=== PATIENT | female | born 1935 | race Caucasian/White ===

== ENCOUNTER 2017-12-08 14:31 | Inpatient (IN) | payer OTHER ==
--- NOTE | 2017-12-08 15:17 | PDOC ---
History of Present Illness - General Chief Complaint: Respiratory Stated Complaint: WEAKNESS Time Seen by Provider: 12/08/17 15:07 - History of Present Illness Initial Comments: 12/08/17 15:20 The patient is an 82 year old female with a history of HTN, COPD, RA, Anemia, Hypothyroid, UTI, Dementia, GERD, Breast CA who presents for evaluation of generalized weakness. The patient is accompanied by family who assist in providing the history. They report that the patient has been experiencing more generalized weakness and fatigue with reduced appetite prompting her presentation to the ED for evaluation. The daughter notes that the patient has had similar presentations due to UTI in the past. The [facility] as well. History is limited from the patient due to her dementia. The patient otherwise denies chest pain, SOB, nausea, vomiting , abdominal pain or changes with bowel movements. Past History - Past Medical History Allergies/Adverse Reactions: Allergies Allergy/AdvReac Type Severity Reaction Status Date / Time Penicillins Allergy Verified 12/08/17 14:59 Sulfa (Sulfonamide Allergy Verified 12/08/17 14:59 Antibiotics) Home Medications: Ambulatory Orders Acetaminophen 650 mg PO PRN 12/08/17 Acidoph/L.bulg/Bif.b/S.thermop [Leonela-Bid Caplet] 1 each PO BID 12/08/17 Atenolol [Tenormin -] 50 mg PO DAILY 12/08/17 Docusate Sodium 200 mg PO HS 12/08/17 Duloxetine HCl [Cymbalta] 60 mg PO DAILY 12/08/17 Ferrous Sulfate 325 mg PO BID 12/08/17 Fluconazole 200 mg PO DAILY 12/08/17 Gabapentin [Neurontin] 100 mg PO TID 12/08/17 Lansoprazole [Prevacid] 30 mg PO DAILY 12/08/17 Leflunomide [Arava -] 10 mg PO DAILY 12/08/17 Levothyroxine [Synthroid -] 112 mcg PO DAILY 12/08/17 Lisinopril [Prinivil] 10 mg PO DAILY 12/08/17 Loratadine [Claritin] 10 mg PO DAILY 12/08/17 Mag Hydrox/Aluminum Hyd/Simeth [Maalox Advanced Suspension] 30 ml PO TID PRN 05/19 Magnesium Hydroxide [Milk of Magnesia] 30 ml PO DAILY PRN 12/08/17 Melatonin 3 mg PO HS 12/08/17 Mirtazapine 22.5 mg PO DAILY 12/08/17 Olopatadine HCl [Patanol] 1 drop OU DAILY 12/08/17 Oxybutynin Chloride [Oxybutynin Chloride ER] 5 mg PO DAILY 12/08/17 Rivaroxaban [Xarelto -] 15 mg PO DAILY 12/08/17 Sennosides [Senna] 1 tab PO HS 12/08/17 Anemia: Yes Cancer: Yes (Breast CA) COPD: No GI Disorders: Yes (GERD) HTN: Yes Thyroid Disease: Yes (Hypothyroid) Other medical history: cellulitis - Surgical History Orthopedic Surgery: (LUMBAR SURGERY WITH SUKHJINDER PLACEMENT) - Suicide/Smoking/Psychosocial Hx Smoking History: Unknown if ever smoked Have you smoked in the past 12 months: No Information on smoking cessation initiated: No Hx Alcohol Use: No Drug/Substance Use Hx: No Review of Systems - Review of Systems Comments:: 12/08/17 15:42 Constitutional: Fevers, Fatigue, Anorexia. No chills, malaise HEENT: No Rhinorrhea, nasal congestion, visual changes Cardiovascular: No chest pain, syncope, palpitations, lightheadedness Respiratory: No Cough, SOB, Hemoptysis, Gastrointestinal: No Abdominal pain, Nausea, Vomiting, Constipation, Diarrhea, Melena Genitourinary: No Dysuria, Frequency, Urgency, Hesitancy, Hematuria, Flank pain Musculoskeletal: No Myalgia, arthralgia Skin: No rashes, itching, bruising, pallor Neurologic: No Headache, Dizziness, Numbness, Weakness, or Tingling Psychiatric: No Hallucinations. No SI or HI *Physical Exam - Vital Signs Last Vital Signs Temp Pulse Resp BP Pulse Ox 62 16 125/60 94 L 12/08/17 14:59 12/08/17 14:59 12/08/17 14:59 12/08/17 14:59 - Physical Exam Comments: 12/08/17 15:43 General Appearance: Nourished. No Apparent Distress HEENT: EOMI, TONI. No Pharyngeal Erythema, Tonsillar Exudate, Tonsillar Erythema Neck: No Cervical Lymphadenopathy Respiratory/Chest: Lungs Clear, Normal Breath Sounds. Bibasilar rales noted on exam. NoRhonchi, Wheezing Cardiovascular: Regular Rhythm, Regular Rate. No Murmur, Gallops, Rubs Gastrointestinal/Abdominal: Normal Bowel Sounds, Soft. No Guarding, Rebound, Tenderness Musculoskeletal: No CVA Tenderness Extremity: Normal Capillary Refill Integumentary: Normal Color, Dry, Warm Neurologic: Oriented x2 , Alert, Normal Mood/Affect, Normal Response, Heart Score/ECG Review #1 ECG reviewed & interpreted by me at: 15:45 (Prolonged QT. Inverted T waves in leads v3-v6) General ECG Interpretation: Sinus Rhythm, Normal Rate, No acute ischemic changes ED Treatment Course - LABORATORY CBC & Chemistry Diagram: 12/08/17 16:00 12/08/17 16:00 Medical Decision Making - Medical Decision Making 12/08/17 16:01 The patient is an 82 year old female with a history of HTN, COPD, RA, Anemia, Hypothyroid, UTI, Dementia, GERD, Breast CA who presents for evaluation of generalized weakness. Differential includes but is not limited to: UTI, Sepsis , Pneumonia, infectious, metabolic derangement. Given the patient history, we will obtain a sepsis work up including a cbc, cmp, lactate, troponin, vbg, ua, urine culture, chest plain film, ekg to evaluate further for possible etiologies. We will continue to monitor and reassess in the meantime. 12/08/17 17:36 CBC demonstrates an elevated wbc to 10.2. CMP demonstrates an elevated creatinine to 2.4. UA is positive for leuk esterase with elevated wbc. Given the the patient's lab results, it is likely her symptoms are due to a UTI and YAIR. The patient has a history of ESBL E.Coli. We discussed the case with Dr. Perdomo who recommended ertapenem for antibiotic coverage. The patient will require admission for iv hydration for YAIR and antibiotics. We discussed the case with the hospitalist team who accepted the patient for admission. *DC/Admit/Observation/Transfer Diagnosis at time of Disposition: YAIR (acute kidney injury) UTI (urinary tract infection) Qualifiers: Urinary tract infection type: site unspecified Hematuria presence: without hematuria Qualified Code(s): N39.0 - Urinary tract infection, site not specified - Discharge Dispostion Condition at time of disposition: Guarded Admit: Yes - Referrals - Patient Instructions - Post Discharge Activity
[2017-12-08 16:17] LABS: BASO % 0.7 % (0-2.0); EOS % 0.1 % (0-4.5); HEMATOCRIT 31.5 % (32.4-45.2); HEMOGLOBIN 10.6 GM/dL (10.7-15.3); LYMPH % 7.6 % (8-40); MCH 30.3 pg (25.7-33.7); MCHC 33.6 g/dl (32.0-36.0); MEAN CELL VOLUME 90.2 fl (80-96); MEAN PLT VOLUME 9.8 fl (7.5-11.1); NEUT % 84.6 % (42.8-82.8); PLATELET COUNT 184 K/MM3 (134-434); RBC 3.49 M/mm3 (3.60-5.2); RDW 14.3 % (11.6-15.6); WHITE BLOOD COUNT 10.9 K/mm3 (4.0-10.0)
[2017-12-08 16:22] LABS: VENOUS PC02 33.6 mmHg (38-52); VENOUS PH 7.38 (7.32-7.42); VENOUS PO2 40.8 mmHg (28-48)
[2017-12-08 16:33] LABS: INR 1.12 (0.82-1.09); PROTHROMBIN TIME (PATIENT) 12.6 SEC (9.98-11.88)
[2017-12-08 16:36] LABS: ACTIVATED PTT 27.4 SECONDS (26.9-34.4)
[2017-12-08 16:48] LABS: ALBUMIN 3.3 g/dl (3.4-5.0); ALK PHOS 131 U/L (45-117); ANION GAP 9 (8-16); BILIRUBIN,TOTAL 0.4 mg/dL (0.2-1.0); BLOOD UREA NITROGEN 48 mg/dL (7-18); CALCIUM 7.8 mg/dL (8.5-10.1); CHLORIDE 102 mmol/L (98-107); CO2 21 mmol/L (21-32); CREATININE 2.4 mg/dL (0.55-1.02); GLUCOSE,RANDOM 118 mg/dL (74-106); SGOT/AST 52 U/L (15-37); SGPT/ALT 39 U/L (12-78); SODIUM 132 mmol/L (136-145); TOT PROT 7.2 g/dl (6.4-8.2)
[2017-12-08 17:01] LABS: URINE APPEARANCE CLOUDY; URINE BILIRUBIN NEGATIVE (<2.0 mg/dL); URINE BLOOD 1+ (NEGATIVE); URINE COLOR DKYELLOW; URINE GLUCOSE (UA) NEGATIVE (NEGATIVE); URINE KETONE NEGATIVE (NEGATIVE); URINE NITRITE NEGATIVE (NEGATIVE); URINE UROBILINOGEN NEGATIVE mg/dL (0.2-1.0)
[2017-12-08 17:03] LABS: URINE LEUK ESTERASE 2+ (NEGATIVE); URINE PROTEIN 2+ (NEGATIVE)
[2017-12-08 17:04] LABS: URINE BACTERIA RARE /hpf (NONE SEEN); URINE HYALINE CAST 6 /lpf; URINE MUCUS FEW
--- NOTE | 2017-12-08 17:35 | PDOC ---
Attending Attestation - HPI HPI: 12/08/17 17:35 Pt is a 82 yo F resident from nursing facility with a PMHx of HTN, COPD, RA, Anemia, Hypothyroid, UTI, Dementia, GERD, Breast CA who presents to the ED with generalized weakness and AMS today. As per daughter, patient appears increasingly fatigued and weak which is unusual for her. Family at bedside report presentation today is similar to her UTIs in the past. As per family, patient had 101 fever at [place] and presents to the ED for further evaluation. - Physicial Exam PE: 12/08/17 17:35 GENERAL: Awake, alert, and fully oriented, in no acute distress. Sleeping comfortably. HEAD: No signs of trauma EYES: PERRLA, EOMI, sclera anicteric, conjunctiva clear ENT: Auricles normal inspection, nares patent, Moist mucosa NECK: Normal ROM, supple, no lymphadenopathy, JVD, or masses LUNGS: Breath sounds equal, clear to auscultation bilaterally. No wheezes, and no crackles HEART: Regular rate and rhythm, normal S1 and S2, no murmurs, rubs or gallops ABDOMEN: Soft, nontender, normoactive bowel sounds. No guarding, no rebound. No masses EXTREMITIES: Normal range of motion, no edema. No clubbing or cyanosis. No cords, erythema, or tenderness. Warm and well perfused. NEUROLOGICAL: Normal speech. Drowsy but arousable. Follows commands. SKIN: Warm, Dry, normal turgor, no rashes or lesions noted. - Medical Decision Making 12/08/17 17:35 Documentation prepared by Rica Hendrickson, acting as medical transcriber for Yuliana Morejon MD <Rica Hendrickson - Last Filed: 12/08/17 17:35> - Resident Resident Name: Emeka Frias - ED Attending Attestation I have performed the following: I have examined & evaluated the patient, The case was reviewed & discussed with the resident, I agree w/resident's findings & plan, Exceptions are as noted - Medical Decision Making 12/08/17 17:33 82 yo F here from nursing facility long ter resident there for AMS concerns by her daughter.who noticed pt altered recently., more drowsy, has had frequent uti. decreased po intake. differential sepsis, electrolyte abnml, uti, dehydration . plan labs ua cultures , iv hydration . yessyley admit. <Yuliana Morejon - Last Filed: 12/08/17 19:13> Heart Score/ECG Review #1 General ECG Interpretation: Sinus Rhythm, Normal Rate, Normal Intervals, No acute ischemic changes Compared to previous ECG there are: No significant change (comparison 01/04/16 . TWI V4 - V6) <Yuliana Morejon - Last Filed: 12/08/17 19:13>
[2017-12-08] MEDS ORDERED: ERTAPENEM SODIUM 1 GM/50 ML PRE-DOCKED IVPB ONE (17:42)
[2017-12-08] MEDS ORDERED: ACETAMINOPHEN 1000 MG/100 ML VIAL (NON FORMULARY) IVPB ONE (17:43)
[2017-12-08] MEDS ORDERED: SODIUM CHLORIDE 1,000 ML IV STA (17:43)
[2017-12-08] MEDS ORDERED: ACETAMINOPHEN INJECTION 100 ML IVPB ONE (17:55)
[2017-12-08] MEDS ORDERED: ERTAPENEM SODIUM 1 GM VIAL ONE (17:55)
--- NOTE | 2017-12-08 19:10 | PN ---
Teaching Attending Note Name of Resident: Donn Morales ATTENDING PHYSICIAN STATEMENT I saw and evaluated the patient. I reviewed the resident's note and discussed the case with the resident. I agree with the resident's findings and plan as documented. SUBJECTIVE: 82 F [place] with pmhx. of HTN, COPD, RA, Anemia, hypothyriod, UTI, dementia, GERD, Breast CA, who presents with weakness and AMS. At [facility] pt. has fever of 101. Upon my arrival no one at bedside, pt. did not speak to me. OBJECTIVE: Physical: VS: Vital Signs Period Temp Pulse Resp BP Sys/Banuelos Pulse Ox Last 24 Hr 98.2 F 62-67 16-18 125-164/60-74 90-95 GEN: NAD, Resting in bed, AA0X0 HEENT: NCAT, PERRL, Throat without erythema or exudates CARD: RRR S1, S2 RESP: Bilateral coarse expiratory wheezing ABD: BSx4, NTD to palpation EXT: +1 Pitting edema, bilateral and equal CBCD WBC 10.9 K/mm3 (4.0-10.0) H D 12/08/17 16:00 RBC 3.49 M/mm3 (3.60-5.2) L 12/08/17 16:00 Hgb 10.6 GM/dL (10.7-15.3) L D 12/08/17 16:00 Hct 31.5 % (32.4-45.2) L D 12/08/17 16:00 MCV 90.2 fl (80-96) 12/08/17 16:00 MCHC 33.6 g/dl (32.0-36.0) 12/08/17 16:00 RDW 14.3 % (11.6-15.6) 12/08/17 16:00 Plt Count 184 K/MM3 (134-434) 12/08/17 16:00 MPV 9.8 fl (7.5-11.1) 12/08/17 16:00 CMP Sodium 132 mmol/L (136-145) L 12/08/17 16:00 Potassium 4.0 mmol/L (3.5-5.1) 12/08/17 16:00 Chloride 102 mmol/L (98-107) 12/08/17 16:00 Carbon Dioxide 21 mmol/L (21-32) 12/08/17 16:00 Anion Gap 9 (8-16) 12/08/17 16:00 BUN 48 mg/dL (7-18) H 12/08/17 16:00 Creatinine 2.4 mg/dL (0.55-1.02) H 12/08/17 16:00 Creat Clearance w eGFR 19.33 (>60) 12/08/17 16:00 Random Glucose 118 mg/dL (74-106) H 12/08/17 16:00 Calcium 7.8 mg/dL (8.5-10.1) L 12/08/17 16:00 Total Bilirubin 0.4 mg/dL (0.2-1.0) D 12/08/17 16:00 AST 52 U/L (15-37) H 12/08/17 16:00 ALT 39 U/L (12-78) 12/08/17 16:00 Alkaline Phosphatase 131 U/L (45-117) H 12/08/17 16:00 Total Protein 7.2 g/dl (6.4-8.2) 12/08/17 16:00 Albumin 3.3 g/dl (3.4-5.0) L 12/08/17 16:00 Urine Test Results Urine Color Dkyellow 12/08/17 16:37 Urine Appearance Cloudy 12/08/17 16:37 Urine pH 6.0 (5.0-8.0) 12/08/17 16:37 Ur Specific [place] 1.013 (1.001-1.035) 12/08/17 16:37 Urine Protein 2+ (NEGATIVE) H 12/08/17 16:37 Urine Glucose (UA) Negative (NEGATIVE) 12/08/17 16:37 Urine Ketones Negative (NEGATIVE) 12/08/17 16:37 Urine Blood 1+ (NEGATIVE) H 12/08/17 16:37 Urine Nitrite Negative (NEGATIVE) 12/08/17 16:37 Urine Bilirubin Negative (<2.0 mg/dL) 12/08/17 16:37 Ur Leukocyte Esterase 2+ (NEGATIVE) H 12/08/17 16:37 Urine Bacteria Rare /hpf (NONE SEEN) 12/08/17 16:37 Urine Mucus Few 12/08/17 16:37 Home Medications Medication Instructions Recorded Acetaminophen 650 mg PO PRN 12/08/17 Acidoph/L.bulg/Bif.b/S.thermop 1 each PO BID 12/08/17 [Leonela-Bid Caplet] Atenolol [Tenormin -] 50 mg PO DAILY 12/08/17 Docusate Sodium 200 mg PO HS 12/08/17 Duloxetine HCl [Cymbalta] 60 mg PO DAILY 12/08/17 Ferrous Sulfate 325 mg PO BID 12/08/17 Fluconazole 200 mg PO DAILY 12/08/17 Gabapentin [Neurontin] 100 mg PO TID 12/08/17 Lansoprazole [Prevacid] 30 mg PO DAILY 12/08/17 Leflunomide [Arava -] 10 mg PO DAILY 12/08/17 Levothyroxine [Synthroid -] 112 mcg PO DAILY 12/08/17 Lisinopril [Prinivil] 10 mg PO DAILY 12/08/17 Loratadine [Claritin] 10 mg PO DAILY 12/08/17 Mag Hydrox/Aluminum Hyd/Simeth 30 ml PO TID PRN 12/08/17 [Maalox Advanced Suspension] Magnesium Hydroxide [Milk of 30 ml PO DAILY PRN 12/08/17 Magnesia] Melatonin 3 mg PO HS 12/08/17 Mirtazapine 22.5 mg PO DAILY 12/08/17 Olopatadine HCl [Patanol] 1 drop OU DAILY 12/08/17 Oxybutynin Chloride [Oxybutynin 5 mg PO DAILY 12/08/17 Chloride ER] Rivaroxaban [Xarelto -] 15 mg PO DAILY 12/08/17 Sennosides [Senna] 1 tab PO HS 12/08/17 ASSESSMENT AND PLAN: 82 F [place] with pmhx. of HTN, COPD, RA, Anemia, hypothyriod, UTI, dementia, GERD, Breast CA, being admitted for UTI 1.) AMS- Most likley from UTI - FU Ucx - ESBL E-Coli prior - C/W Ertapenum 2.) Hypothyriodism - C/W Synthroid - Chk TSH 3.) HTN - C/W Atenolol 4.) YAIR - Hold Kenneth - Gentle IVF - Renal Us - U lytes 5.) DVT Bilateral - Xarelto 6.) RA - Leflunamide 7.) GERD - C/W PPI 8.) Hx. OF Breast CA - Fu w/ PCP/Onc 9.) Asthma/COPD Exacerbation - Duonebs/Solumedrol - Pulm 10.) Hyponatremia - Mild - U osm/Sosm - Gentle IVF Place in Med-Sx
[2017-12-08] MEDS ORDERED: MAGNESIUM HYDROX 2400MG/30ML ORAL SUSPENSION 30 ML CUP PO PRN (19:12)
[2017-12-08] MEDS ORDERED: MAG HYDROX/AL HYDROX/SIMETH 30 ML UNIT-DOSE CUP PO PRN (19:12)
[2017-12-08] MEDS ORDERED: ACETAMINOPHEN 325 MG TABLET (FP) PO SCH (19:15)
[2017-12-08] MEDS ORDERED: LACTATED RINGERS SOLUTION 1,000 ML/1,000 ML INFUS.BAG IV SCH (19:30)
--- NOTE | 2017-12-08 19:58 | HP ---
CHIEF COMPLAINT: AMS, weakness PCP: Dr. Pritchard HISTORY OF PRESENT ILLNESS: Patient is a 82 yo F from [facility], with a PMHx of HTN, severe RA, hypothyroidism, B/L DVT's, recurrent UTI's, dementia, L breast cancer s/p lumpectomy, presented with weakness and AMS since . History was taking from daughter at bedside. Daughter says [facility] and [facility]. She also has had poor oral intake over the last week. Patient also complained of worsening dry cough this past week. Daughter states U/A at DC revealed UTI. Patient was also admitted for UTI with ESBL 2 years ago. Patient denies chest pain, SOB, dizziness, headache, abdominal pain, dysuria, hematuria, diarrhea. ER course was notable for: (1) Ertapenem (2) 1 L Bolus NS (3) IV tylenol Recent Travel: none PAST MEDICAL HISTORY: per HPI PAST SURGICAL HISTORY: back surgery for RA. 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 Social History: Smoking: n/a Alcohol: n/a Drugs: n/a Family History: Allergies Penicillins Allergy (Verified 12/08/17 14:59) Sulfa (Sulfonamide Antibiotics) Allergy (Verified 12/08/17 14:59) HOME MEDICATIONS: Home Medications Medication Instructions Recorded Acetaminophen 650 mg PO PRN 12/08/17 Acidoph/L.bulg/Bif.b/S.thermop 1 each PO BID 12/08/17 [Leonela-Bid Caplet] Atenolol [Tenormin -] 50 mg PO DAILY 12/08/17 Docusate Sodium 200 mg PO HS 12/08/17 Duloxetine HCl [Cymbalta] 60 mg PO DAILY 12/08/17 Ferrous Sulfate 325 mg PO BID 12/08/17 Fluconazole 200 mg PO DAILY 12/08/17 Gabapentin [Neurontin] 100 mg PO TID 12/08/17 Lansoprazole [Prevacid] 30 mg PO DAILY 12/08/17 Leflunomide [Arava -] 10 mg PO DAILY 12/08/17 Levothyroxine [Synthroid -] 112 mcg PO DAILY 12/08/17 Lisinopril [Prinivil] 10 mg PO DAILY 12/08/17 Loratadine [Claritin] 10 mg PO DAILY 12/08/17 Mag Hydrox/Aluminum Hyd/Simeth 30 ml PO TID PRN 12/08/17 [Maalox Advanced Suspension] Magnesium Hydroxide [Milk of 30 ml PO DAILY PRN 12/08/17 Magnesia] Melatonin 3 mg PO HS 12/08/17 Mirtazapine 22.5 mg PO DAILY 12/08/17 Olopatadine HCl [Patanol] 1 drop OU DAILY 12/08/17 Oxybutynin Chloride [Oxybutynin 5 mg PO DAILY 12/08/17 Chloride ER] Rivaroxaban [Xarelto -] 15 mg PO DAILY 12/08/17 Sennosides [Senna] 1 tab PO HS 12/08/17 REVIEW OF SYSTEMS CONSTITUTIONAL: fever, loss of appetite Absent: chills, diaphoresis, generalized weakness, malaise, weight change HEENT: Absent: rhinorrhea, nasal congestion, throat pain, throat swelling, difficulty swallowing, mouth swelling, ear pain, eye pain, visual changes CARDIOVASCULAR: Absent: chest pain, syncope, palpitations, irregular heart rate, lightheadedness , peripheral edema RESPIRATORY: cough Absent: shortness of breath, dyspnea with exertion, orthopnea, wheezing, stridor , hemoptysis GASTROINTESTINAL: nausea, vomiting Absent: abdominal pain, abdominal distension, diarrhea, constipation, melena, hematochezia GENITOURINARY: Absent: dysuria, frequency, urgency, hesitancy, hematuria, flank pain, genital pain MUSCULOSKELETAL: Absent: myalgia, arthralgia, joint swelling, back pain, neck pain SKIN: Absent: rash, itching, pallor HEMATOLOGIC/IMMUNOLOGIC: Absent: easy bleeding, easy bruising, lymphadenopathy, frequent infections ENDOCRINE: Absent: unexplained weight gain, unexplained weight loss, heat intolerance, cold intolerance NEUROLOGIC: Absent: headache, focal weakness or paresthesias, dizziness, unsteady gait, seizure, mental status changes, bladder or bowel incontinence PSYCHIATRIC: Absent: anxiety, depression, suicidal or homicidal ideation, hallucinations. PHYSICAL EXAMINATION Vital Signs - 24 hr 12/08/17 12/08/17 12/08/17 14:59 15:25 18:30 Temperature 98.2 F Pulse Rate 62 Pulse Rate [ 67 Right] Respiratory 16 18 Rate Blood Pressure 125/60 Blood Pressure 164/74 [Right Arm] O2 Sat by Pulse 94 L 90 L Oximetry (%) 12/08/17 18:41 Temperature Pulse Rate Pulse Rate [ Right] Respiratory Rate Blood Pressure Blood Pressure [Right Arm] O2 Sat by Pulse 95 Oximetry (%) GENERAL: laying in bed comfortably, A/o x 1 to name, NAD HEAD: Normal with no signs of trauma. EYES: Pupils equal, round and reactive to light, conjunctiva clear. EARS, NOSE, THROAT: oropharynx clear without exudates. dry mucous membranes LUNGS: scattered wheezing bilaterally HEART: Regular rate and rhythm, normal S1 and S2 without murmur, rub or gallop. ABDOMEN: Soft, nontender, not distended, normoactive bowel sounds, no guarding, no rebound, no masses. UPPER EXTREMITIES: 2+ pulses, No peripheral edema. LOWER EXTREMITIES: 2+ pulses, warm, 1+ LE edema B/L PSYCHIATRIC: Cooperative. Good eye contact. Appropriate mood and affect. Laboratory Results - last 24 hr 12/08/17 12/08/17 12/08/17 16:00 16:00 16:00 WBC 10.9 H D RBC 3.49 L Hgb 10.6 L D Hct 31.5 L D MCV 90.2 MCH 30.3 D MCHC 33.6 RDW 14.3 Plt Count 184 MPV 9.8 Neutrophils % 84.6 H Lymphocytes % 7.6 L D Monocytes % 7.0 Eosinophils % 0.1 Basophils % 0.7 PT with INR 12.60 H INR 1.12 PTT (Actin FS) 27.4 VBG pH 7.38 POC VBG pCO2 33.6 L D POC VBG pO2 40.8 D Mixed VBG HCO3 19.4 Sodium Potassium Chloride Carbon Dioxide Anion Gap BUN Creatinine Creat Clearance w eGFR Random Glucose Lactic Acid Calcium Total Bilirubin AST ALT Alkaline Phosphatase Total Protein Albumin Urine Color Urine Appearance Urine pH Ur Specific [place] Urine Protein Urine Glucose (UA) Urine Ketones Urine Blood Urine Nitrite Urine Bilirubin Urine Urobilinogen Ur Leukocyte Esterase Urine WBC (Auto) Urine RBC (Auto) Urine Bacteria Hyaline Casts Urine Mucus 12/08/17 12/08/17 12/08/17 16:00 16:00 16:37 WBC RBC Hgb Hct MCV MCH MCHC RDW Plt Count MPV Neutrophils % Lymphocytes % Monocytes % Eosinophils % Basophils % PT with INR INR PTT (Actin FS) VBG pH POC VBG pCO2 POC VBG pO2 Mixed VBG HCO3 Sodium 132 L Potassium 4.0 Chloride 102 Carbon Dioxide 21 Anion Gap 9 BUN 48 H Creatinine 2.4 H Creat Clearance w eGFR 19.33 Random Glucose 118 H Lactic Acid 0.8 Calcium 7.8 L Total Bilirubin 0.4 D AST 52 H ALT 39 Alkaline Phosphatase 131 H Total Protein 7.2 Albumin 3.3 L Urine Color Dkyellow Urine Appearance Cloudy Urine pH 6.0 Ur Specific [place] 1.013 Urine Protein 2+ H Urine Glucose (UA) Negative Urine Ketones Negative Urine Blood 1+ H Urine Nitrite Negative Urine Bilirubin Negative Urine Urobilinogen Negative Ur Leukocyte Esterase 2+ H Urine WBC (Auto) 32 Urine RBC (Auto) 1 Urine Bacteria Rare Hyaline Casts 6 Urine Mucus Few ASSESSMENT/PLAN: Patient is a 82 yo F from [facility], with a PMHx of HTN, severe RA, hypothyroidism, recurrent UTI's, dementia, L breast cancer s/p lumpectomy, presented with weakness and AMS and was found to have UTI. #AMS likely secondary to UTI -Cont. Ertapenem -history of ESBL -IV fluids NS -ID consulted -Tylenol PRN for fever -positive U/A -Ucx, bcx pending #YAIR -likely prerenal azotemia -decreased oral intake -cont. IV fluids NS 72ml/hour -urine lytes -avoid nephro toxins -Renal U/S -Hold home Kenneth #Acute Asthma/COPD exacerbation -Scattered expiratory wheezing on PE -Duonebs PRN, standing -1 x Solu-medrol 125mg -If wheezing continues consider po steroids -O2 therapy -Pulm consulted: Dr. Garcia #Hyponatremia -poor oral inake -Na 132 -IV fluids NS @ 72 -FU AM labs -Urine/Serum osm #HTN -Cont. Atenolol 50mg -Held Lisinopril due to YAIR #Anemia -Cont. Iron #RA -Lefunomide #Hx of DVT -Cont. Xarelto 15mg #Hypothyroidism -Levothyroxine 112mcg #Hx of Fungal infections -Fluconazole 200mg Daily #FEN -IV fluids NS -replete as needed #PPX -Xarelto Med-surge Visit type - Emergency Visit Emergency Visit: Yes ED Registration Date: 12/08/17 Care time: The patient presented to the Emergency Department on the above date and was hospitalized for further evaluation of their emergent condition. - New Patient This patient is new to me today: Yes Date on this admission: 12/09/17 - Critical Care Critical Care patient: No Hospitalist Screening - Colonoscopy Questionnaire Colonoscopy Questionnaire: Colonoscopy Questionnaire - Patient: 50 - 75 years old and never had a screening colonoscopy: Unknown History of colon or rectal polyps, or CA: Unknown History of IBD, Crohn's disease or UC: Unknown History of abdominal radiation therapy as a child: Unknown - Relative: 1 with colon or rectal CA, or polyps at age 60 or younger: Unknown Colon or rectal CA diagnosed at age 45 or younger: Unknown Multiple relatives with colon or rectal CA: Unknown - Outcome: Screening Result: Negative Screen
[2017-12-08] MEDS ORDERED: methylPREDNISolone NA SUCC 125 MG/2 ML VIAL IVPUSH ONE (19:59)
[2017-12-08] MEDS ORDERED: ALBUTEROL SO4 2.5/IPRATROPIUM 0.5 INH SOL 3 ML VIAL.NEB. NEB PRN (20:20)
[2017-12-08] MEDS ORDERED: HEPARIN NA (PORCINE) 5,000 UNITS/ML 1ML VIAL SQ SCH (22:00)
[2017-12-08] MEDS ORDERED: DOCUSATE SODIUM 100 MG CAPSULE (FP) PO ONE (22:24)
[2017-12-08] MEDS ORDERED: FERROUS SO4 325 MG TABLET (FP) ONE (22:25)
[2017-12-08] MEDS ORDERED: GABAPENTIN 100 MG CAPSULE (FP) ONE ×2 (22:25→22:26)
[2017-12-08] MEDS ORDERED: methylPREDNISolone NA SUCC 125 MG/2 ML VIAL ONE (22:25)
[2017-12-08] MEDS: SODIUM CHLORIDE 1,000 ML IV SCH (22:40)
[2017-12-08] MEDS: FERROUS SO4 325 MG TABLET (FP) PO SCH (22:41)
[2017-12-08] MEDS: DOCUSATE SODIUM 100 MG CAPSULE (FP) PO SCH (22:41)
[2017-12-08] MEDS: GABAPENTIN 100 MG CAPSULE (FP) PO SCH (22:41)
[2017-12-08] MEDS: SENNOSIDES 8.6MG TABLET (FP) PO SCH (22:44)
[2017-12-08] MEDS: LACTOBACILLUS ACIDOPHILUS 1 TABLET PO SCH (22:44)
--- NOTE | 2017-12-08 23:41 | EKG ---
Test Reason : Blood Pressure : / mmHG Vent. Rate : 064 BPM Atrial Rate : 064 BPM P-R Int : 158 ms QRS Dur : 092 ms QT Int : 466 ms P-R-T Axes : 067 -10 -14 degrees QTc Int : 480 ms NORMAL SINUS RHYTHM PROLONGED QT ABNORMAL ECG WHEN COMPARED WITH ECG OF 04-JAN-2016 09:55, T WAVE VARIATION Confirmed by TERRY CALDERON MD ([id number]) on 12/08/2017 11:41:27 PM Referred By: Confirmed By:TERRY CALDERON MD
[2017-12-09 03:34] LABS: URINE CREATININE 69.7 mg/dL (20-320)
[2017-12-09 04:02] LABS: RATIO URIN PROTEIN/URIN CREAT 1.49 MG/DL
[2017-12-09] MEDS ORDERED: GABAPENTIN 100 MG CAPSULE (FP) ONE (05:59)
[2017-12-09] MEDS ORDERED: ATENOLOL 25 MG TABLET (FP) ONE (06:16)
[2017-12-09] MEDS: GABAPENTIN 100 MG CAPSULE (FP) PO SCH ×3 (06:22→22:10)
[2017-12-09] MEDS: LEVOTHYROXINE NA 112 MCG TABLET (FP) PO SCH (06:22)
[2017-12-09 08:22] LABS: HEMATOCRIT 30.8 % (32.4-45.2); HEMOGLOBIN 10.2 GM/dL (10.7-15.3); LYMPH % 4.2 % (8-40); MCH 30.2 pg (25.7-33.7); MCHC 33.2 g/dl (32.0-36.0); MEAN CELL VOLUME 90.7 fl (80-96); MONO % 2.1 % (3.8-10.2); NEUT % 93.7 % (42.8-82.8); PLATELET COUNT 164 K/MM3 (134-434); RBC 3.39 M/mm3 (3.60-5.2); RDW 14.3 % (11.6-15.6); WHITE BLOOD COUNT 9.4 K/mm3 (4.0-10.0)
[2017-12-09 08:40] LABS: ANION GAP 15 (8-16); BLOOD UREA NITROGEN 37 mg/dL (7-18); CALCIUM 7.8 mg/dL (8.5-10.1); CHLORIDE 107 mmol/L (98-107); CO2 18 mmol/L (21-32); GLUCOSE,RANDOM 132 mg/dL (74-106); MAGNESIUM 2.1 mg/dL (1.8-2.4); POTASSIUM 3.9 mmol/L (3.5-5.1); SODIUM 140 mmol/L (136-145)
[2017-12-09 08:44] LABS: ALK PHOS 126 U/L (45-117); BILIRUBIN,TOTAL 0.3 mg/dL (0.2-1.0); CREATININE 1.5 mg/dL (0.55-1.02); PHOSPHOROUS 3.4 mg/dL (2.5-4.9); SGOT/AST 52 U/L (15-37); SGPT/ALT 37 U/L (12-78); TOT PROT 6.9 g/dl (6.4-8.2)
--- NOTE | 2017-12-09 08:55 | CON.ID ---
Consult Referred by:: hospitalist Reason for Consultation:: UTI - History of Present Illness Chief Complaint: lethargy and fever History of Present Illness: 82 year old NHR at [facility] with 5 day history of worsening weakness, lethargy, poor po intake - developed fever yesterday am and sent to ED found to be dehydrated with elevated WBC and pyuria history of uti two years ago for ecoli esbl- last hospitalized here has had recurrent utis at the [facility] more alert this am after hydration nonambulatory since back surgery about two years ago- has been in the NH since - History Source History Provided By: Family Member Limitations to Obtaining History: Dementia - Past Medical History 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 No: Renal Failure, Renal Inusuff, BPH, Cancer, Hematuria, Hemodialysis, Neurogenic Bladder, Renal Calculi, Other Heme/Onc: Yes: Cancer (breast cancer) Rheumatology: Yes: Rheumatoid Arthritis. No: Fibromyalgia, Gout, Lupus, Sarcoidosis, Vasculitis, Other - Past Surgical History Additional Surgical History: lumpectomy with left lymph node resection. 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 Place of : [facility] History of Recent Travel: No Home Medications - Allergies Allergies/Adverse Reactions: Allergies Allergy/AdvReac Type Severity Reaction Status Date / Time Penicillins Allergy Verified 12/08/17 14:59 Sulfa (Sulfonamide Allergy Verified 12/08/17 14:59 Antibiotics) - Home Medications Home Medications: Ambulatory Orders Acetaminophen 650 mg PO PRN 12/08/17 Acidoph/L.bulg/Bif.b/S.thermop [Leonela-Bid Caplet] 1 each PO BID 12/08/17 Atenolol [Tenormin -] 50 mg PO DAILY 12/08/17 Docusate Sodium 200 mg PO HS 12/08/17 Duloxetine HCl [Cymbalta] 60 mg PO DAILY 12/08/17 Ferrous Sulfate 325 mg PO BID 12/08/17 Fluconazole 200 mg PO DAILY 12/08/17 Gabapentin [Neurontin] 100 mg PO TID 12/08/17 Lansoprazole [Prevacid] 30 mg PO DAILY 12/08/17 Leflunomide [Arava -] 10 mg PO DAILY 12/08/17 Levothyroxine [Synthroid -] 112 mcg PO DAILY 12/08/17 Lisinopril [Prinivil] 10 mg PO DAILY 12/08/17 Loratadine [Claritin] 10 mg PO DAILY 12/08/17 Mag Hydrox/Aluminum Hyd/Simeth [Maalox Advanced Suspension] 30 ml PO TID PRN 05/19 Magnesium Hydroxide [Milk of Magnesia] 30 ml PO DAILY PRN 12/08/17 Melatonin 3 mg PO HS 12/08/17 Mirtazapine 22.5 mg PO DAILY 12/08/17 Olopatadine HCl [Patanol] 1 drop OU DAILY 12/08/17 Oxybutynin Chloride [Oxybutynin Chloride ER] 5 mg PO DAILY 12/08/17 Rivaroxaban [Xarelto -] 15 mg PO DAILY 12/08/17 Sennosides [Senna] 1 tab PO HS 12/08/17 Family Disease History - Family Disease History Family Disease History: Heart Disease: Mother, CA: Sister (breast), Respiratory : Father Review of Systems - Review of Systems Constitutional: reports: Fever, Lethargy, Loss of Appetite Eyes: reports: No Symptoms HENT: reports: No Symptoms Neck: reports: No Symptoms Respiratory: reports: Cough Gastrointestinal: reports: No Symptoms Genitourinary: reports: No Symptoms. denies: Burning, Frequency Breasts: reports: No Symptoms Reported Musculoskeletal: reports: No Symptoms Integumentary: reports: No Symptoms Physical Exam Vital Signs: Vital Signs Temperature 97.4 F L 12/09/17 06:00 Pulse Rate 62 12/09/17 06:00 Respiratory Rate 18 12/09/17 06:00 Blood Pressure 174/84 12/09/17 06:00 O2 Sat by Pulse Oximetry (%) 96 12/09/17 03:00 Constitutional: Yes: No Distress, Calm Eyes: Yes: Conjunctiva Clear HENT: Yes: Atraumatic, Normocephalic Neck: Yes: Supple, Trachea Midline Cardiovascular: Yes: Regular Rate and Rhythm Respiratory: Yes: Regular, CTA Bilaterally Gastrointestinal: Yes: Normal Bowel Sounds, Soft. No: Tenderness ...Rectal Exam: Yes: Deferred Renal/: No: CVA Tenderness - Left, CVA Tenderness - Right Breast(s): Yes: WNL Musculoskeletal: Yes: WNL Extremities: Yes: WNL Edema: No Integumentary: Yes: WNL Psychiatric: Yes: Alert Labs: CBC, BMP 12/09/17 07:00 12/09/17 07:00 Imaging - Results Chest X-ray: Report Reviewed Ultrasound: Report Reviewed Problem List - Problems (1) Fever Code(s): R50.9 - FEVER, UNSPECIFIED (2) UTI (urinary tract infection) Code(s): N39.0 - URINARY TRACT INFECTION, SITE NOT SPECIFIED Qualifiers: Urinary tract infection type: site unspecified Hematuria presence: without hematuria Qualified Code(s): N39.0 - Urinary tract infection, site not specified (3) YAIR (acute kidney injury) Code(s): N17.9 - ACUTE KIDNEY FAILURE, UNSPECIFIED (4) ESBL E. coli carrier Code(s): Z22.39 - CARRIER OF OTHER SPECIFIED BACTERIAL DISEASES Assessment/Plan fever/uti continue ertapenem given history of prior ecoli ESBl contact isolation hydration continue fungal prophylaxis influenza screen multiple antibiotic allergies just had a black stool- will send stool guaic
[2017-12-09] MEDS: PANTOPRAZOLE 40 MG TABLET (FP) PO SCH (09:45)
[2017-12-09] MEDS: LACTOBACILLUS ACIDOPHILUS 1 TABLET PO SCH ×2 (09:45→22:10)
[2017-12-09] MEDS: FERROUS SO4 325 MG TABLET (FP) PO SCH ×2 (09:46→22:10)
[2017-12-09] MEDS: FLUCONAZOLE 100 MG TABLET (UD) PO SCH (09:46)
[2017-12-09] MEDS: ERTAPENEM SODIUM 1 GM in SODIUM CHLORIDE 100 ML IVPB SCH (09:47)
[2017-12-09] MEDS: SOLIFENACIN SUCCINATE 5 MG TAB (FP) PO SCH (09:47)
[2017-12-09] MEDS: RIVAROXABAN 15 MG TABLET PO SCH (09:48)
[2017-12-09] MEDS ORDERED: DULoxetine HCL 60 MG CAPSULE.DR PO SCH (10:00)
[2017-12-09] MEDS ORDERED: LISINOPRIL 10 MG TABLET (FP) PO SCH (10:00)
[2017-12-09] MEDS ORDERED: ERTAPENEM SODIUM 1 GM/50 ML PRE-DOCKED IVPB SCH (10:00)
[2017-12-09] MEDS: ATENOLOL 50 MG TABLET (FP) PO SCH (10:01)
[2017-12-09] MEDS: LEFLUNOMIDE 10 MG TABLET PO SCH (10:33)
--- NOTE | 2017-12-09 11:33 | PN ---
Progress Note (short form) - Note Progress Note: PULMONARY CONSULTATION DICTATED 12/09/17 IMP ALTERED MENTAL STATUS UTI COUGH YAIR ANEMIA CALCIFIED GRANULOMA LLL DEMENTIA H/O BREAST CA S/P LUMPECTOMY H/O BILATERAL DVTS RA PLAN IVF ABX CULTURES O2 INHALED BRONCHODILATORS PRN MONITOR LYTES,RENAL FUNCTION AC DR FITZPATRICK Problem List - Problems (1) ESBL E. coli carrier Code(s): Z22.39 - CARRIER OF OTHER SPECIFIED BACTERIAL DISEASES (2) SIRS (systemic inflammatory response syndrome) Code(s): R65.10 - SIRS OF NON-INFECTIOUS ORIGIN W/O ACUTE ORGAN DYSFUNCTION (3) Altered mental status Code(s): R41.82 - ALTERED MENTAL STATUS, UNSPECIFIED (4) UTI (urinary tract infection) Code(s): N39.0 - URINARY TRACT INFECTION, SITE NOT SPECIFIED Qualifiers: Urinary tract infection type: site unspecified Hematuria presence: without hematuria Qualified Code(s): N39.0 - Urinary tract infection, site not specified (5) YAIR (acute kidney injury) Code(s): N17.9 - ACUTE KIDNEY FAILURE, UNSPECIFIED (6) H/O malignant neoplasm of breast Code(s): Z85.3 - PERSONAL HISTORY OF MALIGNANT NEOPLASM OF BREAST
--- NOTE | 2017-12-09 11:41 | PN ---
Physical Exam: SUBJECTIVE: Patient seen and examined No acute events overnight. Mentating better today per daughter. OBJECTIVE: Vital Signs Period Temp Pulse Resp BP Sys/Banuelos Pulse Ox Last 24 Hr 97.4 F-98.2 F 62-67 16-22 125-174/60-84 90-96 GENERAL: laying in bed comfortably, A/o x 3 NAD HEAD: Normal with no signs of trauma. EYES: Pupils equal, round and reactive to light, conjunctiva clear. EARS, NOSE, THROAT: oropharynx clear without exudates. dry mucous membranes LUNGS: scattered wheezing bilaterally HEART: Regular rate and rhythm, normal S1 and S2 without murmur, rub or gallop. ABDOMEN: Soft, nontender, not distended, normoactive bowel sounds, no guarding, no rebound, no masses. UPPER EXTREMITIES: 2+ pulses, No peripheral edema. LOWER EXTREMITIES: 2+ pulses, warm, 1+ LE edema B/L PSYCHIATRIC: Cooperative. Good eye contact. Appropriate mood and affect. Laboratory Results - last 24 hr 12/08/17 12/08/17 12/08/17 16:00 16:00 16:00 WBC 10.9 H D RBC 3.49 L Hgb 10.6 L D Hct 31.5 L D MCV 90.2 MCH 30.3 D MCHC 33.6 RDW 14.3 Plt Count 184 MPV 9.8 Neutrophils % 84.6 H Lymphocytes % 7.6 L D Monocytes % 7.0 Eosinophils % 0.1 Basophils % 0.7 PT with INR 12.60 H INR 1.12 PTT (Actin FS) 27.4 VBG pH 7.38 POC VBG pCO2 33.6 L D POC VBG pO2 40.8 D Mixed VBG HCO3 19.4 Sodium Potassium Chloride Carbon Dioxide Anion Gap BUN Creatinine Creat Clearance w eGFR Random Glucose Serum Osmolality Lactic Acid Calcium Phosphorus Magnesium Total Bilirubin AST ALT Alkaline Phosphatase Troponin I Total Protein Albumin TSH Urine Color Urine Appearance Urine pH Ur Specific Harvey Urine Protein Urine Glucose (UA) Urine Ketones Urine Blood Urine Nitrite Urine Bilirubin Urine Urobilinogen Ur Leukocyte Esterase Urine WBC (Auto) Urine RBC (Auto) Urine Bacteria Hyaline Casts Urine Mucus Urine Osmolality U Random Total Protein Ur Random Sodium Ur Random Potassium Ur Random Chloride Urine Creatinine Protein/Creatinin Ratio Stool Occult Blood 12/08/17 12/08/17 12/08/17 16:00 16:00 16:37 WBC RBC Hgb Hct MCV MCH MCHC RDW Plt Count MPV Neutrophils % Lymphocytes % Monocytes % Eosinophils % Basophils % PT with INR INR PTT (Actin FS) VBG pH POC VBG pCO2 POC VBG pO2 Mixed VBG HCO3 Sodium 132 L Potassium 4.0 Chloride 102 Carbon Dioxide 21 Anion Gap 9 BUN 48 H Creatinine 2.4 H Creat Clearance w eGFR 19.33 Random Glucose 118 H Serum Osmolality Lactic Acid 0.8 Calcium 7.8 L Phosphorus Magnesium Total Bilirubin 0.4 D AST 52 H ALT 39 Alkaline Phosphatase 131 H Troponin I < 0.02 Total Protein 7.2 Albumin 3.3 L TSH Urine Color Dkyellow Urine Appearance Cloudy Urine pH 6.0 Ur Specific Harvey 1.013 Urine Protein 2+ H Urine Glucose (UA) Negative Urine Ketones Negative Urine Blood 1+ H Urine Nitrite Negative Urine Bilirubin Negative Urine Urobilinogen Negative Ur Leukocyte Esterase 2+ H Urine WBC (Auto) 32 Urine RBC (Auto) 1 Urine Bacteria Rare Hyaline Casts 6 Urine Mucus Few Urine Osmolality U Random Total Protein Ur Random Sodium Ur Random Potassium Ur Random Chloride Urine Creatinine Protein/Creatinin Ratio Stool Occult Blood 12/08/17 12/08/17 12/09/17 23:06 Unknown 00:00 WBC RBC Hgb Hct MCV MCH MCHC RDW Plt Count MPV Neutrophils % Lymphocytes % Monocytes % Eosinophils % Basophils % PT with INR INR PTT (Actin FS) VBG pH POC VBG pCO2 POC VBG pO2 Mixed VBG HCO3 Sodium Potassium Chloride Carbon Dioxide Anion Gap BUN Creatinine Creat Clearance w eGFR Random Glucose Serum Osmolality 288 Lactic Acid Calcium Phosphorus Magnesium Total Bilirubin AST ALT Alkaline Phosphatase Troponin I Total Protein Albumin TSH Urine Color Urine Appearance Urine pH Ur Specific Harvey Urine Protein Urine Glucose (UA) Urine Ketones Urine Blood Urine Nitrite Urine Bilirubin Urine Urobilinogen Ur Leukocyte Esterase Urine WBC (Auto) Urine RBC (Auto) Urine Bacteria Hyaline Casts Urine Mucus Urine Osmolality 407 U Random Total Protein 104 H Ur Random Sodium 39 Ur Random Potassium 39.6 Ur Random Chloride 31 Urine Creatinine 69.7 Protein/Creatinin Ratio 1.49 Stool Occult Blood 12/09/17 12/09/17 12/09/17 07:00 07:00 07:00 WBC 9.4 RBC 3.39 L Hgb 10.2 L Hct 30.8 L MCV 90.7 MCH 30.2 MCHC 33.2 RDW 14.3 Plt Count 164 MPV 10.0 Neutrophils % 93.7 H Lymphocytes % 4.2 L D Monocytes % 2.1 L Eosinophils % 0.0 D Basophils % 0.0 PT with INR INR PTT (Actin FS) VBG pH POC VBG pCO2 POC VBG pO2 Mixed VBG HCO3 Sodium 140 Potassium 3.9 Chloride 107 Carbon Dioxide 18 L Anion Gap 15 BUN 37 H Creatinine 1.5 H Creat Clearance w eGFR 33.25 Random Glucose 132 H Serum Osmolality Lactic Acid Calcium 7.8 L Phosphorus 3.4 Magnesium 2.1 Total Bilirubin 0.3 D AST 52 H ALT 37 Alkaline Phosphatase 126 H Troponin I Total Protein 6.9 Albumin 3.0 L TSH 0.90 Cancelled Urine Color Urine Appearance Urine pH Ur Specific Harvey Urine Protein Urine Glucose (UA) Urine Ketones Urine Blood Urine Nitrite Urine Bilirubin Urine Urobilinogen Ur Leukocyte Esterase Urine WBC (Auto) Urine RBC (Auto) Urine Bacteria Hyaline Casts Urine Mucus Urine Osmolality U Random Total Protein Ur Random Sodium Ur Random Potassium Ur Random Chloride Urine Creatinine Protein/Creatinin Ratio Stool Occult Blood 12/09/17 09:25 WBC RBC Hgb Hct MCV MCH MCHC RDW Plt Count MPV Neutrophils % Lymphocytes % Monocytes % Eosinophils % Basophils % PT with INR INR PTT (Actin FS) VBG pH POC VBG pCO2 POC VBG pO2 Mixed VBG HCO3 Sodium Potassium Chloride Carbon Dioxide Anion Gap BUN Creatinine Creat Clearance w eGFR Random Glucose Serum Osmolality Lactic Acid Calcium Phosphorus Magnesium Total Bilirubin AST ALT Alkaline Phosphatase Troponin I Total Protein Albumin TSH Urine Color Urine Appearance Urine pH Ur Specific Harvey Urine Protein Urine Glucose (UA) Urine Ketones Urine Blood Urine Nitrite Urine Bilirubin Urine Urobilinogen Ur Leukocyte Esterase Urine WBC (Auto) Urine RBC (Auto) Urine Bacteria Hyaline Casts Urine Mucus Urine Osmolality U Random Total Protein Ur Random Sodium Ur Random Potassium Ur Random Chloride Urine Creatinine Protein/Creatinin Ratio Stool Occult Blood Negative Active Medications Generic Name Dose Route Start Last Admin Trade Name Freq PRN Reason Stop Dose Admin Acetaminophen 650 mg 12/08/17 20:00 Tylenol - PO Q6H PRN FEVER Al Hydroxide/Mg Hydroxide 30 ml 12/08/17 19:12 Mylanta Oral Suspension - PO TID PRN PAIN Albuterol/Ipratropium 1 amp 12/08/17 20:00 Duoneb - NEB RQID HALIE Albuterol/Ipratropium 1 amp 12/08/17 20:20 Duoneb - NEB Q6H PRN ASTHMA Atenolol 50 mg 12/09/17 10:00 12/09/17 10:01 Tenormin - PO Not Given DAILY HALIE Docusate Sodium 200 mg 12/08/17 22:00 12/08/17 22:41 Colace - PO 200 mg HS HALIE Administration Ferrous Sulfate 325 mg 12/08/17 22:00 12/09/17 09:46 Feosol - PO 325 mg BID HALIE Administration Fluconazole 200 mg 12/09/17 10:00 12/09/17 09:46 Diflucan - PO 200 mg DAILY HALIE Administration Gabapentin 100 mg 12/08/17 22:00 12/09/17 06:22 Neurontin - PO 100 mg TID HALIE Administration Sodium Chloride 1,000 mls @ 42 mls/hr 12/08/17 19:45 12/08/17 22:40 Normal Saline - IV 42 mls/hr ASDIR HALIE Administration Ertapenem 1 gm/ Sodium 100 mls @ 200 mls/hr 12/09/17 10:00 12/09/17 09:47 Chloride IVPB 200 mls/hr DAILY HALIE Administration Lactobacillus Acidophilus 1 cap 12/08/17 22:00 12/09/17 09:45 Bacid - PO 1 cap BID HALIE Administration Leflunomide 10 mg 12/09/17 10:00 12/09/17 10:33 Arava - PO 10 mg DAILY HALIE Administration Levothyroxine Sodium 112 mcg 12/09/17 07:00 12/09/17 06:22 Synthroid - PO 112 mcg DAILY@0700 HALIE Administration Magnesium Hydroxide 30 ml 12/08/17 19:12 Milk Of Magnesia - PO DAILY PRN PAIN Non-Formulary Medication 1 drop 12/09/17 10:00 Olopatadine Hcl [Patanol] OU DAILY HALIE Pantoprazole Sodium 40 mg 12/09/17 10:00 12/09/17 09:45 Protonix - PO 40 mg DAILY HALIE Administration Rivaroxaban 15 mg 12/09/17 10:00 12/09/17 09:48 Xarelto - PO 15 mg DAILY HALIE Administration Senna 1 tab 12/08/17 22:00 12/08/17 22:44 Senna - PO 1 tab HS HALIE Administration Solifenacin 5 mg 12/09/17 10:00 12/09/17 09:47 Vesicare - PO 5 mg DAILY HALIE Administration ASSESSMENT/PLAN: Patient is a 82 yo F from [facility], with a PMHx of HTN, severe RA, hypothyroidism, recurrent UTI's, dementia, L breast cancer s/p lumpectomy, presented with weakness and AMS and was found to have UTI. #Acute metabolic encephalopathy 2/2 to UTI, ESBL in the past -Urine culture pending -Continue Ertapenem -ID consult -Tylenol PRN for fever -positive U/A #YAIR, likely prerenal 2/2 to decreased oral intake -cont. IV fluids NS 42ml/hour -urine lytes -avoid nephrotoxins -Renal U/S-- no hydronephrosis -Hold home Kenneth-I #Acute Asthma/COPD exacerbation -Duonebs PRN, standing -O2 therapy -Pulm consulted: Dr. Garcia #Hyponatremia -IV fluids NS @ 42 cc/hr -Continue to monitor #HTN -Cont. Atenolol 50mg -Held Lisinopril due to YAIR #Anemia -Cont. Iron #RA -Lefunomide #Hx of DVT -Cont. Xarelto #Hypothyroidism -Continue Synthroid #Hx of Fungal infections -continue Fluconazole #FEN -IV fluids NS @ 42 cc/hr -replete as needed -NPO #PPX -Xarelto Med-surg Visit type - Emergency Visit Emergency Visit: Yes ED Registration Date: 12/08/17 Care time: The patient presented to the Emergency Department on the above date and was hospitalized for further evaluation of their emergent condition. - New Patient This patient is new to me today: Yes Date on this admission: 12/09/17 - Critical Care Critical Care patient: No
--- NOTE | 2017-12-09 12:31 | CONS ---
PULMONARY CONSULTATION DATE OF CONSULTATION: 12/09/2017 REFERRING PHYSICIAN: Landon Monae MD The patient is an 82-year-old white female with past medical history of dementia, UTIs, history of breast CA, history of rheumatoid arthritis, history of lumpectomy secondary to breast CA, history of back surgery complicated by a fungal infection, has been nonambulatory since that time 2 years ago, who is a detention resident, who was transferred to [facility] with complaint of 5-day history of generalized weakness, lethargy, and poor p.o. intake. Apparently, according to the patient's daughters, for the past week or so, the patient has been having progressive weakness and lethargy. She has been having decreased p.o. intake. Yesterday, she started developing fever as well as nausea and vomiting. She presented to the emergency room with the above. In the ER, she was noted to be dehydrated with elevated white count and having pyuria. She was started on IV fluids with improved mental status after hydration. Of note, she has had recurrent UTIs in the detention. Patient was started on broad-spectrum antibiotics and IV fluids. The patient has history of smoking many years ago. There is no history of occupational exposure to chemicals or fumes. Of note is according to the patient's daughter, she had had a nodule on the chest, which the family has decided not to pursue secondary to overall poor mental as well as health status. PAST MEDICAL HISTORY: Again includes breast CA status post lumpectomy, lymph node dissection, back surgery complicated by a fungal infection, history of rheumatoid arthritis, dementia, recurrent UTIs. REVIEW OF SYSTEMS: Positive orthopnea, positive occasional cough, nonproductive; positive weakness; positive decreased p.o. intake; positive lethargy; positive fever. No chest pain. No palpitations. No abdominal pain. CURRENT MEDICATIONS: Include Patanol, Tylenol, Mylanta, , Diflucan, Xarelto, Neurontin, Bacid, DuoNeb, Tenormin, Colace, milk of magnesia, senna, Arava, VESIcare, Feosol, Protonix, and Synthroid. PHYSICAL EXAMINATION: General: The patient is an elderly white female, well developed, well nourished, awake, alert, appears comfortable in no acute distress. Vital Signs: She is currently afebrile. Blood pressure is 174/84. Respiratory rate is 18. Saturation is 96% on 2 L. HEENT: Normocephalic, atraumatic. Neck: Supple. Heart: Regular. S1, S2. Chest: A few bibasilar crackles. Abdomen: Soft. Bowel sounds are positive. Extremities: No cyanosis or edema. DIAGNOSTIC DATA: WBC is 9.4, hemoglobin 10.2, hematocrit 30.8, with a platelet count of 164,000 and polys 94, lymphs 4, and monocytes 2. INR is 1.12. Venous blood gas 7.38, pCO2 of 33, a pO2 of 40, bicarbonate of 19. BUN 37, creatinine 1.5; on admission, was 48 and 2.4. Chest x-ray: No infiltrates and no effusions. Calcified granuloma in the left lower lobe. IMPRESSION: 1. Altered mental status, fever, felt secondary to urinary tract infection, possible urosepsis. 2. Acute renal failure secondary to dehydration. 3. Calcified granuloma, left lower lobe. 4. History of breast cancer. 5. Anemia. PLAN: IV fluids, monitor electrolytes to ensure renal function, obtain cultures, broad-spectrum antibiotics as per Infectious Disease. Will not pursue further diagnostic workup of calcified granuloma as this is consistent with benign etiology. SHWETA FITZPATRICK M.D. [id number]
[2017-12-09 13:56] VITALS: BMI 27.8
--- NOTE | 2017-12-09 17:15 | PN ---
Teaching Attending Note Name of Resident: Nolberto Kebede ATTENDING PHYSICIAN STATEMENT I saw and evaluated the patient. I reviewed the resident's note and discussed the case with the resident. I agree with the resident's findings and plan as documented. SUBJECTIVE: OBJECTIVE: Vital Signs Period Temp Pulse Resp BP Sys/Banuelos Pulse Ox Last 24 Hr 97.4 F-98.2 F 60-67 18-22 130-174/68-84 90-96 Laboratory Results - last 24 hr 12/08/17 12/08/17 12/08/17 16:00 23:06 Unknown WBC RBC Hgb Hct MCV MCH MCHC RDW Plt Count MPV Neutrophils % Lymphocytes % Monocytes % Eosinophils % Basophils % Sodium 132 L Potassium 4.0 Chloride 102 Carbon Dioxide 21 Anion Gap 9 BUN 48 H Creatinine 2.4 H Creat Clearance w eGFR 19.33 Random Glucose 118 H Serum Osmolality 288 Calcium 7.8 L Phosphorus Magnesium Total Bilirubin 0.4 D AST 52 H ALT 39 Alkaline Phosphatase 131 H Troponin I < 0.02 Total Protein 7.2 Albumin 3.3 L TSH Urine Osmolality U Random Total Protein 104 H Ur Random Sodium 39 Ur Random Potassium 39.6 Ur Random Chloride 31 Urine Creatinine 69.7 Protein/Creatinin Ratio 1.49 Stool Occult Blood 12/09/17 12/09/17 12/09/17 00:00 07:00 07:00 WBC 9.4 RBC 3.39 L Hgb 10.2 L Hct 30.8 L MCV 90.7 MCH 30.2 MCHC 33.2 RDW 14.3 Plt Count 164 MPV 10.0 Neutrophils % 93.7 H Lymphocytes % 4.2 L D Monocytes % 2.1 L Eosinophils % 0.0 D Basophils % 0.0 Sodium 140 Potassium 3.9 Chloride 107 Carbon Dioxide 18 L Anion Gap 15 BUN 37 H Creatinine 1.5 H Creat Clearance w eGFR 33.25 Random Glucose 132 H Serum Osmolality Calcium 7.8 L Phosphorus 3.4 Magnesium 2.1 Total Bilirubin 0.3 D AST 52 H ALT 37 Alkaline Phosphatase 126 H Troponin I Total Protein 6.9 Albumin 3.0 L TSH 0.90 Urine Osmolality 407 U Random Total Protein Ur Random Sodium Ur Random Potassium Ur Random Chloride Urine Creatinine Protein/Creatinin Ratio Stool Occult Blood 12/09/17 12/09/17 07:00 09:25 WBC RBC Hgb Hct MCV MCH MCHC RDW Plt Count MPV Neutrophils % Lymphocytes % Monocytes % Eosinophils % Basophils % Sodium Potassium Chloride Carbon Dioxide Anion Gap BUN Creatinine Creat Clearance w eGFR Random Glucose Serum Osmolality Calcium Phosphorus Magnesium Total Bilirubin AST ALT Alkaline Phosphatase Troponin I Total Protein Albumin TSH Cancelled Urine Osmolality U Random Total Protein Ur Random Sodium Ur Random Potassium Ur Random Chloride Urine Creatinine Protein/Creatinin Ratio Stool Occult Blood Negative Current Medications Generic Name Dose Route Start Last Admin Trade Name Freq PRN Reason Stop Dose Admin Acetaminophen 650 mg 12/08/17 20:00 Tylenol - PO Q6H PRN FEVER Al Hydroxide/Mg Hydroxide 30 ml 12/08/17 19:12 Mylanta Oral Suspension - PO TID PRN PAIN Albuterol/Ipratropium 1 amp 12/08/17 20:00 Duoneb - NEB RQID HALIE Albuterol/Ipratropium 1 amp 12/08/17 20:20 Duoneb - NEB Q6H PRN ASTHMA Atenolol 50 mg 12/09/17 10:00 12/09/17 10:01 Tenormin - PO Not Given DAILY HALIE Docusate Sodium 200 mg 12/08/17 22:00 12/08/17 22:41 Colace - PO 200 mg HS HALIE Administration Ferrous Sulfate 325 mg 12/08/17 22:00 12/09/17 09:46 Feosol - PO 325 mg BID HALIE Administration Fluconazole 200 mg 12/09/17 10:00 12/09/17 09:46 Diflucan - PO 200 mg DAILY HALIE Administration Gabapentin 100 mg 12/08/17 22:00 12/09/17 15:13 Neurontin - PO 100 mg TID HALIE Administration Sodium Chloride 1,000 mls @ 42 mls/hr 12/08/17 19:45 12/08/17 22:40 Normal Saline - IV 42 mls/hr ASDIR HALIE Administration Ertapenem 1 gm/ Sodium 100 mls @ 200 mls/hr 12/09/17 10:00 12/09/17 09:47 Chloride IVPB 200 mls/hr DAILY HALIE Administration Lactobacillus Acidophilus 1 cap 12/08/17 22:00 12/09/17 09:45 Bacid - PO 1 cap BID HALIE Administration Leflunomide 10 mg 12/09/17 10:00 12/09/17 10:33 Arava - PO 10 mg DAILY HALIE Administration Levothyroxine Sodium 112 mcg 12/09/17 07:00 04/10/18 06:22 Synthroid - PO 112 mcg DAILY@0700 HALIE Administration Magnesium Hydroxide 30 ml 12/08/17 19:12 Milk Of Magnesia - PO DAILY PRN PAIN Non-Formulary Medication 1 drop 12/09/17 10:00 Olopatadine Hcl [Patanol] OU DAILY HALIE Pantoprazole Sodium 40 mg 12/09/17 10:00 12/09/17 09:45 Protonix - PO 40 mg DAILY HALIE Administration Rivaroxaban 15 mg 12/09/17 10:00 12/09/17 09:48 Xarelto - PO 15 mg DAILY HALIE Administration Senna 1 tab 12/08/17 22:00 12/08/17 22:44 Senna - PO 1 tab HS HALIE Administration Solifenacin 5 mg 12/09/17 10:00 12/09/17 09:47 Vesicare - PO 5 mg DAILY HALIE Administration ASSESSMENT AND PLAN: This is an 82 year old woman from [facility] who has a history of HTN, RA , hypothyroidism, recurrent UTIs, dementia, breast cancer, left lumpectomy, DVT who presented to the ED with weakness and confusion. 1. Acute metabolic encephalopathy secondary to UTI - Continue Invanz - has history of ESBL E. coli UTI - Urine culture pending 2. Acute kidney injury - Improving - Continue IV fluid - Lisinopril held 3. Hyponatremia - Improved witg IV fluid 4. HTN - Continue Atenolol - Lisinopril held secondary to YAIR 5. Anemia - Continue ferrous sulfate 6. Rheumatoid arthritis - Continue Arava 7. History of DVT - Continue Xarelto 8. Hypothyroidism - Continue Synthroid 9. Dementia 10. History of breast cancer, left lumpectomy
[2017-12-09] MEDS: ACETAMINOPHEN 325 MG TABLET (FP) PO PRN (18:24)
[2017-12-09] MEDS: ALBUTEROL SO4 2.5/IPRATROPIUM 0.5 INH SOL 3 ML VIAL.NEB. NEB SCH (21:13)
[2017-12-09] MEDS: SENNOSIDES 8.6MG TABLET (FP) PO SCH (22:10)
[2017-12-09] MEDS: DOCUSATE SODIUM 100 MG CAPSULE (FP) PO SCH (22:10)
[2017-12-09] MEDS: SODIUM CHLORIDE 1,000 ML IV SCH (22:11)
[2017-12-10] MEDS: LEVOTHYROXINE NA 112 MCG TABLET (FP) PO SCH (06:27)
[2017-12-10] MEDS: GABAPENTIN 100 MG CAPSULE (FP) PO SCH ×3 (06:27→22:50)
[2017-12-10 08:06] LABS: BASO % 0.3 % (0-2.0); EOS % 0.1 % (0-4.5); HEMOGLOBIN 9.4 GM/dL (10.7-15.3); LYMPH % 15.1 % (8-40); MCH 29.4 pg (25.7-33.7); MCHC 32.4 g/dl (32.0-36.0); MEAN CELL VOLUME 90.8 fl (80-96); MEAN PLT VOLUME 9.8 fl (7.5-11.1); MONO % 10.7 % (3.8-10.2); NEUT % 73.8 % (42.8-82.8); PLATELET COUNT 162 K/MM3 (134-434); RBC 3.19 M/mm3 (3.60-5.2); RDW 14.5 % (11.6-15.6); WHITE BLOOD COUNT 8.4 K/mm3 (4.0-10.0)
[2017-12-10 08:39] LABS: ANION GAP 15 (8-16); BLOOD UREA NITROGEN 28 mg/dL (7-18); CALCIUM 8.1 mg/dL (8.5-10.1); CHLORIDE 111 mmol/L (98-107); CO2 19 mmol/L (21-32); CREATININE 1.1 mg/dL (0.55-1.02); GLUCOSE,RANDOM 81 mg/dL (74-106); POTASSIUM 3.4 mmol/L (3.5-5.1); SODIUM 145 mmol/L (136-145)
[2017-12-10] MEDS ORDERED: PT OWN MED DRAWER 7, Y5N ONE (09:47)
[2017-12-10] MEDS: FERROUS SO4 325 MG TABLET (FP) PO SCH ×2 (09:52→22:50)
[2017-12-10] MEDS: LACTOBACILLUS ACIDOPHILUS 1 TABLET PO SCH ×2 (09:52→22:50)
[2017-12-10] MEDS: SOLIFENACIN SUCCINATE 5 MG TAB (FP) PO SCH (09:53)
[2017-12-10] MEDS: PANTOPRAZOLE 40 MG TABLET (FP) PO SCH (09:53)
[2017-12-10] MEDS: FLUCONAZOLE 100 MG TABLET (UD) PO SCH (09:53)
[2017-12-10] MEDS: ERTAPENEM SODIUM 1 GM in SODIUM CHLORIDE 100 ML IVPB SCH (09:53)
[2017-12-10] MEDS: ATENOLOL 50 MG TABLET (FP) PO SCH (09:54)
[2017-12-10] MEDS: LEFLUNOMIDE 10 MG TABLET PO SCH (09:54)
[2017-12-10] MEDS: RIVAROXABAN 15 MG TABLET PO SCH (09:55)
[2017-12-10] MEDS: ALBUTEROL SO4 2.5/IPRATROPIUM 0.5 INH SOL 3 ML VIAL.NEB. NEB SCH ×4 (12:00→21:36)
--- NOTE | 2017-12-10 12:11 | PN ---
<Nolberto Kebede - Last Filed: 12/10/17 16:40> Physical Exam: SUBJECTIVE: Patient seen and examined No acute events overnight. This morning, patient feeling well without complaints. Denies fever, chills, dysuria. OBJECTIVE: Vital Signs Period Temp Pulse Resp BP Sys/Banuelos Pulse Ox Last 24 Hr 97.4 F-98.0 F 60-69 18-20 148-164/74-83 95-96 GENERAL: Laying in bed comfortably, A/o x 3 NAD HEAD: Normal with no signs of trauma. EYES: Pupils equal, round and reactive to light, conjunctiva clear. EARS, NOSE, THROAT: Oropharynx clear without exudates. Dry mucous membranes LUNGS: Scattered wheezing bilaterally HEART: Regular rate and rhythm, normal S1 and S2 without murmur, rub or gallop. ABDOMEN: Soft, nontender, not distended, normoactive bowel sounds, no guarding, no rebound, no masses. UPPER EXTREMITIES: 2+ pulses, No peripheral edema. LOWER EXTREMITIES: 2+ pulses, warm, 1+ LE edema B/L PSYCHIATRIC: Cooperative. Good eye contact. Appropriate mood and affect. Laboratory Results - last 24 hr 12/10/17 12/10/17 06:45 06:45 WBC 8.4 RBC 3.19 L Hgb 9.4 L Hct 29.0 L MCV 90.8 MCH 29.4 MCHC 32.4 RDW 14.5 Plt Count 162 MPV 9.8 Neutrophils % 73.8 D Lymphocytes % 15.1 D Monocytes % 10.7 H D Eosinophils % 0.1 D Basophils % 0.3 D Sodium 145 Potassium 3.4 L Chloride 111 H Carbon Dioxide 19 L Anion Gap 15 BUN 28 H Creatinine 1.1 H Random Glucose 81 Calcium 8.1 L Active Medications Generic Name Dose Route Start Last Admin Trade Name Freq PRN Reason Stop Dose Admin Acetaminophen 650 mg 12/08/17 20:00 12/09/17 18:24 Tylenol - PO 650 mg Q6H PRN Administration FEVER Al Hydroxide/Mg Hydroxide 30 ml 12/08/17 19:12 Mylanta Oral Suspension - PO TID PRN PAIN Albuterol/Ipratropium 1 amp 12/08/17 20:00 12/09/17 21:13 Duoneb - NEB 1 amp RQID HALIE Administration Albuterol/Ipratropium 1 amp 12/08/17 20:20 Duoneb - NEB Q6H PRN ASTHMA Atenolol 50 mg 12/09/17 10:00 12/10/17 09:54 Tenormin - PO 50 mg DAILY HALIE Administration Docusate Sodium 200 mg 12/08/17 22:00 12/09/17 22:10 Colace - PO 200 mg HS HALIE Administration Ferrous Sulfate 325 mg 12/08/17 22:00 12/10/17 09:52 Feosol - PO 325 mg BID HALIE Administration Fluconazole 200 mg 12/09/17 10:00 12/10/17 09:53 Diflucan - PO 200 mg DAILY HALIE Administration Gabapentin 100 mg 12/08/17 22:00 12/10/17 06:27 Neurontin - PO 100 mg TID HALIE Administration Sodium Chloride 1,000 mls @ 42 mls/hr 12/08/17 19:45 12/09/17 22:11 Normal Saline - IV 42 mls/hr ASDIR HALIE Administration Ertapenem 1 gm/ Sodium 100 mls @ 200 mls/hr 12/09/17 10:00 12/10/17 09:53 Chloride IVPB 200 mls/hr DAILY HALIE Administration Lactobacillus Acidophilus 1 cap 12/08/17 22:00 12/10/17 09:52 Bacid - PO 1 cap BID HALIE Administration Leflunomide 10 mg 12/09/17 10:00 12/10/17 09:54 Arava - PO 10 mg DAILY HALIE Administration Levothyroxine Sodium 112 mcg 12/09/17 07:00 12/10/17 06:27 Synthroid - PO 112 mcg DAILY@0700 HALIE Administration Magnesium Hydroxide 30 ml 12/08/17 19:12 Milk Of Magnesia - PO DAILY PRN PAIN Non-Formulary Medication 1 drop 12/09/17 10:00 Olopatadine Hcl [Patanol] OU DAILY HALIE Pantoprazole Sodium 40 mg 12/09/17 10:00 12/10/17 09:53 Protonix - PO 40 mg DAILY HALIE Administration Rivaroxaban 15 mg 12/09/17 10:00 12/10/17 09:55 Xarelto - PO 15 mg DAILY HALIE Administration Senna 1 tab 12/08/17 22:00 12/09/17 22:10 Senna - PO 1 tab HS HALIE Administration Solifenacin 5 mg 12/09/17 10:00 12/10/17 09:53 Vesicare - PO 5 mg DAILY HALIE Administration ASSESSMENT/PLAN: Patient is a 82 yo F from [facility], with a PMHx of HTN, severe RA, hypothyroidism, recurrent UTI's, dementia, L breast cancer s/p lumpectomy, presented with weakness and AMS and was found to have UTI. #Acute metabolic encephalopathy 2/2 to UTI, ESBL in the past -Urine culture pending--lactose fermenting gram - bacilli -Continue Ertapenem -ID consult -Tylenol PRN for fever -positive U/A #YAIR, likely prerenal 2/2 to decreased oral intake. Improving -cont. IV fluids NS 42ml/hour -urine lytes -avoid nephrotoxins -Renal U/S-- no hydronephrosis -Hold home Kenneth-I #Acute Asthma/COPD exacerbation -Duonebs PRN, standing -O2 therapy -Pulm consulted: Dr. Garcia #Hyponatremia -IV fluids NS @ 42 cc/hr -Continue to monitor #HTN -Cont. Atenolol 50mg -Held Lisinopril due to YAIR #Anemia -Cont. Iron #RA -Continue Lefunomide #Hx of DVT -Cont. Xarelto #Hypothyroidism -Continue Synthroid #Hx of Fungal infections -continue Fluconazole #FEN -IV fluids NS @ 42 cc/hr -replete as needed -Sodium controlled diet with ensure chocolate tid #PPX -Xarelto Med-surg Visit type - Emergency Visit Emergency Visit: Yes ED Registration Date: 12/08/17 Care time: The patient presented to the Emergency Department on the above date and was hospitalized for further evaluation of their emergent condition. - New Patient This patient is new to me today: No - Critical Care Critical Care patient: No <Grey August - Last Filed: 12/10/17 19:41> Physical Exam: Patient is feeling better, family at bedside.
[2017-12-10] MEDS: OLOPATADINE HCL OU SCH (14:23)
--- NOTE | 2017-12-10 15:26 | PN ---
Progress Note, Physician History of Present Illness: `PULMONARY ALERT,NAD,-SOB,COUGH - Current Medication List Current Medications: Active Medications Acetaminophen (Tylenol -) 650 mg PO Q6H PRN PRN Reason: FEVER Last Admin: 12/09/17 18:24 Dose: 650 mg Al Hydroxide/Mg Hydroxide (Mylanta Oral Suspension -) 30 ml PO TID PRN PRN Reason: PAIN Albuterol/Ipratropium (Duoneb -) 1 amp NEB RQID [facility] Last Admin: 12/09/17 21:13 Dose: 1 amp Albuterol/Ipratropium (Duoneb -) 1 amp NEB Q6H PRN PRN Reason: ASTHMA Atenolol (Tenormin -) 50 mg PO DAILY [facility] Last Admin: 12/10/17 09:54 Dose: 50 mg Docusate Sodium (Colace -) 200 mg PO HS [facility] Last Admin: 12/09/17 22:10 Dose: 200 mg Ferrous Sulfate (Feosol -) 325 mg PO BID [facility] Last Admin: 12/10/17 09:52 Dose: 325 mg Fluconazole (Diflucan -) 200 mg PO DAILY [facility] Last Admin: 12/10/17 09:53 Dose: 200 mg Gabapentin (Neurontin -) 100 mg PO TID [facility] Last Admin: 12/10/17 13:45 Dose: 100 mg Sodium Chloride (Normal Saline -) 1,000 mls @ 42 mls/hr IV ASDIR [facility] Last Admin: 12/09/17 22:11 Dose: 42 mls/hr Ertapenem 1 gm/ Sodium (Chloride) 100 mls @ 200 mls/hr IVPB DAILY [facility] Last Admin: 12/10/17 09:53 Dose: 200 mls/hr Lactobacillus Acidophilus (Bacid -) 1 cap PO BID [facility] Last Admin: 12/10/17 09:52 Dose: 1 cap Leflunomide (Arava -) 10 mg PO DAILY [facility] Last Admin: 12/10/17 09:54 Dose: 10 mg Levothyroxine Sodium (Synthroid -) 112 mcg PO DAILY@0700 [facility] Last Admin: 12/10/17 06:27 Dose: 112 mcg Magnesium Hydroxide (Milk Of Magnesia -) 30 ml PO DAILY PRN PRN Reason: PAIN Pantoprazole Sodium (Protonix -) 40 mg PO DAILY [facility] Last Admin: 12/10/17 09:53 Dose: 40 mg Rivaroxaban (Xarelto -) 15 mg PO DAILY [facility] Last Admin: 12/10/17 09:55 Dose: 15 mg Senna (Senna -) 1 tab PO HS [facility] Last Admin: 12/09/17 22:10 Dose: 1 tab Solifenacin (Vesicare -) 5 mg PO DAILY [facility] Last Admin: 12/10/17 09:53 Dose: 5 mg - Objective Vital Signs: Vital Signs Temperature 97.5 F L 12/10/17 14:00 Pulse Rate 66 12/10/17 14:00 Respiratory Rate 18 12/10/17 14:00 Blood Pressure 154/87 12/10/17 14:00 O2 Sat by Pulse Oximetry (%) 95 12/10/17 09:00 Constitutional: Yes: Well Nourished, Calm Eyes: Yes: WNL HENT: Yes: WNL Neck: Yes: WNL Cardiovascular: Yes: Regular Rate and Rhythm, S1, S2 Respiratory: Yes: Rales (BIBASILAR CRACKLES) Gastrointestinal: Yes: Normal Bowel Sounds, Soft Extremities: Yes: WNL Edema: No Labs: CBC, BMP 12/10/17 06:45 12/10/17 06:45 INR, PTT INR 1.12 (0.82-1.09) 12/08/17 16:00 Problem List - Problems (1) ESBL E. coli carrier Code(s): Z22.39 - CARRIER OF OTHER SPECIFIED BACTERIAL DISEASES (2) SIRS (systemic inflammatory response syndrome) Code(s): R65.10 - SIRS OF NON-INFECTIOUS ORIGIN W/O ACUTE ORGAN DYSFUNCTION (3) Altered mental status Code(s): R41.82 - ALTERED MENTAL STATUS, UNSPECIFIED (4) UTI (urinary tract infection) Code(s): N39.0 - URINARY TRACT INFECTION, SITE NOT SPECIFIED Qualifiers: Urinary tract infection type: site unspecified Hematuria presence: without hematuria Qualified Code(s): N39.0 - Urinary tract infection, site not specified (5) YAIR (acute kidney injury) Code(s): N17.9 - ACUTE KIDNEY FAILURE, UNSPECIFIED (6) H/O malignant neoplasm of breast Code(s): Z85.3 - PERSONAL HISTORY OF MALIGNANT NEOPLASM OF BREAST Assessment/Plan IMP ALTERED MENTAL STATUS IMPROVED UTI COUGH YAIR IMPROVING ANEMIA CALCIFIED GRANULOMA LLL DEMENTIA H/O BREAST CA S/P LUMPECTOMY H/O BILATERAL DVTS RA PLAN IVF CONTINUE ABX CULTURES O2 INHALED BRONCHODILATORS PRN MONITOR LYTES,RENAL FUNCTION DR FITZPATRICK Problem List - Problems (1) ESBL E. coli carrier Code(s): Z22.39 - CARRIER OF OTHER SPECIFIED BACTERIAL DISEASES (2) SIRS (systemic inflammatory response syndrome) Code(s): R65.10 - SIRS OF NON-INFECTIOUS ORIGIN W/O ACUTE ORGAN DYSFUNCTION (3) Altered mental status Code(s): R41.82 - ALTERED MENTAL STATUS, UNSPECIFIED (4) UTI (urinary tract infection) Code(s): N39.0 - URINARY TRACT INFECTION, SITE NOT SPECIFIED Qualifiers: Urinary tract infection type: site unspecified Hematuria presence: without hematuria Qualified Code(s): N39.0 - Urinary tract infection, site not specified (5) YAIR (acute kidney injury) Code(s): N17.9 - ACUTE KIDNEY FAILURE, UNSPECIFIED (6) H/O malignant neoplasm of breast Code(s): Z85.3 - PERSONAL HISTORY OF MALIGNANT NEOPLASM OF BREAST
--- NOTE | 2017-12-10 17:13 | PN ---
Progress Note (short form) - Note Progress Note: some cough very alert today Vital Signs Period Temp Pulse Resp BP Sys/Banuelos Pulse Ox Last 24 Hr 97.5 F-98.0 F 64-69 18-20 148-156/74-87 95-96 cor-rrr lungs clear abd soft,nt no suprapubic pain ext no edema CBC, BMP 12/10/17 06:45 12/10/17 06:45 Microbiology 12/08/17 16:00 Blood - Peripheral Venous Blood Culture - Preliminary NO GROWTH OBTAINED AFTER 48 HOURS, INCUBATION TO CONTINUE FOR 3 DAYS. 12/08/17 16:00 Blood - Peripheral Venous Blood Culture - Preliminary NO GROWTH OBTAINED AFTER 48 HOURS, INCUBATION TO CONTINUE FOR 3 DAYS. 12/08/17 16:37 Urine - Urine - Catheterized Urine Culture - Preliminary Lactose Fermenting Neg Bacilli 12/09/17 12:09 Nasopharyngeal Swab Influenza Types A,B Antigen (DANIEL) - Final 12/09/17 12:09 Nasopharyngeal Swab - Final a/p fever uti dehydration improving continue ertapenem day #3 contact isolation- history of ecoli esbl UTI Problem List - Problems (1) Fever Code(s): R50.9 - FEVER, UNSPECIFIED (2) UTI (urinary tract infection) Code(s): N39.0 - URINARY TRACT INFECTION, SITE NOT SPECIFIED Qualifiers: Urinary tract infection type: site unspecified Hematuria presence: without hematuria Qualified Code(s): N39.0 - Urinary tract infection, site not specified (3) YAIR (acute kidney injury) Code(s): N17.9 - ACUTE KIDNEY FAILURE, UNSPECIFIED (4) ESBL E. coli carrier Code(s): Z22.39 - CARRIER OF OTHER SPECIFIED BACTERIAL DISEASES
[2017-12-10] MEDS: DOCUSATE SODIUM 100 MG CAPSULE (FP) PO SCH (22:50)
[2017-12-10] MEDS: SENNOSIDES 8.6MG TABLET (FP) PO SCH (22:50)
[2017-12-10] MEDS: SODIUM CHLORIDE 1,000 ML IV SCH (22:51)
[2017-12-11] MEDS: LEVOTHYROXINE NA 112 MCG TABLET (FP) PO SCH (06:18)
[2017-12-11] MEDS: GABAPENTIN 100 MG CAPSULE (FP) PO SCH ×3 (06:19→21:29)
[2017-12-11] MEDS: ALBUTEROL SO4 2.5/IPRATROPIUM 0.5 INH SOL 3 ML VIAL.NEB. NEB SCH ×4 (07:20→20:00)
[2017-12-11 08:26] LABS: BASO % 0.5 % (0-2.0); EOS % 0.7 % (0-4.5); HEMATOCRIT 28.4 % (32.4-45.2); HEMOGLOBIN 9.3 GM/dL (10.7-15.3); LYMPH % 15.6 % (8-40); MCH 29.2 pg (25.7-33.7); MCHC 32.5 g/dl (32.0-36.0); MEAN CELL VOLUME 89.8 fl (80-96); MEAN PLT VOLUME 9.2 fl (7.5-11.1); NEUT % 72.2 % (42.8-82.8); PLATELET COUNT 182 K/MM3 (134-434); RBC 3.17 M/mm3 (3.60-5.2); RDW 14.3 % (11.6-15.6)
[2017-12-11 08:54] LABS: ANION GAP 8 (8-16); BLOOD UREA NITROGEN 20 mg/dL (7-18); CALCIUM 8.1 mg/dL (8.5-10.1); CHLORIDE 114 mmol/L (98-107); CO2 22 mmol/L (21-32); GLUCOSE,RANDOM 97 mg/dL (74-106); SODIUM 144 mmol/L (136-145)
[2017-12-11 09:00] LABS: POTASSIUM 2.9 mmol/L (3.5-5.1)
--- NOTE | 2017-12-11 09:09 | PN ---
<Bhavin Colorado - Last Filed: 12/11/17 18:24> Physical Exam: SUBJECTIVE: Patient seen and examined. mild dry cough this morning, says she is always wheezing. denies chest pain, shortness of breath, dysuria, abdominal pain. eating well. OBJECTIVE: Vital Signs Period Temp Pulse Resp BP Sys/Banuelos Pulse Ox Last 24 Hr 97.5 F-98.9 F 66-74 18-20 142-154/70-87 96 GENERAL: The patient is awake, alert, and oriented to person, in no acute distress. HEAD: Normal with no signs of trauma. EYES: PERRL, extraocular movements intact, sclera anicteric, conjunctiva clear. ENT: oropharynx clear without exudates, dry mucous membranes. no thrush LUNGS: Breath sounds equal, +mild wheezes, no crackles, no accessory muscle use. HEART: Regular rate and rhythm, S1, S2 without murmur, rub or gallop. ABDOMEN: Soft, nontender, nondistended, normoactive bowel sounds, no guarding, no rebound, no hepatosplenomegaly, no masses. EXTREMITIES: 2+ pulses, warm, well-perfused, NEUROLOGICAL: Normal speech, facial symmetry Laboratory Results - last 24 hr 12/11/17 12/11/17 07:20 07:20 WBC 8.0 RBC 3.17 L Hgb 9.3 L Hct 28.4 L MCV 89.8 MCH 29.2 MCHC 32.5 RDW 14.3 Plt Count 182 MPV 9.2 Neutrophils % 72.2 Lymphocytes % 15.6 Monocytes % 11.0 H Eosinophils % 0.7 D Basophils % 0.5 Sodium 144 Potassium 2.9 L* Chloride 114 H Carbon Dioxide 22 Anion Gap 8 BUN 20 H Creatinine 1.0 Random Glucose 97 Calcium 8.1 L Active Medications Acetaminophen (Tylenol -) 650 mg PO Q6H PRN PRN Reason: FEVER Last Admin: 12/09/17 18:24 Dose: 650 mg Al Hydroxide/Mg Hydroxide (Mylanta Oral Suspension -) 30 ml PO TID PRN PRN Reason: PAIN Albuterol/Ipratropium (Duoneb -) 1 amp NEB RQID HALIE Last Admin: 12/11/17 16:14 Dose: 1 amp Albuterol/Ipratropium (Duoneb -) 1 amp NEB Q6H PRN PRN Reason: ASTHMA Atenolol (Tenormin -) 50 mg PO DAILY [facility] Last Admin: 12/11/17 09:39 Dose: 50 mg Docusate Sodium (Colace -) 200 mg PO HS [facility] Last Admin: 12/10/17 22:50 Dose: 200 mg Ferrous Sulfate (Feosol -) 325 mg PO BID [facility] Last Admin: 12/11/17 09:38 Dose: 325 mg Fluconazole (Diflucan -) 200 mg PO DAILY [facility] Last Admin: 12/11/17 09:38 Dose: 200 mg Gabapentin (Neurontin -) 100 mg PO TID [facility] Last Admin: 12/11/17 14:37 Dose: 100 mg Sodium Chloride (Normal Saline -) 1,000 mls @ 42 mls/hr IV ASDIR [facility] Last Admin: 12/11/17 16:34 Dose: 42 mls/hr Ertapenem 1 gm/ Sodium (Chloride) 100 mls @ 200 mls/hr IVPB DAILY [facility] Last Admin: 12/11/17 09:36 Dose: 200 mls/hr Lactobacillus Acidophilus (Bacid -) 1 cap PO BID [facility] Last Admin: 12/11/17 09:38 Dose: 1 cap Leflunomide (Arava -) 10 mg PO DAILY [facility] Last Admin: 12/11/17 09:39 Dose: 10 mg Levothyroxine Sodium (Synthroid -) 112 mcg PO DAILY@0700 [facility] Last Admin: 12/11/17 06:18 Dose: 112 mcg Magnesium Hydroxide (Milk Of Magnesia -) 30 ml PO DAILY PRN PRN Reason: PAIN Pantoprazole Sodium (Protonix -) 40 mg PO DAILY [facility] Last Admin: 12/11/17 09:38 Dose: 40 mg Potassium Chloride (K-Dur -) 20 meq PO BID [facility] Last Admin: 12/11/17 11:24 Dose: 20 meq Rivaroxaban (Xarelto -) 15 mg PO DAILY [facility] Last Admin: 12/11/17 09:38 Dose: 15 mg Senna (Senna -) 1 tab PO HS [facility] Last Admin: 12/10/17 22:50 Dose: 1 tab Solifenacin (Vesicare -) 5 mg PO DAILY [facility] Last Admin: 12/11/17 09:38 Dose: 5 mg Microbiology 12/08/17 16:00 Blood - Peripheral Venous Blood Culture - Preliminary NO GROWTH OBTAINED AFTER 72 HOURS, INCUBATION TO CONTINUE FOR 2 DAYS. 12/08/17 16:00 Blood - Peripheral Venous Blood Culture - Preliminary NO GROWTH OBTAINED AFTER 72 HOURS, INCUBATION TO CONTINUE FOR 2 DAYS. 12/08/17 16:37 Urine - Urine - Catheterized Urine Culture - Final Escherichia Coli Esbl [employer] 12/09/17 12:09 Nasopharyngeal Swab Influenza Types A,B Antigen (DANIEL) - Final - NEGATIVE ASSESSMENT/PLAN: 82 yo woman from [facility], with HTN, severe RA, hypothyroidism, recurrent UTI's, dementia, L breast cancer s/p lumpectomy, admitted for UTI with resistent organism. #Acute metabolic encephalopathy 2/ to UTI, ESBL in urine culture, improved mentation -Continue Ertapenem 1gm daily -- started 12/09 -- Day 3 -ID consult: Dr. Hyman -Tylenol 650mg po PRN for fever #Hypokalemia - PO Kdur 20meQ BID #YAIR, it improved with IVF -cont. IV fluids NS 42ml/hour -avoid nephrotoxins -Hold home Kenneth-I #Acute Asthma/COPD exacerbation -Duonebs PRN, scheduled due to continued wheezing -O2 therapy prn -Pulm consulted: Dr. Garcia #HTN - Atenolol 50mg qd -Held Lisinopril due to YAIR #Anemia- chronic -Cont. Iron 325mg BID + colace + senna #RA -Lefunomide 10 mg PO DAILY #Hx of DVT -Xarelto 15mg po daily #Hypothyroidism -Continue Synthroid 112mcg qdaily #Hx of Fungal infections, prophylaxis with daily Fluconazole #FEN -IV fluids NS @ 42 cc/hr -replete as needed #dvt PPX -Xarelto Physical therapy for deconditioning continue home medications: protonix daily, milk of mg, vesicare, neurontin, bacid Dispo: d/c when course of abx confirmed Visit type - Emergency Visit Emergency Visit: No - New Patient This patient is new to me today: Yes Date on this admission: 12/11/17 - Critical Care Critical Care patient: No - Discharge Referral Referred to [facility] Med [facility] No <Grey August - Last Filed: 12/11/17 20:24> Physical Exam: Patient has no new complains. No fever or chills, no shortness of breath. Vital Signs Temperature 99.6 F 12/11/17 16:41 Pulse Rate 72 12/11/17 14:59 Respiratory Rate 20 12/11/17 14:59 Blood Pressure 140/76 12/11/17 14:59 O2 Sat by Pulse Oximetry (%) 96 12/11/17 09:00 CBCD WBC 8.0 K/mm3 (4.0-10.0) 12/11/17 07:20 RBC 3.17 M/mm3 (3.60-5.2) L 12/11/17 07:20 Hgb 9.3 GM/dL (10.7-15.3) L 12/11/17 07:20 Hct 28.4 % (32.4-45.2) L 12/11/17 07:20 MCV 89.8 fl (80-96) 12/11/17 07:20 MCHC 32.5 g/dl (32.0-36.0) 12/11/17 07:20 RDW 14.3 % (11.6-15.6) 12/11/17 07:20 Plt Count 182 K/MM3 (134-434) 12/11/17 07:20 MPV 9.2 fl (7.5-11.1) 12/11/17 07:20 CMP Sodium 144 mmol/L (136-145) 12/11/17 07:20 Potassium 2.9 mmol/L (3.5-5.1) L* 12/11/17 07:20 Chloride 114 mmol/L (98-107) H 12/11/17 07:20 Carbon Dioxide 22 mmol/L (21-32) 12/11/17 07:20 Anion Gap 8 (8-16) 12/11/17 07:20 BUN 20 mg/dL (7-18) H 12/11/17 07:20 Creatinine 1.0 mg/dL (0.55-1.02) 12/11/17 07:20 Creat Clearance w eGFR 33.25 (>60) 12/09/17 07:00 Random Glucose 97 mg/dL (74-106) 12/11/17 07:20 Calcium 8.1 mg/dL (8.5-10.1) L 12/11/17 07:20 Total Bilirubin 0.3 mg/dL (0.2-1.0) D 12/09/17 07:00 AST 52 U/L (15-37) H 12/09/17 07:00 ALT 37 U/L (12-78) 12/09/17 07:00 Alkaline Phosphatase 126 U/L (45-117) H 12/09/17 07:00 Total Protein 6.9 g/dl (6.4-8.2) 12/09/17 07:00 Albumin 3.0 g/dl (3.4-5.0) L 12/09/17 07:00 CARDIAC ENZYMES Troponin I < 0.02 ng/ml (0.00-0.05) 12/08/17 16:00 Current Medications Generic Name Dose Route Start Last Admin Trade Name Freq PRN Reason Stop Dose Admin Acetaminophen 650 mg 12/08/17 20:00 12/09/17 18:24 Tylenol - PO 650 mg Q6H PRN Administration FEVER Al Hydroxide/Mg Hydroxide 30 ml 12/08/17 19:12 Mylanta Oral Suspension - PO TID PRN PAIN Albuterol/Ipratropium 1 amp 12/08/17 20:00 12/11/17 16:14 Duoneb - NEB 1 amp RQID HALIE Administration Albuterol/Ipratropium 1 amp 12/08/17 20:20 Duoneb - NEB Q6H PRN ASTHMA Atenolol 50 mg 12/09/17 10:00 12/11/17 09:39 Tenormin - PO 50 mg DAILY [facility]IE Administration Docusate Sodium 200 mg 12/08/17 22:00 12/10/17 22:50 Colace - PO 200 mg HS [facility]IE Administration Ferrous Sulfate 325 mg 12/08/17 22:00 12/11/17 09:38 Feosol - PO 325 mg BID HALIE Administration Fluconazole 200 mg 12/09/17 10:00 12/11/17 09:38 Diflucan - PO 200 mg DAILY [facility] Administration Gabapentin 100 mg 12/08/17 22:00 12/11/17 14:37 Neurontin - PO 100 mg TID HALIE Administration Sodium Chloride 1,000 mls @ 42 mls/hr 12/08/17 19:45 12/11/17 16:34 Normal Saline - IV 42 mls/hr ASDIR HALIE Administration Ertapenem 1 gm/ Sodium 100 mls @ 200 mls/hr 12/09/17 10:00 12/11/17 09:36 Chloride IVPB 200 mls/hr DAILY [facility] Administration Lactobacillus Acidophilus 1 cap 12/08/17 22:00 12/11/17 09:38 Bacid - PO 1 cap BID [facility]IE Administration Leflunomide 10 mg 12/09/17 10:00 12/11/17 09:39 Arava - PO 10 mg DAILY [facility] Administration Levothyroxine Sodium 112 mcg 12/09/17 07:00 12/11/17 06:18 Synthroid - PO 112 mcg DAILY@0700 [facility] Administration Magnesium Hydroxide 30 ml 12/08/17 19:12 Milk Of Magnesia - PO DAILY PRN PAIN Pantoprazole Sodium 40 mg 12/09/17 10:00 12/11/17 09:38 Protonix - PO 40 mg DAILY [facility] Administration Potassium Chloride 20 meq 12/11/17 10:30 12/11/17 11:24 K-Dur - PO 20 meq BID [facility] Administration Rivaroxaban 15 mg 12/09/17 10:00 12/11/17 09:38 Xarelto - PO 15 mg DAILY [facility] Administration Senna 1 tab 12/08/17 22:00 12/10/17 22:50 Senna - PO 1 tab HS [facility] Administration Solifenacin 5 mg 12/09/17 10:00 12/11/17 09:38 Vesicare - PO 5 mg DAILY [facility] Administration Home Medications Medication Instructions Recorded Acetaminophen 650 mg PO PRN 12/08/17 Acidoph/L.bulg/Bif.b/S.thermop 1 each PO BID 12/08/17 [Leonela-Bid Caplet] Atenolol [Tenormin -] 50 mg PO DAILY 12/08/17 Docusate Sodium 200 mg PO HS 12/08/17 Duloxetine HCl [Cymbalta] 60 mg PO DAILY 12/08/17 Ferrous Sulfate 325 mg PO BID 12/08/17 Fluconazole 200 mg PO DAILY 12/08/17 Gabapentin [Neurontin] 100 mg PO TID 12/08/17 Lansoprazole [Prevacid] 30 mg PO DAILY 12/08/17 Leflunomide [Arava -] 10 mg PO DAILY 12/08/17 Levothyroxine [Synthroid -] 112 mcg PO DAILY 12/08/17 Lisinopril [Prinivil] 10 mg PO DAILY 12/08/17 Loratadine [Claritin] 10 mg PO DAILY 12/08/17 Mag Hydrox/Aluminum Hyd/Simeth 30 ml PO TID PRN 12/08/17 [Maalox Advanced Suspension] Magnesium Hydroxide [Milk of 30 ml PO DAILY PRN 12/08/17 Magnesia] Melatonin 3 mg PO HS 12/08/17 Mirtazapine 22.5 mg PO DAILY 12/08/17 Olopatadine HCl [Patanol] 1 drop OU DAILY 12/08/17 Oxybutynin Chloride [Oxybutynin 5 mg PO DAILY 12/08/17 Chloride ER] Rivaroxaban [Xarelto -] 15 mg PO DAILY 12/08/17 Sennosides [Senna] 1 tab PO HS 12/08/17 Will get Gardenia singh to evaluate her swallowing.
[2017-12-11] MEDS ORDERED: PT OWN MED DRAWER 7, Y5N ONE (09:32)
[2017-12-11] MEDS: ERTAPENEM SODIUM 1 GM in SODIUM CHLORIDE 100 ML IVPB SCH (09:36)
[2017-12-11] MEDS: FERROUS SO4 325 MG TABLET (FP) PO SCH ×2 (09:38→21:29)
[2017-12-11] MEDS: PANTOPRAZOLE 40 MG TABLET (FP) PO SCH (09:38)
[2017-12-11] MEDS: LACTOBACILLUS ACIDOPHILUS 1 TABLET PO SCH ×2 (09:38→21:28)
[2017-12-11] MEDS: SOLIFENACIN SUCCINATE 5 MG TAB (FP) PO SCH (09:38)
[2017-12-11] MEDS: FLUCONAZOLE 100 MG TABLET (UD) PO SCH (09:38)
[2017-12-11] MEDS: RIVAROXABAN 15 MG TABLET PO SCH (09:38)
[2017-12-11] MEDS: LEFLUNOMIDE 10 MG TABLET PO SCH (09:39)
[2017-12-11] MEDS: ATENOLOL 50 MG TABLET (FP) PO SCH (09:39)
[2017-12-11] MEDS: POTASSIUM CHLORIDE TABS 20 MEQ TABLET.ER (FP) PO SCH ×2 (11:24→21:29)
--- NOTE | 2017-12-11 12:53 | PN ---
Progress Note (short form) - Note Progress Note: Alert, in NAD on RA. No CP or SOB. No acute events overnight. Intake & Output 12/08/17 12/09/17 12/10/17 12/11/17 23:59 23:59 23:59 23:59 Intake Total 1266 468 294 Balance 1266 468 294 Weight 147 lb 142 lb 6.4 oz 142 lb 2 oz 139 lb 9 oz Last Vital Signs Temp Pulse Resp BP Pulse Ox 99.3 F 74 20 142/73 96 12/11/17 09:28 12/11/17 08:43 12/11/17 08:43 12/11/17 08:43 12/10/17 20:10 Active Medications Acetaminophen (Tylenol -) 650 mg PO Q6H PRN PRN Reason: FEVER Last Admin: 12/09/17 18:24 Dose: 650 mg Al Hydroxide/Mg Hydroxide (Mylanta Oral Suspension -) 30 ml PO TID PRN PRN Reason: PAIN Albuterol/Ipratropium (Duoneb -) 1 amp NEB RQID [facility] Last Admin: 12/11/17 11:25 Dose: 1 amp Albuterol/Ipratropium (Duoneb -) 1 amp NEB Q6H PRN PRN Reason: ASTHMA Atenolol (Tenormin -) 50 mg PO DAILY [facility] Last Admin: 12/11/17 09:39 Dose: 50 mg Docusate Sodium (Colace -) 200 mg PO HS [facility] Last Admin: 12/10/17 22:50 Dose: 200 mg Ferrous Sulfate (Feosol -) 325 mg PO BID [facility] Last Admin: 12/11/17 09:38 Dose: 325 mg Fluconazole (Diflucan -) 200 mg PO DAILY [facility] Last Admin: 12/11/17 09:38 Dose: 200 mg Gabapentin (Neurontin -) 100 mg PO TID [facility] Last Admin: 12/11/17 06:19 Dose: 100 mg Sodium Chloride (Normal Saline -) 1,000 mls @ 42 mls/hr IV ASDIR [facility] Last Admin: 12/10/17 22:51 Dose: Not Given Ertapenem 1 gm/ Sodium (Chloride) 100 mls @ 200 mls/hr IVPB DAILY [facility] Last Admin: 12/11/17 09:36 Dose: 200 mls/hr Lactobacillus Acidophilus (Bacid -) 1 cap PO BID [facility] Last Admin: 04/12/18 09:38 Dose: 1 cap Leflunomide (Arava -) 10 mg PO DAILY [facility] Last Admin: 12/11/17 09:39 Dose: 10 mg Levothyroxine Sodium (Synthroid -) 112 mcg PO DAILY@0700 [facility] Last Admin: 12/11/17 06:18 Dose: 112 mcg Magnesium Hydroxide (Milk Of Magnesia -) 30 ml PO DAILY PRN PRN Reason: PAIN Pantoprazole Sodium (Protonix -) 40 mg PO DAILY [facility] Last Admin: 12/11/17 09:38 Dose: 40 mg Potassium Chloride (K-Dur -) 20 meq PO BID [facility] Last Admin: 12/11/17 11:24 Dose: 20 meq Rivaroxaban (Xarelto -) 15 mg PO DAILY [facility] Last Admin: 12/11/17 09:38 Dose: 15 mg Senna (Senna -) 1 tab PO HS [facility] Last Admin: 12/10/17 22:50 Dose: 1 tab Solifenacin (Vesicare -) 5 mg PO DAILY [facility] Last Admin: 12/11/17 09:38 Dose: 5 mg Constitutional: Yes: NAD Eyes: Yes: WNL HENT: Yes: WNL Neck: Yes: WNL Cardiovascular: Yes: Regular Rate and Rhythm, S1, S2 Respiratory: Yes: Bibasilar rhonchi, no wheeze Gastrointestinal: Yes: Normal Bowel Sounds, Soft Extremities: Yes: WNL Edema: No Labs: Laboratory Results - last 24 hr 12/11/17 12/11/17 07:20 07:20 WBC 8.0 RBC 3.17 L Hgb 9.3 L Hct 28.4 L MCV 89.8 MCH 29.2 MCHC 32.5 RDW 14.3 Plt Count 182 MPV 9.2 Neutrophils % 72.2 Lymphocytes % 15.6 Monocytes % 11.0 H Eosinophils % 0.7 D Basophils % 0.5 Sodium 144 Potassium 2.9 L* Chloride 114 H Carbon Dioxide 22 Anion Gap 8 BUN 20 H Creatinine 1.0 Random Glucose 97 Calcium 8.1 L Problem List - Problems (1) ESBL E. coli carrier Code(s): Z22.39 - CARRIER OF OTHER SPECIFIED BACTERIAL DISEASES (2) SIRS (systemic inflammatory response syndrome) Code(s): R65.10 - SIRS OF NON-INFECTIOUS ORIGIN W/O ACUTE ORGAN DYSFUNCTION (3) Altered mental status Code(s): R41.82 - ALTERED MENTAL STATUS, UNSPECIFIED (4) UTI (urinary tract infection) Code(s): N39.0 - URINARY TRACT INFECTION, SITE NOT SPECIFIED Qualifiers: Urinary tract infection type: site unspecified Hematuria presence: without hematuria Qualified Code(s): N39.0 - Urinary tract infection, site not specified (5) YAIR (acute kidney injury) Code(s): N17.9 - ACUTE KIDNEY FAILURE, UNSPECIFIED (6) H/O malignant neoplasm of breast Code(s): Z85.3 - PERSONAL HISTORY OF MALIGNANT NEOPLASM OF BREAST Assessment/Plan IMP ALTERED MENTAL STATUS IMPROVED UTI COUGH YAIR IMPROVING ANEMIA CALCIFIED GRANULOMA LLL DEMENTIA H/O BREAST CA S/P LUMPECTOMY H/O BILATERAL DVTS RA PLAN ABX PER ID O2 ONLY IF NEEDED ASPIRATION PRECAUTIONS BD TX PRN DR CHURCH
--- NOTE | 2017-12-11 15:20 | PN ---
Progress Note, Physician History of Present Illness: Awake, alert Seated in bed No complaints Denies dysuria No suprapubic or flank pain - Current Medication List Current Medications: Active Medications Acetaminophen (Tylenol -) 650 mg PO Q6H PRN PRN Reason: FEVER Last Admin: 12/09/17 18:24 Dose: 650 mg Al Hydroxide/Mg Hydroxide (Mylanta Oral Suspension -) 30 ml PO TID PRN PRN Reason: PAIN Albuterol/Ipratropium (Duoneb -) 1 amp NEB RQID [facility] Last Admin: 12/11/17 11:25 Dose: 1 amp Albuterol/Ipratropium (Duoneb -) 1 amp NEB Q6H PRN PRN Reason: ASTHMA Atenolol (Tenormin -) 50 mg PO DAILY [facility] Last Admin: 12/11/17 09:39 Dose: 50 mg Docusate Sodium (Colace -) 200 mg PO HS [facility] Last Admin: 12/10/17 22:50 Dose: 200 mg Ferrous Sulfate (Feosol -) 325 mg PO BID [facility] Last Admin: 12/11/17 09:38 Dose: 325 mg Fluconazole (Diflucan -) 200 mg PO DAILY [facility] Last Admin: 12/11/17 09:38 Dose: 200 mg Gabapentin (Neurontin -) 100 mg PO TID [facility] Last Admin: 12/11/17 14:37 Dose: 100 mg Sodium Chloride (Normal Saline -) 1,000 mls @ 42 mls/hr IV ASDIR [facility] Last Admin: 12/10/17 22:51 Dose: Not Given Ertapenem 1 gm/ Sodium (Chloride) 100 mls @ 200 mls/hr IVPB DAILY [facility] Last Admin: 12/11/17 09:36 Dose: 200 mls/hr Lactobacillus Acidophilus (Bacid -) 1 cap PO BID [facility] Last Admin: 12/11/17 09:38 Dose: 1 cap Leflunomide (Arava -) 10 mg PO DAILY [facility] Last Admin: 12/11/17 09:39 Dose: 10 mg Levothyroxine Sodium (Synthroid -) 112 mcg PO DAILY@0700 [facility] Last Admin: 12/11/17 06:18 Dose: 112 mcg Magnesium Hydroxide (Milk Of Magnesia -) 30 ml PO DAILY PRN PRN Reason: PAIN Pantoprazole Sodium (Protonix -) 40 mg PO DAILY [facility] Last Admin: 12/11/17 09:38 Dose: 40 mg Potassium Chloride (K-Dur -) 20 meq PO BID [facility] Last Admin: 12/11/17 11:24 Dose: 20 meq Rivaroxaban (Xarelto -) 15 mg PO DAILY [facility] Last Admin: 12/11/17 09:38 Dose: 15 mg Senna (Senna -) 1 tab PO HS [facility] Last Admin: 12/10/17 22:50 Dose: 1 tab Solifenacin (Vesicare -) 5 mg PO DAILY [facility] Last Admin: 12/11/17 09:38 Dose: 5 mg - Objective Vital Signs: Vital Signs Temperature 97.4 F L 12/11/17 14:59 Pulse Rate 72 12/11/17 14:59 Respiratory Rate 20 12/11/17 14:59 Blood Pressure 140/76 12/11/17 14:59 O2 Sat by Pulse Oximetry (%) 96 12/10/17 20:10 Constitutional: Yes: No Distress Eyes: Yes: Conjunctiva Clear Cardiovascular: Yes: Regular Rate and Rhythm, S1, S2 Respiratory: Yes: CTA Bilaterally Gastrointestinal: Yes: Normal Bowel Sounds, Soft. No: Tenderness Labs: CBC, BMP 12/11/17 07:20 12/11/17 07:20 INR, PTT INR 1.12 (0.82-1.09) 12/08/17 16:00 Assessment/Plan ESBL UTI Leukocytosis- improved Azotemia-improved Continue ertapenem
[2017-12-11] MEDS: SODIUM CHLORIDE 1,000 ML IV SCH ×2 (16:34→21:29)
[2017-12-11] MEDS: SENNOSIDES 8.6MG TABLET (FP) PO SCH (21:29)
[2017-12-11] MEDS: DOCUSATE SODIUM 100 MG CAPSULE (FP) PO SCH (21:29)
[2017-12-12] MEDS: LEVOTHYROXINE NA 112 MCG TABLET (FP) PO SCH (06:18)
[2017-12-12] MEDS: GABAPENTIN 100 MG CAPSULE (FP) PO SCH ×3 (06:19→21:48)
[2017-12-12] MEDS: ALBUTEROL SO4 2.5/IPRATROPIUM 0.5 INH SOL 3 ML VIAL.NEB. NEB SCH ×4 (07:40→20:00)
[2017-12-12 08:54] LABS: ANION GAP 10 (8-16); BLOOD UREA NITROGEN 15 mg/dL (7-18); CALCIUM 8.1 mg/dL (8.5-10.1); CHLORIDE 114 mmol/L (98-107); CO2 22 mmol/L (21-32); GLUCOSE,RANDOM 107 mg/dL (74-106); POTASSIUM 3.4 mmol/L (3.5-5.1); SODIUM 146 mmol/L (136-145)
[2017-12-12] MEDS: SOLIFENACIN SUCCINATE 5 MG TAB (FP) PO SCH (10:00)
[2017-12-12] MEDS: LEFLUNOMIDE 10 MG TABLET PO SCH (10:00)
[2017-12-12] MEDS: FERROUS SO4 325 MG TABLET (FP) PO SCH ×2 (10:00→21:48)
[2017-12-12] MEDS: ATENOLOL 50 MG TABLET (FP) PO SCH (10:00)
[2017-12-12] MEDS: ERTAPENEM SODIUM 1 GM in SODIUM CHLORIDE 100 ML IVPB SCH (10:00)
[2017-12-12] MEDS: RIVAROXABAN 15 MG TABLET PO SCH (10:00)
[2017-12-12] MEDS: POTASSIUM CHLORIDE TABS 20 MEQ TABLET.ER (FP) PO SCH ×2 (10:00→21:48)
[2017-12-12] MEDS: LACTOBACILLUS ACIDOPHILUS 1 TABLET PO SCH ×2 (10:00→21:48)
[2017-12-12] MEDS: FLUCONAZOLE 100 MG TABLET (UD) PO SCH (10:00)
[2017-12-12] MEDS: PANTOPRAZOLE 40 MG TABLET (FP) PO SCH (10:00)
--- NOTE | 2017-12-12 11:21 | PN ---
<Nolberto Kebede - Last Filed: 12/12/17 13:39> Physical Exam: SUBJECTIVE: Patient seen and examined No acute events overnight. States she has chronic wheezing. Denies fever, chills , dysuria, urinary urgency, urinary frequency. OBJECTIVE: Vital Signs Period Temp Pulse Resp BP Sys/Banuelos Pulse Ox Last 24 Hr 97.4 F-99.6 F 72-78 18-20 140-157/63-78 96 GENERAL: The patient is awake, alert, and oriented, in no acute distress. HEAD: Normal with no signs of trauma. EYES: PERRL, extraocular movements intact, sclera anicteric, conjunctiva clear. ENT: oropharynx clear without exudates, dry mucous membranes. no thrush. LUNGS: Breath sounds equal, +scattered wheezing, no crackles, no accessory muscle use. HEART: Regular rate and rhythm, S1, S2 without murmur, rub or gallop. ABDOMEN: Soft, nontender, nondistended, normoactive bowel sounds, no guarding, no rebound, no hepatosplenomegaly, no masses. EXTREMITIES: 2+ pulses, warm, well-perfused, NEUROLOGICAL: Normal speech, facial symmetry Laboratory Results - last 24 hr 12/12/17 07:05 Sodium 146 H Potassium 3.4 L Chloride 114 H Carbon Dioxide 22 Anion Gap 10 BUN 15 Creatinine 1.0 Random Glucose 107 H Calcium 8.1 L Active Medications Generic Name Dose Route Start Last Admin Trade Name Freq PRN Reason Stop Dose Admin Acetaminophen 650 mg 12/08/17 20:00 12/09/17 18:24 Tylenol - PO 650 mg Q6H PRN Administration FEVER Al Hydroxide/Mg Hydroxide 30 ml 12/08/17 19:12 Mylanta Oral Suspension - PO TID PRN PAIN Albuterol/Ipratropium 1 amp 12/08/17 20:00 12/12/17 07:40 Duoneb - NEB 1 amp RQID [facility] Administration Albuterol/Ipratropium 1 amp 12/08/17 20:20 Duoneb - NEB Q6H PRN ASTHMA Atenolol 50 mg 12/09/17 10:00 12/11/17 09:39 Tenormin - PO 50 mg DAILY [facility] Administration Docusate Sodium 200 mg 12/08/17 22:00 12/11/17 21:29 Colace - PO 200 mg HS [facility] Administration Ferrous Sulfate 325 mg 12/08/17 22:00 12/11/17 21:29 Feosol - PO 325 mg BID [facility] Administration Fluconazole 200 mg 12/09/17 10:00 12/11/17 09:38 Diflucan - PO 200 mg DAILY [facility] Administration Gabapentin 100 mg 12/08/17 22:00 12/12/17 06:19 Neurontin - PO 100 mg TID [facility] Administration Sodium Chloride 1,000 mls @ 42 mls/hr 12/08/17 19:45 12/11/17 21:29 Normal Saline - IV Not Given ASDIR [facility] Ertapenem 1 gm/ Sodium 100 mls @ 200 mls/hr 12/09/17 10:00 12/11/17 09:36 Chloride IVPB 200 mls/hr DAILY [facility] Administration Lactobacillus Acidophilus 1 cap 12/08/17 22:00 12/11/17 21:28 Bacid - PO 1 cap BID [facility] Administration Leflunomide 10 mg 12/09/17 10:00 12/11/17 09:39 Arava - PO 10 mg DAILY [facility] Administration Levothyroxine Sodium 112 mcg 12/09/17 07:00 12/12/17 06:18 Synthroid - PO 112 mcg DAILY@0700 [facility] Administration Magnesium Hydroxide 30 ml 12/08/17 19:12 Milk Of Magnesia - PO DAILY PRN PAIN Pantoprazole Sodium 40 mg 12/09/17 10:00 12/11/17 09:38 Protonix - PO 40 mg DAILY [facility] Administration Potassium Chloride 20 meq 12/11/17 10:30 12/11/17 21:29 K-Dur - PO 20 meq BID [facility] Administration Rivaroxaban 15 mg 12/09/17 10:00 12/11/17 09:38 Xarelto - PO 15 mg DAILY [facility] Administration Senna 1 tab 12/08/17 22:00 12/11/17 21:29 Senna - PO 1 tab HS [facility] Administration Solifenacin 5 mg 12/09/17 10:00 12/11/17 09:38 Vesicare - PO 5 mg DAILY [facility] Administration ASSESSMENT/PLAN: 82 yo woman from [facility], with HTN, severe RA, hypothyroidism, recurrent UTI's, dementia, L breast cancer s/p lumpectomy, admitted for UTI with resistant organism. #Acute metabolic encephalopathy 2/2 to UTI, ESBL in urine culture, improved mentation -Continue Ertapenem 1gm daily -- started 12/09 -- Day 4, Will need 7 day course-- no PO alternate -ID consult: Dr. Hyman -Tylenol 650mg po PRN for fever #Hypokalemia - IV potassium phos given #YAIR, improved with IVF -cont. IV fluids NS 42ml/hour -avoid nephrotoxins -Hold home Kenneth-I -Monitor urine output, creatinine #Acute Asthma/COPD exacerbation -Duonebs PRN, scheduled due to continued wheezing -O2 therapy prn -Pulm consulted: Dr. Garcia #HTN - Atenolol 50mg qd - Held Lisinopril due to YAIR #Anemia- chronic -Cont. Iron 325mg BID + colace + senna #RA -Lefunomide 10 mg PO DAILY #Hx of DVT -Xarelto 15mg po daily #Hypothyroidism -Continue Synthroid 112mcg qdaily #Hx of Fungal infections, prophylaxis with daily Fluconazole #FEN -IV fluids NS @ 42 cc/hr -replete as needed -Sodium controlled diet, pending speech/swallow evaluation #dvt PPX -Xarelto Physical therapy for deconditioning Dispo: Complete IV abx Visit type - Emergency Visit Emergency Visit: Yes ED Registration Date: 12/08/17 Care time: The patient presented to the Emergency Department on the above date and was hospitalized for further evaluation of their emergent condition. - New Patient This patient is new to me today: No - Critical Care Critical Care patient: No <Grey August - Last Filed: 12/12/17 17:27> Physical Exam: Acute UTI continue Ertapenem as per ID, patient is evaluated by Gardenia Tovar. will follow her recommendations. 3 more days of IV antibiotic till Friday12/15/2017 and can be discharged afterward if stable.
--- NOTE | 2017-12-12 11:41 | CONSULT ---
Admitting History and Physical - Primary Care Physician PCP: Grey August - Admission History of Present Illness: Per EMR: HISTORY OF PRESENT ILLNESS: Patient is a 82 yo F from [facility], with a PMHx of HTN, severe RA, hypothyroidism, B/L DVT's, recurrent UTI's, dementia, L breast cancer s/p lumpectomy, presented with weakness and AMS since . History was taking from daughter at bedside. Daughter says patient also had 101 Temp at long-term with nausea and vomiting. She also has had poor oral intake over the last week. Patient also complained of worsening dry cough this past week. Daughter states U/A at DC revealed UTI. Patient was also admitted for UTI with ESBL 2 years ago. Patient denies chest pain, SOB, dizziness, headache, abdominal pain, dysuria, hematuria, diarrhea. DX:YAIR. UTI. AMS. Fever of 100.7 on admit. Generalized weakness, fatigue/ lethargy, and poor appetite x5 days. A/c metabolic encephalopathy. Hyponatremia. Exacerbated COPD. CXR>LLL nodule. PMHX:HTN, COPD, RA, anemia, hypothyroid, UTI, dementia, gerd, breast CA, back sx /bedbound, recurrent UTI's/E.Coli carrier, fungal infections, Palliative care in NH Pt was on a reg diet/thin liquids.Per family, pt did not eat well in DC. This is my first consult with this pt. 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 No: Renal Failure, Renal Inusuff, BPH, Cancer, Hematuria, Hemodialysis, Neurogenic Bladder, Renal Calculi, Other Heme/Onc: Yes: Cancer (breast cancer) Rheumatology: Yes: Rheumatoid Arthritis. 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 History of Recent Travel: No History - Admission Reason For Visit: ACUTE KIDNEY INJ/UTI - Diagnostics X-ray: Report Reviewed - General Mental Status: Awake and Alert, Able to Follow Commands, Forgetful, Vague, Flat Affect Attention: Intact Ability to Follow Directions: Fair Head/Neck Control: Fair - Hearing Hearing: Normal Speech Evaluation - Communication Primary Language: BULGARIAN Communication: Yes: Within Normal Limits, Simple Responses Oral Expression Ability: Yes: No Impairment - Speech Production Able to Make Needs Known: Yes: WNL Intelligibility: Yes: WNL - Speech Characteristics Voice Loudness: Mildly Soft/Quiet Voice Pitch: Yes: Normal Voice Phonatory-based Quality: Yes: Normal Speech Pattern: Normal Speech Clarity: < 100% Nasal Resonance: Normal Articulation: Yes: Precise - Language/Verbal Expression Able to Respond to Simple Queries: Yes: WNL Able to Communicate Wants and Needs: Yes: WNL Functional Communication Status: Yes: WNL - Swallow Evaluation/Bedside Assessment Current Nutritional Intake: Regular, Thin Liquids, Other (ensure) Oral Secretions: Yes: Dryness Dentition: Yes: Adequate Facial Symmetry at Rest: Symmetrical Facial Symmetry on Retraction: Symmetrical Facial Movement: Controlled Sensation: Normal Against Resistance Opening: Normal Against Resistance Closing: Normal Pucker Lips: Normal Smile: Normal Lingual Movement: Normal, Symmetric Lingual Speed of Movement: Normal Lingual Movement Strgth Against Opposition: Normal Lingual Movement Characteristics: Normal Velopharyngeal Movement: Normal Laryngeal Elevation: WFL Laryngeal Movement: Able to Palpate Bolus Size: WFL Labial Seal: WFL Chewing: WFL Oral Prep Time: WFL A-P Transit: WFL Pocketing: None Timing of Swallow: WFL Coughing/Throat Clear: No Change in Voice: No Recommendations - Speech Evaluation, Impression/Plan Impression: Oral dryness. Mainly drinking supplements over ice, without overt difficulty. Able to hold, chew and swallow cracker. Flat affect.r/o Depression? o x age, place, trump, not time. - Dysphagia Impressions/Plan Dysphagia Impressions: Mild Impairment *Silent aspiration: cannot be R/O at bedside Dysphagia Treatment Plan: Other (Consider biotene produced/artificial saliva spray before meals) - Recommendations Diet Consistency: Regular (Soft easy to chew foods with romero. Eg pasta, finger foods-crustless sandwiches (egg,tuna), muffins,chicken nuggets. Assist with meals.) Liquids: Thin Liquids Supplement: Ensure (b/n meals)
[2017-12-12] MEDS ORDERED: POTASSIUM CHLORIDE 20 MEQ in SODIUM CHLORIDE 250 ML IVPB ONE (12:00)
--- NOTE | 2017-12-12 12:56 | PN ---
Progress Note (short form) - Note Progress Note: doing well alert Vital Signs Period Temp Pulse Resp BP Sys/Banuelos Pulse Ox Last 24 Hr 97.4 F-99.6 F 72-78 18-20 140-157/63-78 96 cor-rrr llungs clear abd soft,nt ext no edema CBC, BMP 12/11/17 07:20 12/12/17 07:05 Microbiology 12/08/17 16:00 Blood - Peripheral Venous Blood Culture - Preliminary NO GROWTH OBTAINED AFTER 72 HOURS, INCUBATION TO CONTINUE FOR 2 DAYS. 12/08/17 16:00 Blood - Peripheral Venous Blood Culture - Preliminary NO GROWTH OBTAINED AFTER 72 HOURS, INCUBATION TO CONTINUE FOR 2 DAYS. 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 12/09/17 12:09 Nasopharyngeal Swab Influenza Types A,B Antigen (DANIEL) - Final 12/09/17 12:09 Nasopharyngeal Swab - Final a/p fever uti-ecoli esbl dehydration improving continue ertapenem day #4 would complete 7 days total-no po options please call back if needed contact isolation- history of ecoli esbl UTI Problem List - Problems (1) Fever Code(s): R50.9 - FEVER, UNSPECIFIED (2) UTI (urinary tract infection) Code(s): N39.0 - URINARY TRACT INFECTION, SITE NOT SPECIFIED Qualifiers: Urinary tract infection type: site unspecified Hematuria presence: without hematuria Qualified Code(s): N39.0 - Urinary tract infection, site not specified (3) YAIR (acute kidney injury) Code(s): N17.9 - ACUTE KIDNEY FAILURE, UNSPECIFIED (4) ESBL E. coli carrier Code(s): Z22.39 - CARRIER OF OTHER SPECIFIED BACTERIAL DISEASES
[2017-12-12] MEDS ORDERED: PT OWN MED DRAWER 7, Y5N ONE (17:16)
[2017-12-12] MEDS: ACETAMINOPHEN 325 MG TABLET (FP) PO PRN (18:40)
[2017-12-12] MEDS: DOCUSATE SODIUM 100 MG CAPSULE (FP) PO SCH (21:48)
[2017-12-12] MEDS: SENNOSIDES 8.6MG TABLET (FP) PO SCH (21:48)
[2017-12-12] MEDS: SODIUM CHLORIDE 1,000 ML IV SCH (21:49)
[2017-12-13] MEDS: GABAPENTIN 100 MG CAPSULE (FP) PO SCH ×3 (06:07→21:49)
[2017-12-13] MEDS: LEVOTHYROXINE NA 112 MCG TABLET (FP) PO SCH (06:07)
[2017-12-13] MEDS: ALBUTEROL SO4 2.5/IPRATROPIUM 0.5 INH SOL 3 ML VIAL.NEB. NEB SCH ×3 (07:40→16:35)
[2017-12-13 09:15] LABS: ANION GAP 8 (8-16); BLOOD UREA NITROGEN 15 mg/dL (7-18); CALCIUM 7.8 mg/dL (8.5-10.1); CHLORIDE 114 mmol/L (98-107); CO2 22 mmol/L (21-32); CREATININE 0.9 mg/dL (0.55-1.02); GLUCOSE,RANDOM 107 mg/dL (74-106); POTASSIUM 3.8 mmol/L (3.5-5.1); SODIUM 144 mmol/L (136-145)
[2017-12-13] MEDS: SOLIFENACIN SUCCINATE 5 MG TAB (FP) PO SCH (10:04)
[2017-12-13] MEDS: FLUCONAZOLE 100 MG TABLET (UD) PO SCH (10:04)
[2017-12-13] MEDS: ATENOLOL 50 MG TABLET (FP) PO SCH (10:05)
[2017-12-13] MEDS: LACTOBACILLUS ACIDOPHILUS 1 TABLET PO SCH ×2 (10:05→21:49)
[2017-12-13] MEDS: PANTOPRAZOLE 40 MG TABLET (FP) PO SCH (10:05)
[2017-12-13] MEDS: FERROUS SO4 325 MG TABLET (FP) PO SCH ×2 (10:05→21:49)
[2017-12-13] MEDS: POTASSIUM CHLORIDE TABS 20 MEQ TABLET.ER (FP) PO SCH ×2 (10:05→21:49)
[2017-12-13] MEDS: RIVAROXABAN 15 MG TABLET PO SCH (10:06)
[2017-12-13] MEDS: LEFLUNOMIDE 10 MG TABLET PO SCH (10:06)
[2017-12-13] MEDS: ERTAPENEM SODIUM 1 GM in SODIUM CHLORIDE 100 ML IVPB SCH (10:06)
--- NOTE | 2017-12-13 12:35 | PN ---
Progress Note (short form) - Note Progress Note: Alert, in NAD on RA. No acute events overnight. Intake & Output 12/10/17 12/11/17 12/12/17 12/13/17 23:59 23:59 23:59 23:59 Intake Total 468 1048 3630 200 Balance 468 1048 3630 200 Weight 142 lb 2 oz 139 lb 9 oz 137 lb 9.6 oz 141 lb Last Vital Signs Temp Pulse Resp BP Pulse Ox 98.4 F 78 18 143/73 96 12/13/17 08:43 12/13/17 08:43 12/13/17 08:43 12/13/17 08:43 12/13/17 09:00 Active Medications Acetaminophen (Tylenol -) 650 mg PO Q6H PRN PRN Reason: FEVER Last Admin: 12/12/17 18:40 Dose: 650 mg Al Hydroxide/Mg Hydroxide (Mylanta Oral Suspension -) 30 ml PO TID PRN PRN Reason: PAIN Albuterol/Ipratropium (Duoneb -) 1 amp NEB RQID [facility] Last Admin: 12/13/17 11:25 Dose: 1 amp Albuterol/Ipratropium (Duoneb -) 1 amp NEB Q6H PRN PRN Reason: ASTHMA Atenolol (Tenormin -) 50 mg PO DAILY [facility] Last Admin: 12/13/17 10:05 Dose: 50 mg Docusate Sodium (Colace -) 200 mg PO HS [facility] Last Admin: 12/12/17 21:48 Dose: 200 mg Ferrous Sulfate (Feosol -) 325 mg PO BID [facility] Last Admin: 12/13/17 10:05 Dose: 325 mg Fluconazole (Diflucan -) 200 mg PO DAILY [facility] Last Admin: 12/13/17 10:04 Dose: 200 mg Gabapentin (Neurontin -) 100 mg PO TID [facility] Last Admin: 12/13/17 06:07 Dose: 100 mg Sodium Chloride (Normal Saline -) 1,000 mls @ 42 mls/hr IV ASDIR [facility] Last Admin: 12/12/17 21:49 Dose: Not Given Ertapenem 1 gm/ Sodium (Chloride) 100 mls @ 200 mls/hr IVPB DAILY [facility] Last Admin: 12/13/17 10:06 Dose: 200 mls/hr Lactobacillus Acidophilus (Bacid -) 1 cap PO BID [facility] Last Admin: 12/13/17 10:05 Dose: 1 cap Leflunomide (Arava -) 10 mg PO DAILY [facility] Last Admin: 12/13/17 10:06 Dose: 10 mg Levothyroxine Sodium (Synthroid -) 112 mcg PO DAILY@0700 [facility] Last Admin: 12/13/17 06:07 Dose: 112 mcg Magnesium Hydroxide (Milk Of Magnesia -) 30 ml PO DAILY PRN PRN Reason: PAIN Pantoprazole Sodium (Protonix -) 40 mg PO DAILY [facility] Last Admin: 12/13/17 10:05 Dose: 40 mg Potassium Chloride (K-Dur -) 20 meq PO BID [facility] Last Admin: 12/13/17 10:05 Dose: 20 meq Rivaroxaban (Xarelto -) 15 mg PO DAILY [facility] Last Admin: 12/13/17 10:06 Dose: 15 mg Senna (Senna -) 1 tab PO HS [facility] Last Admin: 12/12/17 21:48 Dose: 1 tab Solifenacin (Vesicare -) 5 mg PO DAILY [facility] Last Admin: 12/13/17 10:04 Dose: 5 mg Constitutional: Yes: NAD Eyes: Yes: WNL HENT: Yes: WNL Neck: Yes: WNL Cardiovascular: Yes: Regular Rate and Rhythm, S1, S2 Respiratory: Yes: Bibasilar rhonchi, no wheeze Gastrointestinal: Yes: Normal Bowel Sounds, Soft Extremities: Yes: WNL Edema: No Labs: Laboratory Results - last 24 hr 12/13/17 07:30 Sodium 144 Potassium 3.8 Chloride 114 H Carbon Dioxide 22 Anion Gap 8 BUN 15 Creatinine 0.9 Random Glucose 107 H Calcium 7.8 L Problem List - Problems (1) ESBL E. coli carrier Code(s): Z22.39 - CARRIER OF OTHER SPECIFIED BACTERIAL DISEASES (2) SIRS (systemic inflammatory response syndrome) Code(s): R65.10 - SIRS OF NON-INFECTIOUS ORIGIN W/O ACUTE ORGAN DYSFUNCTION (3) Altered mental status Code(s): R41.82 - ALTERED MENTAL STATUS, UNSPECIFIED (4) UTI (urinary tract infection) Code(s): N39.0 - URINARY TRACT INFECTION, SITE NOT SPECIFIED Qualifiers: Urinary tract infection type: site unspecified Hematuria presence: without hematuria Qualified Code(s): N39.0 - Urinary tract infection, site not specified (5) YAIR (acute kidney injury) Code(s): N17.9 - ACUTE KIDNEY FAILURE, UNSPECIFIED (6) H/O malignant neoplasm of breast Code(s): Z85.3 - PERSONAL HISTORY OF MALIGNANT NEOPLASM OF BREAST Assessment/Plan IMP ALTERED MENTAL STATUS IMPROVED UTI COUGH YAIR IMPROVING ANEMIA CALCIFIED GRANULOMA LLL DEMENTIA H/O BREAST CA S/P LUMPECTOMY H/O BILATERAL DVTS RA PLAN ABX PER ID O2 ONLY IF NEEDED ASPIRATION PRECAUTIONS BD TX PRN DR CHURCH
--- NOTE | 2017-12-13 18:43 | PN ---
Physical Exam: SUBJECTIVE: Patient seen and examined Patient is feeling better, still coughing on and off. OBJECTIVE: Vital Signs Temperature 98.3 F 12/13/17 14:30 Pulse Rate 80 12/13/17 14:30 Respiratory Rate 18 12/13/17 14:30 Blood Pressure 148/75 12/13/17 14:30 O2 Sat by Pulse Oximetry (%) 96 12/13/17 09:00 GENERAL: The patient is awake, alert, and oriented, in no acute distress. HEAD: Normal with no signs of trauma. EYES: PERRL, extraocular movements intact, sclera anicteric, conjunctiva clear. ENT: oropharynx clear without exudates, dry mucous membranes. no thrush. LUNGS: Breath sounds equal, +scattered wheezing, no crackles, no accessory muscle use. HEART: Regular rate and rhythm, S1, S2 without murmur, rub or gallop. ABDOMEN: Soft, nontender, nondistended, normoactive bowel sounds, no guarding, no rebound, no hepatosplenomegaly, no masses. EXTREMITIES: 2+ pulses, warm, well-perfused, NEUROLOGICAL: Normal speech, facial symmetry CBCD WBC 8.0 K/mm3 (4.0-10.0) 12/11/17 07:20 RBC 3.17 M/mm3 (3.60-5.2) L 12/11/17 07:20 Hgb 9.3 GM/dL (10.7-15.3) L 12/11/17 07:20 Hct 28.4 % (32.4-45.2) L 12/11/17 07:20 MCV 89.8 fl (80-96) 12/11/17 07:20 MCHC 32.5 g/dl (32.0-36.0) 12/11/17 07:20 RDW 14.3 % (11.6-15.6) 12/11/17 07:20 Plt Count 182 K/MM3 (134-434) 12/11/17 07:20 MPV 9.2 fl (7.5-11.1) 12/11/17 07:20 CMP Sodium 144 mmol/L (136-145) 12/13/17 07:30 Potassium 3.8 mmol/L (3.5-5.1) 12/13/17 07:30 Chloride 114 mmol/L (98-107) H 12/13/17 07:30 Carbon Dioxide 22 mmol/L (21-32) 12/13/17 07:30 Anion Gap 8 (8-16) 12/13/17 07:30 BUN 15 mg/dL (7-18) 12/13/17 07:30 Creatinine 0.9 mg/dL (0.55-1.02) 12/13/17 07:30 Creat Clearance w eGFR 33.25 (>60) 12/09/17 07:00 Random Glucose 107 mg/dL (74-106) H 12/13/17 07:30 Calcium 7.8 mg/dL (8.5-10.1) L 12/13/17 07:30 Total Bilirubin 0.3 mg/dL (0.2-1.0) D 12/09/17 07:00 AST 52 U/L (15-37) H 12/09/17 07:00 ALT 37 U/L (12-78) 12/09/17 07:00 Alkaline Phosphatase 126 U/L (45-117) H 12/09/17 07:00 Total Protein 6.9 g/dl (6.4-8.2) 12/09/17 07:00 Albumin 3.0 g/dl (3.4-5.0) L 12/09/17 07:00 CARDIAC ENZYMES Troponin I < 0.02 ng/ml (0.00-0.05) 12/08/17 16:00 Active Medications Generic Name Dose Route Start Last Admin Trade Name Freq PRN Reason Stop Dose Admin Acetaminophen 650 mg 12/08/17 20:00 12/12/17 18:40 Tylenol - PO 650 mg Q6H PRN Administration FEVER Al Hydroxide/Mg Hydroxide 30 ml 12/08/17 19:12 Mylanta Oral Suspension - PO TID PRN PAIN Albuterol/Ipratropium 1 amp 12/08/17 20:00 12/13/17 16:35 Duoneb - NEB 1 amp RQID HALIE Administration Albuterol/Ipratropium 1 amp 12/08/17 20:20 Duoneb - NEB Q6H PRN ASTHMA Atenolol 50 mg 12/09/17 10:00 12/13/17 10:05 Tenormin - PO 50 mg DAILY HALIE Administration Docusate Sodium 200 mg 12/08/17 22:00 12/12/17 21:48 Colace - PO 200 mg HS HALIE Administration Ferrous Sulfate 325 mg 12/08/17 22:00 12/13/17 10:05 Feosol - PO 325 mg BID HALIE Administration Fluconazole 200 mg 12/09/17 10:00 12/13/17 10:04 Diflucan - PO 200 mg DAILY HALIE Administration Gabapentin 100 mg 12/08/17 22:00 12/13/17 13:22 Neurontin - PO 100 mg TID HALIE Administration Sodium Chloride 1,000 mls @ 42 mls/hr 12/08/17 19:45 12/12/17 21:49 Normal Saline - IV Not Given ASDIR HALIE Ertapenem 1 gm/ Sodium 100 mls @ 200 mls/hr 12/09/17 10:00 12/13/17 10:06 Chloride IVPB 200 mls/hr DAILY HALIE Administration Lactobacillus Acidophilus 1 cap 12/08/17 22:00 12/13/17 10:05 Bacid - PO 1 cap BID HALIE Administration Leflunomide 10 mg 12/09/17 10:00 12/13/17 10:06 Arava - PO 10 mg DAILY HALIE Administration Levothyroxine Sodium 112 mcg 12/09/17 07:00 12/13/17 06:07 Synthroid - PO 112 mcg DAILY@0700 HALIE Administration Magnesium Hydroxide 30 ml 12/08/17 19:12 Milk Of Magnesia - PO DAILY PRN PAIN Pantoprazole Sodium 40 mg 12/09/17 10:00 12/13/17 10:05 Protonix - PO 40 mg DAILY HALIE Administration Potassium Chloride 20 meq 12/11/17 10:30 12/13/17 10:05 K-Dur - PO 20 meq BID HALIE Administration Rivaroxaban 15 mg 12/09/17 10:00 12/13/17 10:06 Xarelto - PO 15 mg DAILY HALIE Administration Senna 1 tab 12/08/17 22:00 12/12/17 21:48 Senna - PO 1 tab HS HALIE Administration Solifenacin 5 mg 12/09/17 10:00 12/13/17 10:04 Vesicare - PO 5 mg DAILY HALIE Administration Home Medications Medication Instructions Recorded Acetaminophen 650 mg PO PRN 12/08/17 Acidoph/L.bulg/Bif.b/S.thermop 1 each PO BID 12/08/17 [Leonela-Bid Caplet] Atenolol [Tenormin -] 50 mg PO DAILY 12/08/17 Docusate Sodium 200 mg PO HS 12/08/17 Duloxetine HCl [Cymbalta] 60 mg PO DAILY 12/08/17 Ferrous Sulfate 325 mg PO BID 12/08/17 Fluconazole 200 mg PO DAILY 12/08/17 Gabapentin [Neurontin] 100 mg PO TID 12/08/17 Lansoprazole [Prevacid] 30 mg PO DAILY 12/08/17 Leflunomide [Arava -] 10 mg PO DAILY 12/08/17 Levothyroxine [Synthroid -] 112 mcg PO DAILY 12/08/17 Lisinopril [Prinivil] 10 mg PO DAILY 12/08/17 Loratadine [Claritin] 10 mg PO DAILY 12/08/17 Mag Hydrox/Aluminum Hyd/Simeth 30 ml PO TID PRN 12/08/17 [Maalox Advanced Suspension] Magnesium Hydroxide [Milk of 30 ml PO DAILY PRN 12/08/17 Magnesia] Melatonin 3 mg PO HS 12/08/17 Mirtazapine 22.5 mg PO DAILY 12/08/17 Olopatadine HCl [Patanol] 1 drop OU DAILY 12/08/17 Oxybutynin Chloride [Oxybutynin 5 mg PO DAILY 12/08/17 Chloride ER] Rivaroxaban [Xarelto -] 15 mg PO DAILY 12/08/17 Sennosides [Senna] 1 tab PO HS 12/08/17 Microbiology 12/08/17 16:00 Blood - Peripheral Venous Blood Culture - Final NO GROWTH AFTER 5 DAYS INCUBATION 12/08/17 16:00 Blood - Peripheral Venous Blood Culture - Final NO GROWTH AFTER 5 DAYS INCUBATION 12/08/17 16:37 Urine - Urine - Catheterized Urine Culture - Final Escherichia Coli Esbl Wood Piler 12/09/17 12:09 Nasopharyngeal Swab Influenza Types A,B Antigen (DANIEL) - Final 12/09/17 12:09 Nasopharyngeal Swab - Final ASSESSMENT/PLAN: Patient is a 82 yo woman from [facility], with HTN, severe RA, hypothyroidism, recurrent UTI's, dementia, L breast cancer s/p lumpectomy, admitted for UTI with resistant organism. #Acute metabolic encephalopathy improved due to UTI, ESBL in urine culture, continue Ertapenem 1gm daily started 12/09/2017 day 5/ will be completed on Friday12/15/2017 ID consult: Dr. Hyman, Tylenol 650mg po PRN for fever # s/p Hypokalemia improved on Kdur #YAIR, improved with IVF #Acute Asthma/COPD exacerbation Duonebs PRN, scheduled due to continued wheezing , O2 therapy prn. Pulm consulted: Dr. Garcia #HTN continue Atenolol 50mg qd, Lisinopril due to YAIR #Anemia- chronic cont. Iron 325mg BID + colace + senna #RA Lefunomide 10 mg PO DAILY #Hx of DVT: Xarelto 15mg po daily #Hypothyroidism continue Synthroid 112mcg qdaily #Hx of Fungal infections, prophylaxis with daily Fluconazole #dvt PPX: Xarelto Physical therapy for deconditioning can be discharged on Friday back to [facility] Visit type - Emergency Visit Emergency Visit: Yes ED Registration Date: 12/08/17 Care time: The patient presented to the Emergency Department on the above date and was hospitalized for further evaluation of their emergent condition. - New Patient This patient is new to me today: No - Critical Care Critical Care patient: No - Discharge Referral Referred to [facility] Med P.C.: No
[2017-12-13] MEDS: SODIUM CHLORIDE 1,000 ML IV SCH (18:45)
[2017-12-13] MEDS: DOCUSATE SODIUM 100 MG CAPSULE (FP) PO SCH (21:49)
[2017-12-13] MEDS: SENNOSIDES 8.6MG TABLET (FP) PO SCH (21:49)
[2017-12-14] MEDS: LEVOTHYROXINE NA 112 MCG TABLET (FP) PO SCH (06:05)
[2017-12-14] MEDS: GABAPENTIN 100 MG CAPSULE (FP) PO SCH ×3 (06:05→22:05)
[2017-12-14] MEDS ORDERED: PT OWN MED DRAWER 7, Y5N ONE ×2 (09:10→21:13)
[2017-12-14] MEDS: SOLIFENACIN SUCCINATE 5 MG TAB (FP) PO SCH (09:13)
[2017-12-14] MEDS: LEFLUNOMIDE 10 MG TABLET PO SCH (09:14)
[2017-12-14] MEDS: PANTOPRAZOLE 40 MG TABLET (FP) PO SCH (09:14)
[2017-12-14] MEDS: FLUCONAZOLE 100 MG TABLET (UD) PO SCH (09:14)
[2017-12-14] MEDS: ATENOLOL 50 MG TABLET (FP) PO SCH (09:14)
[2017-12-14] MEDS: POTASSIUM CHLORIDE TABS 20 MEQ TABLET.ER (FP) PO SCH (09:14)
[2017-12-14] MEDS: LACTOBACILLUS ACIDOPHILUS 1 TABLET PO SCH ×2 (09:15→22:05)
[2017-12-14] MEDS: FERROUS SO4 325 MG TABLET (FP) PO SCH ×2 (09:15→22:06)
[2017-12-14] MEDS: RIVAROXABAN 15 MG TABLET PO SCH (09:15)
[2017-12-14] MEDS ORDERED: PROMETHAZINE HCL 25 MG/1 ML VIAL IVPB PRN (09:53)
--- NOTE | 2017-12-14 09:55 | PN ---
Physical Exam: SUBJECTIVE: Patient seen and examined. She complains of nausea. OBJECTIVE: Vital Signs Period Temp Pulse Resp BP Sys/Banuelos Pulse Ox Last 24 Hr 98.0 F-99.1 F 68-85 18-20 118-150/65-81 96 GENERAL: The patient is awake, alert, and in no acute distress. LUNGS: Breath sounds equal, clear to auscultation bilaterally, no wheezes, no crackles, no accessory muscle use. HEART: Regular rate and rhythm, S1, S2 without murmur, rub or gallop. ABDOMEN: Soft, nontender, nondistended, normoactive bowel sounds, no guarding, no rebound, no hepatosplenomegaly, no masses. EXTREMITIES: 2+ pulses, warm, well-perfused, no edema. Active Medications Generic Name Dose Route Start Last Admin Trade Name Freq PRN Reason Stop Dose Admin Acetaminophen 650 mg 12/08/17 20:00 12/12/17 18:40 Tylenol - PO 650 mg Q6H PRN Administration FEVER Al Hydroxide/Mg Hydroxide 30 ml 12/08/17 19:12 Mylanta Oral Suspension - PO TID PRN PAIN Atenolol 50 mg 12/09/17 10:00 12/14/17 09:14 Tenormin - PO 50 mg DAILY HALIE Administration Docusate Sodium 200 mg 12/08/17 22:00 12/13/17 21:49 Colace - PO 200 mg HS HALIE Administration Ferrous Sulfate 325 mg 12/08/17 22:00 12/14/17 09:15 Feosol - PO 325 mg BID HALIE Administration Fluconazole 200 mg 12/09/17 10:00 12/14/17 09:14 Diflucan - PO 200 mg DAILY HALIE Administration Gabapentin 100 mg 12/08/17 22:00 12/14/17 06:05 Neurontin - PO 100 mg TID HALIE Administration Sodium Chloride 1,000 mls @ 42 mls/hr 12/08/17 19:45 12/13/17 18:45 Normal Saline - IV 42 mls/hr ASDIR HALIE Administration Ertapenem 1 gm/ Sodium 100 mls @ 200 mls/hr 12/09/17 10:00 12/13/17 10:06 Chloride IVPB 200 mls/hr DAILY HALIE Administration Lactobacillus Acidophilus 1 cap 12/08/17 22:00 04/15/18 09:15 Bacid - PO 1 cap BID HALIE Administration Leflunomide 10 mg 12/09/17 10:00 12/14/17 09:14 Arava - PO 10 mg DAILY HALIE Administration Levothyroxine Sodium 112 mcg 12/09/17 07:00 12/14/17 06:05 Synthroid - PO 112 mcg DAILY@0700 HALIE Administration Magnesium Hydroxide 30 ml 12/08/17 19:12 Milk Of Magnesia - PO DAILY PRN PAIN Pantoprazole Sodium 40 mg 12/09/17 10:00 12/14/17 09:14 Protonix - PO 40 mg DAILY HALIE Administration Potassium Chloride 20 meq 12/11/17 10:30 12/14/17 09:14 K-Dur - PO 20 meq BID HALIE Administration Rivaroxaban 15 mg 12/09/17 10:00 12/14/17 09:15 Xarelto - PO 15 mg DAILY HALIE Administration Senna 1 tab 12/08/17 22:00 12/13/17 21:49 Senna - PO 1 tab HS HALIE Administration Solifenacin 5 mg 12/09/17 10:00 12/14/17 09:13 Vesicare - PO 5 mg DAILY HALIE Administration ASSESSMENT/PLAN: This is an 82 year old woman from [facility] who has a history of HTN, RA , hypothyroidism, recurrent UTIs, dementia, breast cancer, left lumpectomy, DVT who presented to the ED with weakness and confusion. 1. Acute metabolic encephalopathy secondary to ESBL E. coli UTI - Continue Invanz (day 6/7) 2. Acute kidney injury - Resolved - Discontinue IV fluid - Restart Lisinopril 3. Hyponatremia/hypernatremia - Resolved 4. Hypokalemia - Improved 5. HTN - Continue Atenolol - Restart Lisinopril 6. Anemia - Continue ferrous sulfate 7. Rheumatoid arthritis - Continue Arava 8. History of DVT - Continue Xarelto 9. Hypothyroidism - Continue Synthroid 10. Dementia 11. History of breast cancer, left lumpectomy 12. Disposition - Expect discharge back to [facility] tomorrow after last dose of Invanz Visit type - Emergency Visit Emergency Visit: Yes ED Registration Date: 12/08/17 Care time: The patient presented to the Emergency Department on the above date and was hospitalized for further evaluation of their emergent condition. - New Patient This patient is new to me today: No - Critical Care Critical Care patient: No - Discharge Referral Referred to [facility] Med P.C.: No
[2017-12-14] MEDS: ERTAPENEM SODIUM 1 GM in SODIUM CHLORIDE 100 ML IVPB SCH (10:06)
--- NOTE | 2017-12-14 12:22 | PN ---
Progress Note (short form) - Note Progress Note: Alert, in NAD on 2 L NC. No acute events overnight. Intake & Output 12/11/17 12/12/17 12/13/17 12/14/17 23:59 23:59 23:59 23:59 Intake Total 1048 3630 1600 804 Balance 1048 3630 1600 804 Weight 139 lb 9 oz 137 lb 9.6 oz 141 lb 142 lb Last Vital Signs Temp Pulse Resp BP Pulse Ox 98.0 F 68 18 150/81 98 12/14/17 08:17 12/14/17 08:17 12/14/17 09:00 12/14/17 08:17 12/14/17 09:00 Active Medications Acetaminophen (Tylenol -) 650 mg PO Q6H PRN PRN Reason: FEVER Last Admin: 12/12/17 18:40 Dose: 650 mg Al Hydroxide/Mg Hydroxide (Mylanta Oral Suspension -) 30 ml PO TID PRN PRN Reason: PAIN Atenolol (Tenormin -) 50 mg PO DAILY [facility] Last Admin: 12/14/17 09:14 Dose: 50 mg Docusate Sodium (Colace -) 200 mg PO HS [facility] Last Admin: 12/13/17 21:49 Dose: 200 mg Ferrous Sulfate (Feosol -) 325 mg PO BID [facility] Last Admin: 12/14/17 09:15 Dose: 325 mg Fluconazole (Diflucan -) 200 mg PO DAILY [facility] Last Admin: 12/14/17 09:14 Dose: 200 mg Gabapentin (Neurontin -) 100 mg PO TID [facility] Last Admin: 12/14/17 06:05 Dose: 100 mg Sodium Chloride (Normal Saline -) 1,000 mls @ 42 mls/hr IV ASDIR [facility] Last Admin: 12/13/17 18:45 Dose: 42 mls/hr Ertapenem 1 gm/ Sodium (Chloride) 100 mls @ 200 mls/hr IVPB DAILY [facility] Last Admin: 12/14/17 10:06 Dose: 200 mls/hr Lactobacillus Acidophilus (Bacid -) 1 cap PO BID [facility] Last Admin: 12/14/17 09:15 Dose: 1 cap Leflunomide (Arava -) 10 mg PO DAILY [facility] Last Admin: 12/14/17 09:14 Dose: 10 mg Levothyroxine Sodium (Synthroid -) 112 mcg PO DAILY@0700 [facility] Last Admin: 12/14/17 06:05 Dose: 112 mcg Magnesium Hydroxide (Milk Of Magnesia -) 30 ml PO DAILY PRN PRN Reason: PAIN Pantoprazole Sodium (Protonix -) 40 mg PO DAILY [facility] Last Admin: 12/14/17 09:14 Dose: 40 mg Potassium Chloride (K-Dur -) 20 meq PO BID [facility] Last Admin: 12/14/17 09:14 Dose: 20 meq Promethazine HCl (Phenergan Injection -) 12.5 mg IVPB Q6H PRN PRN Reason: NAUSEA AND/OR VOMITING Rivaroxaban (Xarelto -) 15 mg PO DAILY [facility] Last Admin: 12/14/17 09:15 Dose: 15 mg Senna (Senna -) 1 tab PO HS [facility] Last Admin: 12/13/17 21:49 Dose: 1 tab Solifenacin (Vesicare -) 5 mg PO DAILY [facility] Last Admin: 12/14/17 09:13 Dose: 5 mg Constitutional: Yes: NAD Eyes: Yes: WNL HENT: Yes: WNL Neck: Yes: WNL Cardiovascular: Yes: Regular Rate and Rhythm, S1, S2 Respiratory: Yes: Bibasilar rhonchi, no wheeze Gastrointestinal: Yes: Normal Bowel Sounds, Soft Extremities: Yes: WNL Edema: No Labs: Problem List - Problems (1) ESBL E. coli carrier Code(s): Z22.39 - CARRIER OF OTHER SPECIFIED BACTERIAL DISEASES (2) SIRS (systemic inflammatory response syndrome) Code(s): R65.10 - SIRS OF NON-INFECTIOUS ORIGIN W/O ACUTE ORGAN DYSFUNCTION (3) Altered mental status Code(s): R41.82 - ALTERED MENTAL STATUS, UNSPECIFIED (4) UTI (urinary tract infection) Code(s): N39.0 - URINARY TRACT INFECTION, SITE NOT SPECIFIED Qualifiers: Urinary tract infection type: site unspecified Hematuria presence: without hematuria Qualified Code(s): N39.0 - Urinary tract infection, site not specified (5) YAIR (acute kidney injury) Code(s): N17.9 - ACUTE KIDNEY FAILURE, UNSPECIFIED (6) H/O malignant neoplasm of breast Code(s): Z85.3 - PERSONAL HISTORY OF MALIGNANT NEOPLASM OF BREAST Assessment/Plan IMP ALTERED MENTAL STATUS IMPROVED UTI COUGH YAIR IMPROVING ANEMIA CALCIFIED GRANULOMA LLL DEMENTIA H/O BREAST CA S/P LUMPECTOMY H/O BILATERAL DVTS RA PLAN ABX PER ID O2 PRN ASPIRATION PRECAUTIONS BD [place] PRN DR CHURCH
[2017-12-14] MEDS: LISINOPRIL 10 MG TABLET (FP) PO SCH (16:11)
[2017-12-14] MEDS: DOCUSATE SODIUM 100 MG CAPSULE (FP) PO SCH (22:05)
[2017-12-14] MEDS: SENNOSIDES 8.6MG TABLET (FP) PO SCH (22:05)
[2017-12-15] MEDS: GABAPENTIN 100 MG CAPSULE (FP) PO SCH ×2 (05:46→14:09)
[2017-12-15] MEDS: LEVOTHYROXINE NA 112 MCG TABLET (FP) PO SCH (06:25)
[2017-12-15] MEDS ORDERED: PT OWN MED DRAWER 7, Y5N ONE (09:28)
[2017-12-15 09:38] LABS: ANION GAP 6 (8-16); BLOOD UREA NITROGEN 16 mg/dL (7-18); CALCIUM 8.1 mg/dL (8.5-10.1); CHLORIDE 109 mmol/L (98-107); CO2 26 mmol/L (21-32); GLUCOSE,RANDOM 89 mg/dL (74-106); POTASSIUM 4.1 mmol/L (3.5-5.1); SODIUM 141 mmol/L (136-145)
[2017-12-15] MEDS: ERTAPENEM SODIUM 1 GM in SODIUM CHLORIDE 100 ML IVPB SCH (09:48)
[2017-12-15] MEDS: LEFLUNOMIDE 10 MG TABLET PO SCH (09:50)
[2017-12-15] MEDS: FLUCONAZOLE 100 MG TABLET (UD) PO SCH (09:50)
[2017-12-15] MEDS: PANTOPRAZOLE 40 MG TABLET (FP) PO SCH (09:51)
[2017-12-15] MEDS: RIVAROXABAN 15 MG TABLET PO SCH (09:51)
[2017-12-15] MEDS: FERROUS SO4 325 MG TABLET (FP) PO SCH (09:51)
[2017-12-15] MEDS: SOLIFENACIN SUCCINATE 5 MG TAB (FP) PO SCH (09:51)
[2017-12-15] MEDS: ATENOLOL 50 MG TABLET (FP) PO SCH (09:51)
[2017-12-15] MEDS: LISINOPRIL 10 MG TABLET (FP) PO SCH (09:52)
--- NOTE | 2017-12-15 13:14 | PN ---
Progress Note (short form) - Note Progress Note: PULMONARY Denies shortness of breath, chest pain or cough. No fevers or chills. Last Vital Signs Temp Pulse Resp BP Pulse Ox 98.5 F 68 18 129/68 97 12/15/17 08:00 12/15/17 08:00 12/15/17 08:00 12/15/17 08:00 12/14/17 21:00 Gen: NAD at rest Heart: RRR Lung: decreased breath sounds at the bases Abd: soft, nontender Ext: no edema CBC, BMP 12/11/17 07:20 12/15/17 07:30 Active Medications Acetaminophen (Tylenol -) 650 mg PO Q6H PRN PRN Reason: FEVER Last Admin: 12/12/17 18:40 Dose: 650 mg Al Hydroxide/Mg Hydroxide (Mylanta Oral Suspension -) 30 ml PO TID PRN PRN Reason: PAIN Atenolol (Tenormin -) 50 mg PO DAILY [facility] Last Admin: 12/15/17 09:51 Dose: 50 mg Docusate Sodium (Colace -) 200 mg PO HS [facility] Last Admin: 12/14/17 22:05 Dose: 200 mg Ferrous Sulfate (Feosol -) 325 mg PO BID [facility] Last Admin: 12/15/17 09:51 Dose: 325 mg Fluconazole (Diflucan -) 200 mg PO DAILY [facility] Last Admin: 12/15/17 09:50 Dose: 200 mg Gabapentin (Neurontin -) 100 mg PO TID [facility] Last Admin: 12/15/17 05:46 Dose: 100 mg Ertapenem 1 gm/ Sodium (Chloride) 100 mls @ 200 mls/hr IVPB DAILY [facility] Last Admin: 12/15/17 09:48 Dose: 200 mls/hr Lactobacillus Acidophilus (Bacid -) 1 cap PO BID [facility] Last Admin: 12/14/17 22:05 Dose: 1 cap Leflunomide (Arava -) 10 mg PO DAILY [facility] Last Admin: 12/15/17 09:50 Dose: 10 mg Levothyroxine Sodium (Synthroid -) 112 mcg PO DAILY@0700 [facility] Last Admin: 12/15/17 06:25 Dose: 112 mcg Lisinopril (Prinivil) 10 mg PO DAILY [facility] Last Admin: 12/15/17 09:52 Dose: 10 mg Magnesium Hydroxide (Milk Of Magnesia -) 30 ml PO DAILY PRN PRN Reason: PAIN Pantoprazole Sodium (Protonix -) 40 mg PO DAILY [facility] Last Admin: 12/15/17 09:51 Dose: 40 mg Promethazine HCl (Phenergan Injection -) 12.5 mg IVPB Q6H PRN PRN Reason: NAUSEA AND/OR VOMITING Rivaroxaban (Xarelto -) 15 mg PO DAILY [facility] Last Admin: 12/15/17 09:51 Dose: 15 mg Senna (Senna -) 1 tab PO HS [facility] Last Admin: 12/14/17 22:05 Dose: 1 tab Solifenacin (Vesicare -) 5 mg PO DAILY [facility] Last Admin: 12/15/17 09:51 Dose: 5 mg A/P Pneumonia UTI HTN Rheumatoid Arthritis Hypothyroidism h/o Breast Ca h/o DVT Dementia - complete antibiotics - continue anticoagulation - PO as tolerated
--- NOTE | 2017-12-15 13:27 | DS ---
Physical Exam: Microbiology 12/09/17 12:09 Nasopharyngeal Swab Influenza Types A,B Antigen (DANIEL) - Final 12/09/17 12:09 Nasopharyngeal Swab - Final 12/08/17 16:37 Urine - Urine - Catheterized Urine Culture - Final Escherichia Coli Esbl All Source Analyst 12/08/17 16:00 Blood - Peripheral Venous Blood Culture - Final NO GROWTH AFTER 5 DAYS INCUBATION 12/08/17 16:00 Blood - Peripheral Venous Blood Culture - Final NO GROWTH AFTER 5 DAYS INCUBATION Selected Entries 12/12/17 12/15/17 12/15/17 18:00 09:00 14:28 Temperature 100.4 F H 98.1 F Pulse Rate 63 Respiratory 18 Rate Blood Pressure 122/54 O2 Sat by Pulse 95 Oximetry (%) Oxygen Flow 2 Rate Laboratory Tests 12/08/17 12/08/17 12/08/17 16:00 16:00 16:37 WBC 10.9 H D Hgb Hct Plt Count Sodium Potassium Chloride Carbon Dioxide Anion Gap BUN 48 H Creatinine 2.4 H Troponin I < 0.02 Urine Protein 2+ H Urine Blood 1+ H Ur Leukocyte Esterase 2+ H Urine WBC (Auto) 32 Urine RBC (Auto) 1 Hyaline Casts 6 Urine Mucus Few Urine Osmolality U Random Total Protein Ur Random Sodium Ur Random Potassium Ur Random Chloride Urine Creatinine Protein/Creatinin Ratio Stool Occult Blood 12/08/17 12/09/17 12/09/17 23:06 00:00 07:00 WBC Hgb Hct Plt Count Sodium Potassium Chloride Carbon Dioxide Anion Gap BUN 37 H Creatinine 1.5 H Troponin I Urine Protein Urine Blood Ur Leukocyte Esterase Urine WBC (Auto) Urine RBC (Auto) Hyaline Casts Urine Mucus Urine Osmolality 407 U Random Total Protein 104 H Ur Random Sodium 39 Ur Random Potassium 39.6 Ur Random Chloride 31 Urine Creatinine 69.7 Protein/Creatinin Ratio 1.49 Stool Occult Blood 12/09/17 12/11/17 12/15/17 09:25 07:20 07:30 WBC 8.0 Hgb 9.3 L Hct 28.4 L Plt Count 182 Sodium 141 Potassium 4.1 Chloride 109 H Carbon Dioxide 26 Anion Gap 6 L BUN 16 Creatinine 1.0 Troponin I Urine Protein Urine Blood Ur Leukocyte Esterase Urine WBC (Auto) Urine RBC (Auto) Hyaline Casts Urine Mucus Urine Osmolality U Random Total Protein Ur Random Sodium Ur Random Potassium Ur Random Chloride Urine Creatinine Protein/Creatinin Ratio Stool Occult Blood Negative CXR- No infiltrate Renal u/s- No hydronephrosis HOSPITAL COURSE: Date of Admission:12/08/17 Date of Discharge: 12/15/17 82 yo F from [facility] with a PMHx of HTN, severe RA, hypothyroidism, B/L DVT's, recurrent UTI's, dementia, L breast cancer s/p lumpectomy, presented with weakness and AMS since and was found to have UTI. Patient admitted for acute metabolic encephalopathy 2/2 to UTI. Patient treated with IV ertapenem x 7 days. Patient's mental status improved and was d/c back to [facility]. For her COPD exacerbation, patient treated with duonebs, which improved. Chronic issues: #HTN continue Atenolol 50mg qd, Lisinopril due to YAIR #Anemia- chronic cont. Iron 325mg BID + colace + senna #RA Lefunomide 10 mg PO DAILY #Hx of DVT: Xarelto 15mg po daily #Hypothyroidism continue Synthroid 112mcg qdaily #Hx of Fungal infections, prophylaxis with daily Fluconazole #dvt PPX: Xarelto Minutes to complete discharge: 40 Discharge Summary Reason For Visit: ACUTE KIDNEY INJ/UTI Current Active Problems YAIR (acute kidney injury) (Acute) Altered mental status (Acute) ESBL E. 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 You completed the course of antibiotics in the hospital. Follow-up with your primary care physician, [facility]. Ibar[facility] for [facility]-hospital evaluation. Continue your home medications as prescribed. If you develop new symptoms, have chest pain, or shortness of breath please come back to the hospital immediately. Referrals: Panfilo Ibarra MD [Primary Care Provider] - Disposition: [facility] - Home Medications Comprehensive Discharge Medication List: Ambulatory Orders Acetaminophen 650 mg PO PRN 12/08/17 Acidoph/L.bulg/Bif.b/S.thermop [Leonela-Bid Caplet] 1 each PO BID 12/08/17 Atenolol [Tenormin -] 50 mg PO DAILY 12/08/17 Docusate Sodium 200 mg PO HS 12/08/17 Duloxetine HCl [Cymbalta] 60 mg PO DAILY 12/08/17 Ferrous Sulfate 325 mg PO BID 12/08/17 Fluconazole 200 mg PO DAILY 12/08/17 Gabapentin [Neurontin] 100 mg PO TID 12/08/17 Lansoprazole [Prevacid] 30 mg PO DAILY 12/08/17 Leflunomide [Arava -] 10 mg PO DAILY 12/08/17 Levothyroxine [Synthroid -] 112 mcg PO DAILY 12/08/17 Lisinopril [Prinivil] 10 mg PO DAILY 12/08/17 Loratadine [Claritin] 10 mg PO DAILY 12/08/17 Mag Hydrox/Aluminum Hyd/Simeth [Maalox Advanced Suspension] 30 ml PO TID PRN 05/19 Magnesium Hydroxide [Milk of Magnesia] 30 ml PO DAILY PRN 12/08/17 Melatonin 3 mg PO HS 12/08/17 Mirtazapine 22.5 mg PO DAILY 12/08/17 Olopatadine HCl [Patanol] 1 drop OU DAILY 12/08/17 Oxybutynin Chloride [Oxybutynin Chloride ER] 5 mg PO DAILY 12/08/17 Rivaroxaban [Xarelto -] 15 mg PO DAILY 12/08/17 Sennosides [Senna -] 1 tab PO HS 12/08/17 This patient is new to me today: No Emergency Visit: Yes ED Registration Date: 12/08/17 Care time: The patient presented to the Emergency Department on the above date and was hospitalized for further evaluation of their emergent condition. Critical Care patient: No - Discharge Referral Referred to [facility] Med P.C.: No
[2017-12-15] MEDS: LACTOBACILLUS ACIDOPHILUS 1 TABLET PO SCH (14:09)
[2017-12-15 14:30] VITALS: BP 122/54; PULSE 63; TEMP 98.1
--- NOTE | 2017-12-15 16:07 | PN ---
Teaching Attending Note Name of Resident: Nolberto Kebede ATTENDING PHYSICIAN STATEMENT I saw and evaluated the patient. I reviewed the resident's note and discussed the case with the resident. I agree with the resident's findings and plan as documented. SUBJECTIVE: Patient has no complaints. OBJECTIVE: Vital Signs Period Temp Pulse Resp BP Sys/Banuelos Pulse Ox Last 24 Hr 98.1 F-98.5 F 60-70 18-24 122-146/54-80 95-97 HEART: S1S2, RRR LUNGS: Clear ABDOMEN: Soft, non-tender, non-distended, normal BS EXTREMITIES: No edema Laboratory Results - last 24 hr 12/15/17 07:30 Sodium 141 Potassium 4.1 Chloride 109 H Carbon Dioxide 26 Anion Gap 6 L BUN 16 Creatinine 1.0 Random Glucose 89 Calcium 8.1 L ASSESSMENT AND PLAN: This is an 82 year old woman from [facility] who has a history of HTN, RA , hypothyroidism, recurrent UTIs, dementia, breast cancer, left lumpectomy, DVT who presented to the ED with weakness and confusion. 1. Acute metabolic encephalopathy secondary to ESBL E. coli UTI - Completed 7 days of Invanz 2. Acute kidney injury - Resolved 3. Hyponatremia/hypernatremia - Resolved 4. Hypokalemia - Resolved 5. HTN - Continue Atenolol, Lisinopril 6. Anemia - Continue ferrous sulfate 7. Rheumatoid arthritis - Continue Arava 8. History of DVT - Continue Xarelto 9. Hypothyroidism - Continue Synthroid 10. Dementia 11. History of breast cancer, left lumpectomy 12. Ok for discharge to [facility]
== END 2017-12-15 15:57 | DRG 689 ==
LOC: JER 14:31 → JERBED 22:14 → J6S 12-09 12:24
PROVIDERS: ADMIT Internal Medicine; ATTEND Internal Medicine
DX: N39.0 Urinary tract infection, site not specified (principal); G93.41 Metabolic encephalopathy; N17.9 Acute kidney failure, unspecified; J44.1 Chronic obstructive pulmonary disease with (acute) exacerbation; J45.901 Unspecified asthma with (acute) exacerbation; E87.1 Hypo-osmolality and hyponatremia; E87.0 Hyperosmolality and hypernatremia; R41.82 Altered mental status, unspecified; E03.9 Hypothyroidism, unspecified; I10 Essential (primary) hypertension; D64.9 Anemia, unspecified; F03.90 Unspecified dementia, unspecified severity, without behavioral disturbance, psychotic disturbance, mood disturbance, and anxiety; K21.9 Gastro-esophageal reflux disease without esophagitis; Z85.3 Personal history of malignant neoplasm of breast; Z16.12 Extended spectrum beta lactamase (ESBL) resistance; B96.20 Unspecified Escherichia coli [E. coli] as the cause of diseases classified elsewhere; E87.6 Hypokalemia; M06.9 Rheumatoid arthritis, unspecified; E86.0 Dehydration; D72.829 Elevated white blood cell count, unspecified
CPT/HCPCS: 36415; 71045-TC-FY; 76775-TC; 80048; 80053; 81003; 81015; 82272; 82436; 82570; 82803; 83605; 83735; 83930; 83935; 84100; 84133; 84156; 84300; 84443; 84484; 85025; 85610; 85730; 87040; 87086; 87186; 87804; 93005; 93010; 94640; 97161-GP; 99284-25; J0131; J7030

== ENCOUNTER 2017-12-23 15:34 | Inpatient (IN) | payer OTHER ==
[2017-12-23 16:09] VITALS: BMI 22.6
[2017-12-23] MEDS: SODIUM CHLORIDE 1,000 ML IV SCH (16:10)
[2017-12-23 16:11] LABS: BASO % 0.9 % (0-2.0); EOS % 4.2 % (0-4.5); HEMATOCRIT 28.4 % (32.4-45.2); HEMOGLOBIN 9.3 GM/dL (10.7-15.3); LYMPH % 17.1 % (8-40); MCH 29.2 pg (25.7-33.7); MCHC 32.6 g/dl (32.0-36.0); MEAN CELL VOLUME 89.6 fl (80-96); MEAN PLT VOLUME 9.8 fl (7.5-11.1); MONO % 8.3 % (3.8-10.2); NEUT % 69.5 % (42.8-82.8); PLATELET COUNT 300 K/MM3 (134-434); RBC 3.17 M/mm3 (3.60-5.2); RDW 14.1 % (11.6-15.6); WHITE BLOOD COUNT 8.1 K/mm3 (4.0-10.0)
--- NOTE | 2017-12-23 16:22 | EKG ---
Test Reason : Blood Pressure : / mmHG Vent. Rate : 062 BPM Atrial Rate : 468 BPM P-R Int : 000 ms QRS Dur : 090 ms QT Int : 444 ms P-R-T Axes : 000 -18 -25 degrees QTc Int : 450 ms POOR DATA QUALITY, INTERPRETATION MAY BE ADVERSELY AFFECTED NORMAL SINUS RHYTHM MINIMAL VOLTAGE CRITERIA FOR LVH, MAY BE NORMAL VARIANT T WAVE ABNORMALITY, CONSIDER ANTERIOR ISCHEMIA ABNORMAL ECG NONSPECIFIC T WAVE ABNORMALITY, WORSE IN LATERAL LEADS Confirmed by MD MARIPOSA, DILLAN ([id number]) on 12/23/2017 4:22:45 PM Referred By: Confirmed By:DILLAN MONGE MD
[2017-12-23 16:24] LABS: INR 1.22 (0.82-1.09); PROTHROMBIN TIME (PATIENT) 13.8 SEC (9.7-13.0)
--- NOTE | 2017-12-23 16:37 | PDOC ---
History of Present Illness - General Chief Complaint: CVA/TIA Stated Complaint: STROKE Time Seen by Provider: 12/23/17 15:37 - History of Present Illness Initial Comments: 12/23/17 17:09 "The patient is a 82 year old female, from [facility], with a significant PMH of hypertension, COPD, RA, anemia, hypothyroidism, UTI, dementia, GERD, breast cancer, who presents to the emergency department with slurred speech and left sided facial droop since 2:30 pm. As per the [place] [facility] staff the patient was last seen normal at 1:45 pm earlier at lunch. At 2:30, [place] staff found pt had developed a facial droop and had difficulty raising her left arm. The patient states that at around this time, she noticed her speech started to slur. She denies CALDWELL/N/V. Denies F/C. Denies any numbness in any extremity. The patient states she is on the blood thinner Xarelto. The patient denies chest pain, shortness of breath, headache and dizziness. Denies fever, chills, nausea, vomit, diarrhea and constipation. Denies dysuria, frequency, urgency and hematuria. Allergies: penicillins, sulfa (sulfonamide antibiotics) Past History - Past Medical History Allergies/Adverse Reactions: Allergies Allergy/AdvReac Type Severity Reaction Status Date / Time Penicillins Allergy Verified 12/23/17 15:54 Sulfa (Sulfonamide Allergy Verified 12/23/17 15:54 Antibiotics) Home Medications: Ambulatory Orders Acetaminophen 650 mg PO PRN 12/08/17 Acidoph/L.bulg/Bif.b/S.thermop [Leonela-Bid Caplet] 1 each PO BID 12/08/17 Atenolol [Tenormin -] 50 mg PO DAILY 12/08/17 Docusate Sodium 200 mg PO HS 12/08/17 Duloxetine HCl [Cymbalta] 60 mg PO DAILY 12/08/17 Ferrous Sulfate 325 mg PO BID 12/08/17 Fluconazole 200 mg PO DAILY 12/08/17 Gabapentin [Neurontin] 100 mg PO TID 12/08/17 Lansoprazole [Prevacid] 30 mg PO DAILY 12/08/17 Leflunomide [Arava -] 10 mg PO DAILY 12/08/17 Levothyroxine [Synthroid -] 112 mcg PO DAILY 12/08/17 Lisinopril [Prinivil] 10 mg PO DAILY 12/08/17 Loratadine [Claritin] 10 mg PO DAILY 12/08/17 Mag Hydrox/Aluminum Hyd/Simeth [Maalox Advanced Suspension] 30 ml PO TID PRN 05/19 Magnesium Hydroxide [Milk of Magnesia] 30 ml PO DAILY PRN 12/08/17 Melatonin 3 mg PO HS 12/08/17 Mirtazapine 22.5 mg PO DAILY 12/08/17 Olopatadine HCl [Patanol] 1 drop OU DAILY 12/08/17 Oxybutynin Chloride [Oxybutynin Chloride ER] 5 mg PO DAILY 12/08/17 Rivaroxaban [Xarelto -] 15 mg PO HS 12/08/17 Sennosides [Senna -] 1 tab PO HS 12/08/17 Mirtazapine [Remeron -] 30 mg PO DAILY 12/23/17 Sennosides [Senna] 2 tab PO HS 12/23/17 Anemia: Yes Cancer: Yes (Breast CA) COPD: Yes DVT: Yes Dementia: Yes GI Disorders: Yes (GERD) HTN: Yes Psychiatric Problems: Yes (depression,) Thyroid Disease: Yes (Hypothyroid) - Surgical History Orthopedic Surgery: (LUMBAR SURGERY WITH SUKHJINDER PLACEMENT) - Suicide/Smoking/Psychosocial Hx Smoking History: Never smoked Have you smoked in the past 12 months: No Information on smoking cessation initiated: No Hx Alcohol Use: No Drug/Substance Use Hx: No Substance Use Type: None Review of Systems - Review of Systems Comments:: 12/23/17 17:12 "GENERAL/CONSTITUTIONAL: No fever or chills. No weakness. HEAD, EYES, EARS, NOSE AND THROAT: No change in vision. No ear pain or discharge. No sore throat. CARDIOVASCULAR: No chest pain or shortness of breath. RESPIRATORY: No cough, wheezing, or hemoptysis. GASTROINTESTINAL: No nausea, vomiting, diarrhea or constipation. GENITOURINARY: No dysuria, frequency, or change in urination. MUSCULOSKELETAL: No joint or muscle swelling or pain. No neck or back pain. SKIN: No rash NEUROLOGIC: +Slurred speech. +Left sided facial droop. No headache, vertigo, loss of consciousness. ENDOCRINE: No increased thirst. No abnormal weight change. HEMATOLOGIC/LYMPHATIC: No anemia, easy bleeding, or history of blood clots. ALLERGIC/IMMUNOLOGIC: No hives or skin allergy. " *Physical Exam - Vital Signs Last Vital Signs Temp Pulse Resp BP Pulse Ox 97.6 F 63 14 168/78 93 L 12/23/17 15:35 12/23/17 15:35 12/23/17 15:35 12/23/17 15:35 12/23/17 15:35 - Physical Exam Comments: 12/23/17 17:12 "GENERAL: Awake, alert, and fully oriented, in no acute distress. HEAD: No signs of trauma EYES: PERRLA, EOMI, sclera anicteric, conjunctiva clear ENT: Auricles normal inspection, hearing grossly normal, nares patent, oropharynx clear without exudates. Moist mucosa NECK: Nontender, no stepoffs, Normal ROM, supple, no lymphadenopathy, JVD, or masses LUNGS: Breath sounds equal, clear to auscultation bilaterally. No wheezes, and no crackles HEART: Regular rate and rhythm, normal S1 and S2, no murmurs, rubs or gallops ABDOMEN: Soft, nontender, normoactive bowel sounds. No guarding, no rebound. No masses EXTREMITIES: Normal range of motion, no edema. No clubbing or cyanosis. No cords, erythema, or tenderness NEUROLOGICAL: + L facial droop, +L pronator drift, +LLE weakness, sensation intact throughout SKIN: Warm, Dry, normal turgor, no rashes or lesions noted. " NIH Stroke Scale - Last Known Well Date/Time & Onset Date Last Known Well: 12/23/17 Time Last Known Well: 13:45 - Initial Evaluation Level of consciousness: Alert Ask patient the month and their age: Answers both correctly Ask patient to open & close eyes; make fist and let go: Obeys both correctly Best gaze (horizontal eye movement): Normal Visual field testing: No visual field loss Facial paresis (Show teeth/raise eyebrows/close eyes tight): Minor paralysis ( flattened nasolabial fold, asymmetry on smiling) Motor Function: Left Arm: Drift Motor Function: Right Arm: Normal (extends arm 90 (or 45) degrees for 10 seconds without drift Motor Function: Left Leg: Drift Motor Function: Right Leg: Normal (extends leg 30 degrees for 5 seconds without drift) Limb Ataxia: No ataxia Sensory(Use pinprick test arms,legs,trunk,face/side to side): Normal Best language (Describe picture, name items, read sentences): No Aphasia Dysarthria (read several words): Mild to moderate slurring of words Extinction and Inattention: No abnormality - Total Score NIH Stroke Scale Score: 4 Critical Care Time/MDM Note Total Critical Care Time: 45 Critical Care Statement: The care of this patient involved high complexity decision making to prevent further life threatening deterioration of the patient 's condition and/or to evaluate & treat vital organ system(s) failure or risk of failure. - Medical Decision Making Note: 12/23/17 17:14 82 F with acute onset L side weakness and facial droop. Concerning for CVA. Pt is within window for tPA, but given anticoagulation on xarelto, may not be candidate for tPA. - CTH obtained - no ICH seen - EKG - Labs - Neuro consult I spoke with Dr. Lauren, who recommends deferring tPA given anticoagulated status. 12/23/17 18:00 Labs wnl Will admit to hospitalist for further stroke w/u 12/23/17 19:[address] Wetzel Discharge Disposition - Diagnosis Cerebrovascular accident (CVA) - Discharge Dispostion Last Admission D/C Date: 12/15/17 Admit: Yes - Referrals - Patient Instructions - Post Discharge Activity - Transfer to Acute Care Facility Transfer comment: 12/23/17 19:32 I, Dr. Darshan Zazueta MD, attest that this document has been prepared under my direction and personally reviewed by me in its entirety. I further attest, that it accurately reflects all work, treatment, procedures and medical decision -making performed by me.
[2017-12-23 16:44] LABS: ALBUMIN 2.8 g/dl (3.4-5.0); ANION GAP 9 (8-16); BLOOD UREA NITROGEN 17 mg/dL (7-18); CALCIUM 8.8 mg/dL (8.5-10.1); CHLORIDE 107 mmol/L (98-107); CO2 22 mmol/L (21-32); GLUCOSE,RANDOM 97 mg/dL (74-106); SODIUM 138 mmol/L (136-145)
[2017-12-23 16:47] LABS: ALK PHOS 128 U/L (45-117); BILIRUBIN,TOTAL 0.3 mg/dL (0.2-1.0); CHOLESTEROL 200 mg/dL (50-200); CREATININE 1.2 mg/dL (0.55-1.02); HDL CHOLESTEROL 31 mg/dL (40-60); LDL CHOLESTEROL (ONLY SJRH) 128 mg/dL (5-100); SGPT/ALT 18 U/L (12-78); TOT PROT 7.3 g/dl (6.4-8.2); TRIGLYCERIDES 403 mg/dL (35-160)
[2017-12-23 17:03] LABS: POTASSIUM 4.6 mmol/L (3.5-5.1); SGOT/AST 22 U/L (15-37)
[2017-12-23 17:16] LABS: URINE APPEARANCE CLEAR; URINE BILIRUBIN NEGATIVE (<2.0 mg/dL); URINE BLOOD NEGATIVE (NEGATIVE); URINE COLOR LTYELLOW; URINE GLUCOSE (UA) NEGATIVE (NEGATIVE); URINE KETONE NEGATIVE (NEGATIVE); URINE LEUK ESTERASE NEGATIVE (NEGATIVE); URINE NITRITE NEGATIVE (NEGATIVE); URINE PROTEIN NEGATIVE (NEGATIVE); URINE UROBILINOGEN NEGATIVE mg/dL (0.2-1.0)
--- NOTE | 2017-12-23 18:09 | CONSULT ---
Consult - text type - Consultation Consultation Note: Neurology History of Present Illness - History of Present Illness "The patient is a 82 year old female, from [facility], with a significant PMH of hypertension, COPD, RA, anemia, hypothyroidism, UTI, dementia, GERD, breast cancer, who presents to the emergency department with slurred speech and left sided facial droop reportedly at 2:30 pm. [facility] the patient was last seen normal at 1:45 pm. At 2:30, [place] staff found pt had developed a facial droop and had difficulty raising her left arm. The patient states that at around this time, she noticed her speech started to slur. She was brought to [facility] and I was contacted by the ER. CT head was completed and patient on Xarelto and therefore not TPA candidate. She was seen by me in the ER and did have focal deficits including slurred speech, L sided weakness. We were joined at the bedside by her daughter, Bev who stated she is the health care proxy, and son in law. I had an extensive conversation with the patient and family regarding pathology of CVA, pathophysiology, possible etiology, CT results, and possible treatment options. Discussed with them thrombectomy as possible intervention and had spoken cerebrovascular specialist on the phone as well. After half hour conversation discussing risks, benefits, alternatives, the family and patient decided to forgo endovascular intervention. The patient has been DNR/DNI in the past and is currently wheelchair bound at [place] due to rhematoid arthritis and thus there was question of what would be salvaged in terms of motor function. They felt speech may improve with therapy and concern for endovascular procedure risk including anesthesia were very high for them. Discussed with them further treatment options while admitted at [facility] and workup that would be needed and they were in agreement. Past History - Past Medical History Allergies/Adverse Reactions: Allergies Allergy/AdvReac Type Severity Reaction Status Date / Time Penicillins Allergy Verified 12/23/17 15:54 Sulfa (Sulfonamide Allergy Verified 12/23/17 15:54 Antibiotics) Home Medications: Ambulatory Orders Acetaminophen 650 mg PO PRN 12/08/17 Acidoph/L.bulg/Bif.b/S.thermop [Leonela-Bid Caplet] 1 each PO BID 12/08/17 Atenolol [Tenormin -] 50 mg PO DAILY 12/08/17 Docusate Sodium 200 mg PO HS 12/08/17 Duloxetine HCl [Cymbalta] 60 mg PO DAILY 12/08/17 Ferrous Sulfate 325 mg PO BID 12/08/17 Fluconazole 200 mg PO DAILY 12/08/17 Gabapentin [Neurontin] 100 mg PO TID 12/08/17 Lansoprazole [Prevacid] 30 mg PO DAILY 12/08/17 Leflunomide [Arava -] 10 mg PO DAILY 12/08/17 Levothyroxine [Synthroid -] 112 mcg PO DAILY 12/08/17 Lisinopril [Prinivil] 10 mg PO DAILY 12/08/17 Loratadine [Claritin] 10 mg PO DAILY 12/08/17 Mag Hydrox/Aluminum Hyd/Simeth [Maalox Advanced Suspension] 30 ml PO TID PRN 05/19 Magnesium Hydroxide [Milk of Magnesia] 30 ml PO DAILY PRN 12/08/17 Melatonin 3 mg PO HS 12/08/17 Mirtazapine 22.5 mg PO DAILY 12/08/17 Olopatadine HCl [Patanol] 1 drop OU DAILY 12/08/17 Oxybutynin Chloride [Oxybutynin Chloride ER] 5 mg PO DAILY 12/08/17 Rivaroxaban [Xarelto -] 15 mg PO HS 12/08/17 Sennosides [Senna -] 1 tab PO HS 12/08/17 Mirtazapine [Remeron -] 30 mg PO DAILY 12/23/17 Sennosides [Senna] 2 tab PO HS 12/23/17 Anemia: Yes Cancer: Yes (Breast CA) COPD: Yes DVT: Yes Dementia: Yes GI Disorders: Yes (GERD) HTN: Yes Psychiatric Problems: Yes (depression,) Thyroid Disease: Yes (Hypothyroid) - Surgical History Orthopedic Surgery: (LUMBAR SURGERY WITH SUKHJINDER PLACEMENT) - Suicide/Smoking/Psychosocial Hx Smoking History: Never smoked Have you smoked in the past 12 months: No Information on smoking cessation initiated: No Hx Alcohol Use: No Drug/Substance Use Hx: No Substance Use Type: None Review of Systems "GENERAL/CONSTITUTIONAL: No fever or chills. No weakness. HEAD, EYES, EARS, NOSE AND THROAT: No change in vision. No ear pain or discharge. No sore throat. CARDIOVASCULAR: No chest pain or shortness of breath. RESPIRATORY: No cough, wheezing, or hemoptysis. GASTROINTESTINAL: No nausea, vomiting, diarrhea or constipation. GENITOURINARY: No dysuria, frequency, or change in urination. MUSCULOSKELETAL: No joint or muscle swelling or pain. No neck or back pain. SKIN: No rash NEUROLOGIC: +Slurred speech. +Left sided facial droop. No headache, vertigo, loss of consciousness. ENDOCRINE: No increased thirst. No abnormal weight change. HEMATOLOGIC/LYMPHATIC: No anemia, easy bleeding, or history of blood clots. ALLERGIC/IMMUNOLOGIC: No hives or skin allergy. *Physical Exam Vital Signs Period Temp Pulse Resp BP Sys/Banuelos Pulse Ox Last 24 Hr 97.6 F 63-66 14-20 168-178/77-79 93-98 "GENERAL: Awake, alert, and fully oriented, in no acute distress. HEAD: No signs of trauma EYES: PERRLA, EOMI, sclera anicteric, conjunctiva clear ENT: Auricles normal inspection, hearing grossly normal, nares patent, oropharynx clear without exudates. Moist mucosa NECK: Nontender, no stepoffs, Normal ROM, supple, no lymphadenopathy, JVD, or masses LUNGS: Breath sounds equal, clear to auscultation bilaterally. No wheezes, and no crackles HEART: Regular rate and rhythm, normal S1 and S2, no murmurs, rubs or gallops ABDOMEN: Soft, nontender, normoactive bowel sounds. No guarding, no rebound. No masses EXTREMITIES: Normal range of motion, no edema. No clubbing or cyanosis. No cords, erythema, or tenderness NEUROLOGICAL: + L facial droop, +L pronator drift, +LLE weakness 3-/5, sensation intact throughout, LUE 3+/5 SKIN: Warm, Dry, normal turgor, no rashes or lesions noted Gait deferred CBCD WBC 8.1 K/mm3 (4.0-10.0) 12/23/17 15:43 RBC 3.17 M/mm3 (3.60-5.2) L 12/23/17 15:43 Hgb 9.3 GM/dL (10.7-15.3) L 12/23/17 15:43 Hct 28.4 % (32.4-45.2) L 12/23/17 15:43 MCV 89.6 fl (80-96) 04/24/18 15:43 MCHC 32.6 g/dl (32.0-36.0) 12/23/17 15:43 RDW 14.1 % (11.6-15.6) 12/23/17 15:43 Plt Count 300 K/MM3 (134-434) D 12/23/17 15:43 MPV 9.8 fl (7.5-11.1) 12/23/17 15:43 CMP Sodium 138 mmol/L (136-145) 12/23/17 15:43 Potassium 4.6 mmol/L (3.5-5.1) 12/23/17 15:43 Chloride 107 mmol/L (98-107) 12/23/17 15:43 Carbon Dioxide 22 mmol/L (21-32) 12/23/17 15:43 Anion Gap 9 (8-16) 12/23/17 15:43 BUN 17 mg/dL (7-18) 12/23/17 15:43 Creatinine 1.2 mg/dL (0.55-1.02) H 12/23/17 15:43 Creat Clearance w eGFR 43.01 (>60) 12/23/17 15:43 Calcium 8.8 mg/dL (8.5-10.1) 12/23/17 15:43 Total Bilirubin 0.3 mg/dL (0.2-1.0) 12/23/17 15:43 AST 22 U/L (15-37) 12/23/17 15:43 ALT 18 U/L (12-78) 12/23/17 15:43 Alkaline Phosphatase 128 U/L (45-117) H 12/23/17 15:43 Total Protein 7.3 g/dl (6.4-8.2) 12/23/17 15:43 Albumin 2.8 g/dl (3.4-5.0) L 12/23/17 15:43 CT head reviewed PLAN: 82 year old female, from [facility], with a significant PMH of hypertension, COPD , RA, anemia, hypothyroidism, UTI, dementia, GERD, breast cancer, who presents to the emergency department with slurred speech and left sided facial droop possibly with R MCA stroke. CT head was completed and patient on Xarelto and therefore not TPA candidate. Discussed with them thrombectomy as possible intervention and had spoken cerebrovascular specialist on the phone as well. After half hour conversation discussing risks, benefits, alternatives, the family and patient decided to forgo endovascular intervention Patient to remain in trendelenberg to allow cerebral perfusion Allow permissive HTN, up to 220/110 for 24hrs Hold antihypertensives for 24 hrs Cardiology consult, telemetry monitoring RE-eval AC if patient had vascular event on Xarelto MRI brain Carotid Doppler Echo Check LDL, statin therapy Speech/swallow eval (appeared to pass bedside swallow) Physcial therapy Likely to require rehab at [facility] DVT ppx Discussed with patient Discussed with ER Discussed with family Total Critical Care Time: 80
--- NOTE | 2017-12-23 18:19 | HP ---
CHIEF COMPLAINT: Facial droop, slurred speech PCP: Dr. Ibarra at [facility] HISTORY OF PRESENT ILLNESS: 82 year-old female from [facility] on [address] with a PMH significant for HTN, DVT on Xarelto, COPD, RA, anemia, hypothyroidism, dementia, GERD, breast cancer, and s/ p spinal surgery with instrumentation, who presents to the ED with slurred speech and left sided facial droop possibly with R MCA stroke. As per the shelter staff the patient was last seen normal at 1:45 pm. At 2:30, [place] staff found pt had developed a facial droop and had difficulty raising her left arm. The patient states that at around this time, she noticed her speech started to slur. She was brought to the ED. She was seen and evaluated by the ED staff and by neurologist Dr. Lauren. Patient is on Xarelto and decision was made that she was not a candidate for TPA. Decision also made by patient, family , and providers to forgo endovascular intervention. ER course was notable for: (1) CT head: no acute process (2) BP 178/79 Recent Travel: No PAST MEDICAL HISTORY: Hypertension h/o DVT on Xarelto COPD Rheumatoid arthritis Anemia Hypothyroidism GERD Breast cancer Dementia PAST SURGICAL HISTORY: Spinal surgery with instrumentation x 3 years ([facility]) Left lumpectomy Social History: Smoking: no Alcohol: no Drugs: no Family History: Allergies Penicillins Allergy (Verified 12/23/17 15:54) Sulfa (Sulfonamide Antibiotics) Allergy (Verified 12/23/17 15:54) HOME MEDICATIONS: Home Medications Medication Instructions Recorded Acetaminophen 650 mg PO PRN 12/08/17 Acidoph/L.bulg/Bif.b/S.thermop 1 each PO BID 12/08/17 [Leonela-Bid Caplet] Atenolol [Tenormin -] 50 mg PO DAILY 12/08/17 Docusate Sodium 200 mg PO HS 12/08/17 Duloxetine HCl [Cymbalta] 60 mg PO DAILY 12/08/17 Ferrous Sulfate 325 mg PO BID 12/08/17 Fluconazole 200 mg PO DAILY 12/08/17 Gabapentin [Neurontin] 100 mg PO TID 12/08/17 Lansoprazole [Prevacid] 30 mg PO DAILY 12/08/17 Leflunomide [Arava -] 10 mg PO DAILY 12/08/17 Levothyroxine [Synthroid -] 112 mcg PO DAILY 12/08/17 Lisinopril [Prinivil] 10 mg PO DAILY 12/08/17 Loratadine [Claritin] 10 mg PO DAILY 12/08/17 Mag Hydrox/Aluminum Hyd/Simeth 30 ml PO TID PRN 12/08/17 [Maalox Advanced Suspension] Magnesium Hydroxide [Milk of 30 ml PO DAILY PRN 12/08/17 Magnesia] Melatonin 3 mg PO HS 12/08/17 Mirtazapine 22.5 mg PO DAILY 12/08/17 Olopatadine HCl [Patanol] 1 drop OU DAILY 12/08/17 Oxybutynin Chloride [Oxybutynin 5 mg PO DAILY 12/08/17 Chloride ER] Rivaroxaban [Xarelto -] 15 mg PO HS 12/08/17 Sennosides [Senna -] 1 tab PO HS 12/08/17 Mirtazapine [Remeron -] 30 mg PO DAILY 12/23/17 Sennosides [Senna] 2 tab PO HS 12/23/17 REVIEW OF SYSTEMS: see HPI; other ROS negative PHYSICAL EXAMINATION Vital Signs - 24 hr 12/23/17 12/23/17 12/23/17 15:35 16:17 16:49 Temperature 97.6 F Pulse Rate 63 Pulse Rate [ 66 65 Left Radial] Respiratory 14 20 20 Rate Blood Pressure 168/78 Blood Pressure 178/79 175/77 [Right Arm] O2 Sat by Pulse 93 L 98 98 Oximetry (%) GENERAL: Awake, alert, and fully oriented. Name, [place], November,. HEAD: Normal with no signs of trauma. EYES: Pupils equal, round and reactive to light, arcus senilis; extraocular movements intact, sclera anicteric EARS, NOSE, THROAT: Ears normal, nares patent, oropharynx clear without exudates. Moist mucous membranes. NECK: Normal range of motion, supple without lymphadenopathy, JVD, or masses. LUNGS: Breath sounds equal, clear to auscultation bilaterally. No wheezes, and no crackles. No accessory muscle use. HEART: Regular rate and rhythm, normal S1 and S2 without murmur, rub or gallop. ABDOMEN: Soft, nontender, not distended, normoactive bowel sounds, no guarding, no rebound, no masses. No hepatomegaly or splenomegaly. MUSCULOSKELETAL: Normal range of motion at all joints. No bony deformities or tenderness. No CVA tenderness. UPPER EXTREMITIES: 2+ pulses, warm, well-perfused. No cyanosis. No clubbing. No peripheral edema. LOWER EXTREMITIES: 2+ pulses, warm, well-perfused. No calf tenderness. No peripheral edema. NEUROLOGICAL: Mild left sided facial droop, speech dysarthric (not baseline per family), left-sided neglect; LLE weakness PSYCHIATRIC: Cooperative. Good eye contact. Appropriate mood and affect. SKIN: Warm, dry, normal turgor. Stage II pressure ulcer left buttock, 4cm L x 4cm W x 0.5cm D Laboratory Results - last 24 hr 12/23/17 12/23/17 12/23/17 15:43 15:43 15:43 WBC 8.1 RBC 3.17 L Hgb 9.3 L Hct 28.4 L MCV 89.6 MCH 29.2 MCHC 32.6 RDW 14.1 Plt Count 300 D MPV 9.8 Neutrophils % 69.5 Lymphocytes % 17.1 Monocytes % 8.3 Eosinophils % 4.2 D Basophils % 0.9 PT with INR 13.80 H INR 1.22 H Sodium 138 Potassium 4.6 Chloride 107 Carbon Dioxide 22 Anion Gap 9 BUN 17 Creatinine 1.2 H Creat Clearance w eGFR 43.01 POC Glucometer Random Glucose 97 Calcium 8.8 Total Bilirubin 0.3 AST 22 ALT 18 Alkaline Phosphatase 128 H Creatine Kinase 33 Troponin I < 0.02 Total Protein 7.3 Albumin 2.8 L Triglycerides 403 H Cholesterol 200 Total LDL Cholesterol 128 H HDL Cholesterol 31 L Urine Color Urine Appearance Urine pH Ur Specific [place] Urine Protein Urine Glucose (UA) Urine Ketones Urine Blood Urine Nitrite Urine Bilirubin Urine Urobilinogen Ur Leukocyte Esterase Blood Type Antibody Screen 12/23/17 12/23/17 12/23/17 15:43 16:20 17:06 WBC RBC Hgb Hct MCV MCH MCHC RDW Plt Count MPV Neutrophils % Lymphocytes % Monocytes % Eosinophils % Basophils % PT with INR INR Sodium Potassium Chloride Carbon Dioxide Anion Gap BUN Creatinine Creat Clearance w eGFR POC Glucometer 114.52252 Random Glucose Calcium Total Bilirubin AST ALT Alkaline Phosphatase Creatine Kinase Troponin I Total Protein Albumin Triglycerides Cholesterol Total LDL Cholesterol HDL Cholesterol Urine Color Ltyellow Urine Appearance Clear Urine pH 6.0 Ur Specific [place] 1.009 Urine Protein Negative Urine Glucose (UA) Negative Urine Ketones Negative Urine Blood Negative Urine Nitrite Negative Urine Bilirubin Negative Urine Urobilinogen Negative Ur Leukocyte Esterase Negative Blood Type B POSITIVE Antibody Screen Negative ASSESSMENT/PLAN 82 year-old female from [facility] on [address] with a PMH significant for HTN, h/o DVT on Xarelto, COPD, RA, anemia, hypothyroidism, recurrent UTIs, GERD, breast cancer, dementia, and s/p spinal surgery with instrumentation. Placed on observation for possible right MCA stroke CVA --CT head negative --surgical instrumentation makes MRI unlikely --per Dr. Lauren, hold anticoagulation for 24 hours, get cardiology input; presumably a CVA while on Xarelto, will have to assess a/c options --cardiology consult requested Hypertension --hold all anti-hypertensives, permissive hypertension up to 220/110 for 24 hours h/o DVT --hold Xarelto for 24 hours COPD --duonebs PRN Rheumatoid athritis --holding PO meds until swallow evaluation Anemia --h/h stable Hypothyroidism --holding PO meds GERD --protonix IV Breast cancer --stable Dementia --at baseline per family FEN Fluids: NS @ 42mL/hr Electrolytes: replete as indicated Nutrition: NPO until swallow evaluation DVT prophylaxis: subq heparin Physical therapy Dispo: continues to require observation. Full code. Visit type - Emergency Visit Emergency Visit: Yes ED Registration Date: 12/23/17 Care time: The patient presented to the Emergency Department on the above date and was hospitalized for further evaluation of their emergent condition. - New Patient This patient is new to me today: Yes Date on this admission: 12/24/17 - Critical Care Critical Care patient: No Hospitalist Screening - Colonoscopy Questionnaire Colonoscopy Questionnaire: Colonoscopy Questionnaire - Patient: 50 - 75 years old and never had a screening colonoscopy: Unknown History of colon or rectal polyps, or CA: Unknown History of IBD, Crohn's disease or UC: Unknown History of abdominal radiation therapy as a child: Unknown - Relative: 1 with colon or rectal CA, or polyps at age 60 or younger: Unknown Colon or rectal CA diagnosed at age 45 or younger: Unknown Multiple relatives with colon or rectal CA: Unknown - Outcome: Screening Result: Negative Screen
[2017-12-23] MEDS ORDERED: LABETALOL HCL 5 MG/1 ML (100MG/20 ML VIAL) IVPUSH PRN (21:35)
[2017-12-23] MEDS ORDERED: hydrALAZINE HCL 20 MG/ML VIAL IVPUSH PRN (21:37)
[2017-12-23] MEDS: HEPARIN NA (PORCINE) 5,000 UNITS/ML 1ML VIAL SQ SCH (23:28)
[2017-12-24] MEDS: HEPARIN NA (PORCINE) 5,000 UNITS/ML 1ML VIAL SQ SCH ×3 (05:01→22:29)
[2017-12-24 06:32] LABS: MEAN PLT VOLUME 10.2 fl (7.5-11.1); RDW 14.4 % (11.6-15.6)
[2017-12-24 06:44] LABS: HEMATOCRIT 28.5 % (32.4-45.2); HEMOGLOBIN 9.4 GM/dL (10.7-15.3); MCH 29.8 pg (25.7-33.7); MCHC 33.1 g/dl (32.0-36.0); PLATELET COUNT 291 K/MM3 (134-434); RBC 3.16 M/mm3 (3.60-5.2)
[2017-12-24 06:45] LABS: ADD RBC MORPHOLOGY YES
[2017-12-24 06:59] LABS: ALBUMIN 2.9 g/dl (3.4-5.0); ANION GAP 6 (8-16); BLOOD UREA NITROGEN 15 mg/dL (7-18); CALCIUM 9.1 mg/dL (8.5-10.1); CHLORIDE 107 mmol/L (98-107); CO2 27 mmol/L (21-32); GLUCOSE,RANDOM 88 mg/dL (74-106); POTASSIUM 4.1 mmol/L (3.5-5.1); SODIUM 140 mmol/L (136-145)
[2017-12-24 07:02] LABS: ALK PHOS 132 U/L (45-117); BILIRUBIN,TOTAL 0.3 mg/dL (0.2-1.0); CREATININE 1.1 mg/dL (0.55-1.02); SGOT/AST 17 U/L (15-37); SGPT/ALT 17 U/L (12-78); TOT PROT 7.2 g/dl (6.4-8.2)
[2017-12-24 07:03] LABS: PHOSPHOROUS 4.1 mg/dL (2.5-4.9)
--- NOTE | 2017-12-24 09:09 | PN ---
Physical Exam: SUBJECTIVE: Patient seen and examined OBJECTIVE: Vital Signs Period Temp Pulse Resp BP Sys/Banuelos Pulse Ox Last 24 Hr 97.6 F-97.8 F 55-66 14-23 152-178/69-85 93-100 GENERAL: The patient is awake, alert, and fully oriented, in no acute distress. HEAD: Normal with no signs of trauma. EYES: PERRL, extraocular movements intact, sclera anicteric, conjunctiva clear. No ptosis. ENT: Ears normal, nares patent, oropharynx clear without exudates, moist mucous membranes. NECK: Trachea midline, full range of motion, supple. LUNGS: Breath sounds equal, clear to auscultation bilaterally, no wheezes, no crackles, no accessory muscle use. HEART: Regular rate and rhythm, S1, S2 without murmur, rub or gallop. ABDOMEN: Soft, nontender, nondistended, normoactive bowel sounds, no guarding, no rebound, no hepatosplenomegaly, no masses. EXTREMITIES: 2+ pulses, warm, well-perfused, no edema. NEUROLOGICAL: Cranial nerves II through XII grossly intact. Normal speech, gait not observed. PSYCH: Normal mood, normal affect. SKIN: Warm, dry, normal turgor, no rashes or lesions noted Laboratory Results - last 24 hr 12/23/17 12/23/17 12/23/17 15:43 15:43 15:43 WBC 8.1 RBC 3.17 L Hgb 9.3 L Hct 28.4 L MCV 89.6 MCH 29.2 MCHC 32.6 RDW 14.1 Plt Count 300 D MPV 9.8 Neutrophils % 69.5 Lymphocytes % 17.1 Monocytes % 8.3 Eosinophils % 4.2 D Basophils % 0.9 PT with INR 13.80 H INR 1.22 H Sodium 138 Potassium 4.6 Chloride 107 Carbon Dioxide 22 Anion Gap 9 BUN 17 Creatinine 1.2 H Creat Clearance w eGFR 43.01 POC Glucometer Random Glucose 97 Calcium 8.8 Phosphorus Magnesium Total Bilirubin 0.3 AST 22 ALT 18 Alkaline Phosphatase 128 H Creatine Kinase 33 Troponin I < 0.02 Total Protein 7.3 Albumin 2.8 L Triglycerides 403 H Cholesterol 200 Total LDL Cholesterol 128 H HDL Cholesterol 31 L Urine Color Urine Appearance Urine pH Ur Specific [place] Urine Protein Urine Glucose (UA) Urine Ketones Urine Blood Urine Nitrite Urine Bilirubin Urine Urobilinogen Ur Leukocyte Esterase Blood Type Antibody Screen 12/23/17 12/23/17 12/23/17 15:43 16:20 17:06 WBC RBC Hgb Hct MCV MCH MCHC RDW Plt Count MPV Neutrophils % Lymphocytes % Monocytes % Eosinophils % Basophils % PT with INR INR Sodium Potassium Chloride Carbon Dioxide Anion Gap BUN Creatinine Creat Clearance w eGFR POC Glucometer [id number] Random Glucose Calcium Phosphorus Magnesium Total Bilirubin AST ALT Alkaline Phosphatase Creatine Kinase Troponin I Total Protein Albumin Triglycerides Cholesterol Total LDL Cholesterol HDL Cholesterol Urine Color Ltyellow Urine Appearance Clear Urine pH 6.0 Ur Specific [place] 1.009 Urine Protein Negative Urine Glucose (UA) Negative Urine Ketones Negative Urine Blood Negative Urine Nitrite Negative Urine Bilirubin Negative Urine Urobilinogen Negative Ur Leukocyte Esterase Negative Blood Type B POSITIVE Antibody Screen Negative 12/23/17 12/24/17 12/24/17 23:39 05:28 05:28 WBC 11.0 H D RBC 3.16 L Hgb 9.4 L Hct 28.5 L MCV 90.0 MCH 29.8 MCHC 33.1 RDW 14.4 Plt Count 291 MPV 10.2 Neutrophils % No Result Required. Lymphocytes % No Result Required. Monocytes % Eosinophils % Basophils % PT with INR INR Sodium Potassium Chloride Carbon Dioxide Anion Gap BUN Creatinine Creat Clearance w eGFR POC Glucometer Random Glucose Calcium Phosphorus Magnesium Total Bilirubin AST ALT Alkaline Phosphatase Creatine Kinase Troponin I < 0.02 < 0.02 Total Protein Albumin Triglycerides Cholesterol Total LDL Cholesterol HDL Cholesterol Urine Color Urine Appearance Urine pH Ur Specific [place] Urine Protein Urine Glucose (UA) Urine Ketones Urine Blood Urine Nitrite Urine Bilirubin Urine Urobilinogen Ur Leukocyte Esterase Blood Type Antibody Screen 12/24/17 12/24/17 05:28 05:28 WBC RBC Hgb Hct MCV MCH MCHC RDW Plt Count MPV Neutrophils % Lymphocytes % Monocytes % Eosinophils % Basophils % PT with INR INR Sodium 140 Potassium 4.1 Chloride 107 Carbon Dioxide 27 Anion Gap 6 L BUN 15 Creatinine 1.1 H Creat Clearance w eGFR 47.55 POC Glucometer Random Glucose 88 Calcium 9.1 Phosphorus 4.1 Magnesium 2.0 Total Bilirubin 0.3 AST 17 ALT 17 Alkaline Phosphatase 132 H Creatine Kinase Troponin I Total Protein 7.2 Albumin 2.9 L Triglycerides Cholesterol Total LDL Cholesterol HDL Cholesterol Urine Color Urine Appearance Urine pH Ur Specific [place] Urine Protein Urine Glucose (UA) Urine Ketones Urine Blood Urine Nitrite Urine Bilirubin Urine Urobilinogen Ur Leukocyte Esterase Blood Type Antibody Screen Active Medications Generic Name Dose Route Start Last Admin Trade Name Freq PRN Reason Stop Dose Admin Atorvastatin Calcium 80 mg 12/24/17 22:00 Lipitor - PO HS HALIE Heparin Sodium (Porcine) 5,000 unit 12/23/17 22:00 12/24/17 05:01 Heparin - SQ 5,000 unit TID HALIE Administration Hydralazine HCl 10 mg 12/23/17 21:37 Apresoline Injection - IVPUSH Q6H PRN HYPERTENSION Sodium Chloride 1,000 mls @ 42 mls/hr 12/23/17 15:45 12/23/17 16:10 Normal Saline - IV 42 mls/hr ASDIR HALIE Administration Labetalol HCl 10 mg 12/23/17 21:35 Normodyne Injection - IVPUSH Q4H PRN HYPERTENSION Non-Formulary Medication 1 drop 12/24/17 10:00 Olopatadine Hcl [Patanol] OU DAILY HALIE ASSESSMENT/PLAN:
--- NOTE | 2017-12-24 09:16 | CONSULT ---
Consultation: CONSULT REQUEST: We have been asked to medically evaluate this patient for ICU/ CC. HISTORY OF PRESENT ILLNESS: Patient is an 82F with history of DVT and afib on xarelto, HTN, COPD, RA, hypothyroidism, COPD, anemia, UTI, dementia, GERD, and breast cancer here today with facial droop and left arm weakness. She was found at her custodial with a facial droop and left arm weakness at 14:30 on . Last known well was 13:45. Patient presented to the ED at 16:36. CT scan showed no bleed. Blood work was unremarkable. TPA was withheld due to patient's age and anticoagulation status. REVIEW OF SYSTEMS: CONSTITUTIONAL: Absent: fever, chills, diaphoresis, generalized weakness CARDIOVASCULAR: Absent: chest pain, palpitations, irregular heart rate, lightheadedness, peripheral edema RESPIRATORY: Absent: cough, shortness of breath, dyspnea with exertion GASTROINTESTINAL: Absent: abdominal pain, nausea, vomiting SKIN: Absent: rash, itching, pallor HEMATOLOGIC/IMMUNOLOGIC: Absent: easy bleeding, easy bruising, lymphadenopathy, frequent infections NEUROLOGIC: Absent: headache, mental status changes, bladder or bowel incontinence Positive: facial droop, left arm weakness PSYCHIATRIC: Absent: anxiety, depression, suicidal or homicidal ideation, hallucinations. PHYSICAL EXAMINATION Vital Signs - 24 hr 12/23/17 12/23/17 12/23/17 15:35 16:17 16:49 Temperature 97.6 F Pulse Rate 63 Pulse Rate [ 66 65 Left Radial] Respiratory 14 20 20 Rate Blood Pressure 168/78 Blood Pressure 178/79 175/77 [Right Arm] O2 Sat by Pulse 93 L 98 98 Oximetry (%) 12/23/17 12/23/17 12/23/17 19:20 19:33 21:00 Temperature Pulse Rate 60 Pulse Rate [ 63 Left Radial] Respiratory 20 14 14 Rate Blood Pressure 152/85 Blood Pressure 153/77 [Right Arm] O2 Sat by Pulse 95 100 Oximetry (%) 12/23/17 12/23/17 12/23/17 21:47 21:51 22:17 Temperature Pulse Rate 60 60 Pulse Rate [ Left Radial] Respiratory 14 Rate Blood Pressure 152/85 Blood Pressure [Right Arm] O2 Sat by Pulse 100 Oximetry (%) 12/24/17 12/24/17 12/24/17 00:00 02:00 06:00 Temperature 97.8 F Pulse Rate 58 L 57 L 55 L Pulse Rate [ Left Radial] Respiratory 22 23 18 Rate Blood Pressure 160/69 160/74 164/76 Blood Pressure [Right Arm] O2 Sat by Pulse Oximetry (%) 12/24/17 08:00 Temperature Pulse Rate Pulse Rate [ Left Radial] Respiratory Rate Blood Pressure Blood Pressure [Right Arm] O2 Sat by Pulse 98 Oximetry (%) GENERAL: Awake, alert, and fully oriented, in no acute distress. HEAD: Normal with no signs of trauma. EYES: Pupils equal, round and reactive to light, extraocular movements intact, sclera anicteric, conjunctiva clear. NECK: Normal range of motion, supple without lymphadenopathy, JVD, or masses. LUNGS: Breath sounds equal, clear to auscultation bilaterally. No wheezes, and no crackles. No accessory muscle use. HEART: Regular rate and rhythm, normal S1 and S2 without murmur, rub or gallop. ABDOMEN: Soft, nontender, not distended, normoactive bowel sounds, no guarding, no rebound, no masses. No hepatomegaly or splenomegaly. UPPER EXTREMITIES: 2+ pulses, warm, well-perfused. No cyanosis. No clubbing. Cap refill <2 seconds. No peripheral edema. LOWER EXTREMITIES: 2+ pulses, warm, well-perfused. No calf tenderness. No peripheral edema. NEUROLOGICAL: Cranial nerves II-XII intact. Left facial droop, 5/5 strength in all extremities. PSYCHIATRIC: Cooperative. Good eye contact. Appropriate mood and affect. Laboratory Results - last 24 hr 12/23/17 12/23/17 12/23/17 15:43 15:43 15:43 WBC 8.1 RBC 3.17 L Hgb 9.3 L Hct 28.4 L MCV 89.6 MCH 29.2 MCHC 32.6 RDW 14.1 Plt Count 300 D MPV 9.8 Neutrophils % 69.5 Lymphocytes % 17.1 Monocytes % 8.3 Eosinophils % 4.2 D Basophils % 0.9 PT with INR 13.80 H INR 1.22 H Sodium 138 Potassium 4.6 Chloride 107 Carbon Dioxide 22 Anion Gap 9 BUN 17 Creatinine 1.2 H Creat Clearance w eGFR 43.01 POC Glucometer Random Glucose 97 Calcium 8.8 Phosphorus Magnesium Total Bilirubin 0.3 AST 22 ALT 18 Alkaline Phosphatase 128 H Creatine Kinase 33 Troponin I < 0.02 Total Protein 7.3 Albumin 2.8 L Triglycerides 403 H Cholesterol 200 Total LDL Cholesterol 128 H HDL Cholesterol 31 L Urine Color Urine Appearance Urine pH Ur Specific [place] Urine Protein Urine Glucose (UA) Urine Ketones Urine Blood Urine Nitrite Urine Bilirubin Urine Urobilinogen Ur Leukocyte Esterase Blood Type Antibody Screen 12/23/17 12/23/17 12/23/17 15:43 16:20 17:06 WBC RBC Hgb Hct MCV MCH MCHC RDW Plt Count MPV Neutrophils % Lymphocytes % Monocytes % Eosinophils % Basophils % PT with INR INR Sodium Potassium Chloride Carbon Dioxide Anion Gap BUN Creatinine Creat Clearance w eGFR POC Glucometer 114.22146 Random Glucose Calcium Phosphorus Magnesium Total Bilirubin AST ALT Alkaline Phosphatase Creatine Kinase Troponin I Total Protein Albumin Triglycerides Cholesterol Total LDL Cholesterol HDL Cholesterol Urine Color Ltyellow Urine Appearance Clear Urine pH 6.0 Ur Specific [place] 1.009 Urine Protein Negative Urine Glucose (UA) Negative Urine Ketones Negative Urine Blood Negative Urine Nitrite Negative Urine Bilirubin Negative Urine Urobilinogen Negative Ur Leukocyte Esterase Negative Blood Type B POSITIVE Antibody Screen Negative 12/23/17 12/24/17 12/24/17 23:39 05:28 05:28 WBC 11.0 H D RBC 3.16 L Hgb 9.4 L Hct 28.5 L MCV 90.0 MCH 29.8 MCHC 33.1 RDW 14.4 Plt Count 291 MPV 10.2 Neutrophils % No Result Required. Lymphocytes % No Result Required. Monocytes % Eosinophils % Basophils % PT with INR INR Sodium Potassium Chloride Carbon Dioxide Anion Gap BUN Creatinine Creat Clearance w eGFR POC Glucometer Random Glucose Calcium Phosphorus Magnesium Total Bilirubin AST ALT Alkaline Phosphatase Creatine Kinase Troponin I < 0.02 < 0.02 Total Protein Albumin Triglycerides Cholesterol Total LDL Cholesterol HDL Cholesterol Urine Color Urine Appearance Urine pH Ur Specific [place] Urine Protein Urine Glucose (UA) Urine Ketones Urine Blood Urine Nitrite Urine Bilirubin Urine Urobilinogen Ur Leukocyte Esterase Blood Type Antibody Screen 12/24/17 12/24/17 05:28 05:28 WBC RBC Hgb Hct MCV MCH MCHC RDW Plt Count MPV Neutrophils % Lymphocytes % Monocytes % Eosinophils % Basophils % PT with INR INR Sodium 140 Potassium 4.1 Chloride 107 Carbon Dioxide 27 Anion Gap 6 L BUN 15 Creatinine 1.1 H Creat Clearance w eGFR 47.55 POC Glucometer Random Glucose 88 Calcium 9.1 Phosphorus 4.1 Magnesium 2.0 Total Bilirubin 0.3 AST 17 ALT 17 Alkaline Phosphatase 132 H Creatine Kinase Troponin I Total Protein 7.2 Albumin 2.9 L Triglycerides Cholesterol Total LDL Cholesterol HDL Cholesterol Urine Color Urine Appearance Urine pH Ur Specific [place] Urine Protein Urine Glucose (UA) Urine Ketones Urine Blood Urine Nitrite Urine Bilirubin Urine Urobilinogen Ur Leukocyte Esterase Blood Type Antibody Screen Active Medications Generic Name Dose Route Start Last Admin Trade Name Freq PRN Reason Stop Dose Admin Atorvastatin Calcium 80 mg 12/24/17 22:00 Lipitor - PO HS HALIE Heparin Sodium (Porcine) 5,000 unit 12/23/17 22:00 12/24/17 05:01 Heparin - SQ 5,000 unit TID HALIE Administration Hydralazine HCl 10 mg 12/23/17 21:37 Apresoline Injection - IVPUSH Q6H PRN HYPERTENSION Sodium Chloride 1,000 mls @ 42 mls/hr 12/23/17 15:45 12/23/17 16:10 Normal Saline - IV 42 mls/hr ASDIR HALIE Administration Labetalol HCl 10 mg 12/23/17 21:35 Normodyne Injection - IVPUSH Q4H PRN HYPERTENSION Non-Formulary Medication 1 drop 12/24/17 10:00 Olopatadine Hcl [Patanol] OU DAILY HALIE ASSESSMENT/PLAN: Patient is an 82F with history of afib and dvt (on xarelto), htn, RA, hypothyroidism, copd, anemia, uti, dementia, GERD, breast cancer here today with ischemic stroke. Not tPA candidate. Currently protecting airway Neuro #Ischemic stroke - Currently protecting airway, symptoms improved. Slight facial droop, no limb involvement at this time - Not tPA candidate due to being outside of 3 hour window, 80, and on xarelto - Permissive hypertension as per neuro - Hydralazine and labetalol PRN - MRI, ECHO, Speech/swallow pending - HOB elevated, monitor - Statin therapy initiated CV - Trop undetectable x3 - No chest pain - Cards on board - Permissive hypertension at this time Respiratory #COPD - Albuterol PRN FEN/GI -Replete as needed -NPO until speech/swallow Dispo -Transfer to tele Visit type - Emergency Visit Emergency Visit: Yes ED Registration Date: 12/23/17 Care time: The patient presented to the Emergency Department on the above date and was hospitalized for further evaluation of their emergent condition. - New Patient This patient is new to me today: Yes Date on this admission: 12/24/17 - Critical Care Critical Care patient: Yes Total Critical Care Time (in minutes): 35 Critical Care Statement: The care of this patient involved high complexity decision making to prevent further life threatening deterioration of the patient 's condition and/or to evaluate & treat vital organ system(s) failure or risk of failure.
[2017-12-24 09:46] LABS: PLATELET ESTIMATE NORMAL
[2017-12-24] MEDS ORDERED: OLOPATADINE HCL OU SCH (10:00)
[2017-12-24] MEDS ORDERED: ALBUTEROL SO4 2.5/IPRATROPIUM 0.5 INH SOL 3 ML VIAL.NEB. NEB PRN ×2 (10:11→21:00)
--- NOTE | 2017-12-24 10:16 | PN ---
Progress Note (short form) - Note Progress Note: Neurology History of Present Illness - History of Present Illness "The patient is a 82 year old female, from [facility], with a significant PMH of hypertension, COPD, RA, anemia, hypothyroidism, UTI, dementia, GERD, breast cancer, who presents to the emergency department with slurred speech and left sided facial droop reportedly at 2:30 pm. As per the custodial staff the patient was last seen normal at 1:45 pm. At 2:30, [facility] staff found pt had developed a facial droop and had difficulty raising her left arm. The patient states that at around this time, she noticed her speech started to slur. She was brought to [facility] and I was contacted by the ER. CT head was completed and patient on Xarelto and therefore not TPA candidate. She was seen by me in the ER and did have focal deficits including slurred speech, L sided weakness. We were joined at the bedside by her daughter, Bev who stated she is the health care proxy, and son in law. I had an extensive conversation with the patient and family regarding pathology of CVA, pathophysiology, possible etiology, CT results, and possible treatment options. Discussed with them thrombectomy as possible intervention and had spoken cerebrovascular specialist on the phone as well. After half hour conversation discussing risks, benefits, alternatives, the family and patient decided to forgo endovascular intervention. 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 They felt speech may improve with therapy and concern for endovascular procedure risk including anesthesia were very high for them. Discussed with them further treatment options while admitted at [facility] and workup that would be needed and they were in agreement. Patient now in ICU under critical care monitoring this AM. Her speech has improved though still with some dysarthria that's mild, slight aphasia. SHe is raising her arms this AM with improved strength though still pronator drift noted on LUE. Daughter at bedside and discussed clinical course and plan. Permissive HTN may have helped with functionality now. Carotid doppler w/o hemodynamic significant stenosis. Can start to gradually reduce BP, maintain < 160/90. On Labetolol. MRI brain ordered. AC held overnight, plan would be to restart possibly tomorrow (48-72hrs) depending on size of infarct. Daughter in agreement. LDL 128, has been started on Lipitor 80mg. Discussed with nurse and ICU resident as well. Active Medications Albuterol/Ipratropium (Duoneb -) 1 amp NEB Q6H PRN PRN Reason: SHORTNESS OF BREATH Atorvastatin Calcium (Lipitor -) 80 mg PO HS HALIE Heparin Sodium (Porcine) (Heparin -) 5,000 unit SQ TID HALIE Last Admin: 12/24/17 05:01 Dose: 5,000 unit Hydralazine HCl (Apresoline Injection -) 10 mg IVPUSH Q6H PRN PRN Reason: HYPERTENSION Sodium Chloride (Normal Saline -) 1,000 mls @ 42 mls/hr IV ASDIR [facility] Last Admin: 12/23/17 16:10 Dose: 42 mls/hr Labetalol HCl (Normodyne Injection -) 10 mg IVPUSH Q4H PRN PRN Reason: HYPERTENSION Non-Formulary Medication (Olopatadine Hcl [Patanol]) 1 drop OU DAILY HALIE Pantoprazole Sodium (Protonix Iv) 40 mg IVPUSH DAILY [facility] *Physical Exam Vital Signs Period Temp Pulse Resp BP Sys/Banuelos Pulse Ox Last 24 Hr 97.6 F-97.8 F 55-66 14-23 152-178/69-85 93-100 "GENERAL: Awake, alert, and fully oriented, in no acute distress. HEAD: No signs of trauma EYES: PERRLA, EOMI, sclera anicteric, conjunctiva clear ENT: Auricles normal inspection, hearing grossly normal, nares patent, oropharynx clear without exudates. Moist mucosa NECK: Nontender, no stepoffs, Normal ROM, supple, no lymphadenopathy, JVD, or masses LUNGS: Breath sounds equal, clear to auscultation bilaterally. No wheezes, and no crackles HEART: Regular rate and rhythm, normal S1 and S2, no murmurs, rubs or gallops ABDOMEN: Soft, nontender, normoactive bowel sounds. No guarding, no rebound. No masses EXTREMITIES: Normal range of motion, no edema. No clubbing or cyanosis. No cords, erythema, or tenderness NEUROLOGICAL: + L facial droop, +L pronator drift, +LLE weakness 3-/5, sensation intact throughout, LUE 4+/5 SKIN: Warm, Dry, normal turgor, no rashes or lesions noted Gait deferred CBCD WBC 11.0 K/mm3 (4.0-10.0) H D 12/24/17 05:28 RBC 3.16 M/mm3 (3.60-5.2) L 12/24/17 05:28 Hgb 9.4 GM/dL (10.7-15.3) L 12/24/17 05:28 Hct 28.5 % (32.4-45.2) L 12/24/17 05:28 MCV 90.0 fl (80-96) 12/24/17 05:28 MCHC 33.1 g/dl (32.0-36.0) 12/24/17 05:28 RDW 14.4 % (11.6-15.6) 12/24/17 05:28 Plt Count 291 K/MM3 (134-434) 12/24/17 05:28 MPV 10.2 fl (7.5-11.1) 12/24/17 05:28 CMP Sodium 140 mmol/L (136-145) 12/24/17 05:28 Potassium 4.1 mmol/L (3.5-5.1) 12/24/17 05:28 Chloride 107 mmol/L (98-107) 12/24/17 05:28 Carbon Dioxide 27 mmol/L (21-32) 12/24/17 05:28 Anion Gap 6 (8-16) L 12/24/17 05:28 BUN 15 mg/dL (7-18) 12/24/17 05:28 Creatinine 1.1 mg/dL (0.55-1.02) H 12/24/17 05:28 Creat Clearance w eGFR 47.55 (>60) 12/24/17 05:28 Calcium 9.1 mg/dL (8.5-10.1) 12/24/17 05:28 Total Bilirubin 0.3 mg/dL (0.2-1.0) 12/24/17 05:28 AST 17 U/L (15-37) 12/24/17 05:28 ALT 17 U/L (12-78) 12/24/17 05:28 Alkaline Phosphatase 132 U/L (45-117) H 12/24/17 05:28 Total Protein 7.2 g/dl (6.4-8.2) 12/24/17 05:28 Albumin 2.9 g/dl (3.4-5.0) L 12/24/17 05:28 CT head reviewed Carotid Doppler without HD significant strenosis PLAN: 82 year old female, from [facility], with a significant PMH of hypertension, COPD , RA, anemia, hypothyroidism, UTI, dementia, GERD, breast cancer, who presents to the emergency department with slurred speech and left sided facial droop possibly with R MCA stroke. CT head was completed and patient on Xarelto and therefore not TPA candidate. Discussed with them thrombectomy as possible intervention and had spoken cerebrovascular specialist on the phone as well. After half hour conversation discussing risks, benefits, alternatives, the family and patient decided to forgo endovascular intervention Patient was in trendelenberg to allow cerebral perfusion Allowed permissive HTN, up to 220/110 for 24hrs, currently 180's Can gradually reduce BP, range < 160/90 Currently in ICU under close monitoring REstart antiHTN medications Cardiology consult pending, telemetry monitoring Consider restart AC tomorrow if small area of CVA, would consider wait until Friday AM (72 hrs) if larger in size, await MRI to visualize MRI brain pending, if cannot obtain, then recheck CT head Started on lipitor 80, LDL 128 Speech/swallow eval Physcial therapy Likely to require rehab at [facility] DVT ppx Discussed with patient Discussed with ICU nurse Discussed with family Total Critical Care Time: 50
[2017-12-24] MEDS ORDERED: hydrALAZINE HCL 20 MG/ML VIAL IVPUSH PRN ×3 (10:25→22:22)
--- NOTE | 2017-12-24 10:28 | PN ---
Physical Exam: SUBJECTIVE: Patient seen and examined OBJECTIVE: Vital Signs Period Temp Pulse Resp BP Sys/Banuelos Pulse Ox Last 24 Hr 97.6 F-97.8 F 55-66 14-23 152-178/69-85 93-100 GENERAL: The patient is awake, alert, and fully oriented, in no acute distress. HEAD: Normal with no signs of trauma. EYES: PERRL, extraocular movements intact, sclera anicteric, conjunctiva clear. No ptosis. ENT: Ears normal, nares patent, oropharynx clear without exudates, moist mucous membranes. NECK: Trachea midline, full range of motion, supple. LUNGS: Breath sounds equal, clear to auscultation bilaterally, no wheezes, no crackles, no accessory muscle use. HEART: Regular rate and rhythm, S1, S2 without murmur, rub or gallop. ABDOMEN: Soft, nontender, nondistended, normoactive bowel sounds, no guarding, no rebound, no hepatosplenomegaly, no masses. EXTREMITIES: 2+ pulses, warm, well-perfused, no edema. NEUROLOGICAL: Cranial nerves II through XII grossly intact. Normal speech, gait not observed. PSYCH: Normal mood, normal affect. SKIN: Warm, dry, normal turgor, no rashes or lesions noted Laboratory Results - last 24 hr 12/23/17 12/23/17 12/23/17 15:43 15:43 15:43 WBC 8.1 RBC 3.17 L Hgb 9.3 L Hct 28.4 L MCV 89.6 MCH 29.2 MCHC 32.6 RDW 14.1 Plt Count 300 D MPV 9.8 Neutrophils % 69.5 Neutrophils % (Manual) Band Neutrophils % Lymphocytes % 17.1 Lymphocytes % (Manual) Monocytes % 8.3 Monocytes % (Manual) Eosinophils % 4.2 D Eosinophils % (Manual) Basophils % 0.9 Basophils % (Manual) Myelocytes % (Man) Promyelocytes % (Man) Blast Cells % (Manual) Nucleated RBC % Metamyelocytes Platelet Estimate PT with INR 13.80 H INR 1.22 H Sodium 138 Potassium 4.6 Chloride 107 Carbon Dioxide 22 Anion Gap 9 BUN 17 Creatinine 1.2 H Creat Clearance w eGFR 43.01 POC Glucometer Random Glucose 97 Calcium 8.8 Phosphorus Magnesium Total Bilirubin 0.3 AST 22 ALT 18 Alkaline Phosphatase 128 H Creatine Kinase 33 Troponin I < 0.02 Total Protein 7.3 Albumin 2.8 L Triglycerides 403 H Cholesterol 200 Total LDL Cholesterol 128 H HDL Cholesterol 31 L Urine Color Urine Appearance Urine pH Ur Specific [place] Urine Protein Urine Glucose (UA) Urine Ketones Urine Blood Urine Nitrite Urine Bilirubin Urine Urobilinogen Ur Leukocyte Esterase Blood Type Antibody Screen 12/23/17 12/23/17 12/23/17 15:43 16:20 17:06 WBC RBC Hgb Hct MCV MCH MCHC RDW Plt Count MPV Neutrophils % Neutrophils % (Manual) Band Neutrophils % Lymphocytes % Lymphocytes % (Manual) Monocytes % Monocytes % (Manual) Eosinophils % Eosinophils % (Manual) Basophils % Basophils % (Manual) Myelocytes % (Man) Promyelocytes % (Man) Blast Cells % (Manual) Nucleated RBC % Metamyelocytes Platelet Estimate PT with INR INR Sodium Potassium Chloride Carbon Dioxide Anion Gap BUN Creatinine Creat Clearance w eGFR POC Glucometer [id number] Random Glucose Calcium Phosphorus Magnesium Total Bilirubin AST ALT Alkaline Phosphatase Creatine Kinase Troponin I Total Protein Albumin Triglycerides Cholesterol Total LDL Cholesterol HDL Cholesterol Urine Color Ltyellow Urine Appearance Clear Urine pH 6.0 Ur Specific [place] 1.009 Urine Protein Negative Urine Glucose (UA) Negative Urine Ketones Negative Urine Blood Negative Urine Nitrite Negative Urine Bilirubin Negative Urine Urobilinogen Negative Ur Leukocyte Esterase Negative Blood Type B POSITIVE Antibody Screen Negative 12/23/17 12/24/17 12/24/17 23:39 05:28 05:28 WBC 11.0 H D RBC 3.16 L Hgb 9.4 L Hct 28.5 L MCV 90.0 MCH 29.8 MCHC 33.1 RDW 14.4 Plt Count 291 MPV 10.2 Neutrophils % No Result Required. Neutrophils % (Manual) 61.0 Band Neutrophils % 0.0 Lymphocytes % No Result Required. Lymphocytes % (Manual) 20.0 Monocytes % Monocytes % (Manual) 10 Eosinophils % Eosinophils % (Manual) 8.0 H Basophils % Basophils % (Manual) 1.0 Myelocytes % (Man) 0 Promyelocytes % (Man) 0 Blast Cells % (Manual) 0 Nucleated RBC % 0 Metamyelocytes 0 Platelet Estimate Normal PT with INR INR Sodium Potassium Chloride Carbon Dioxide Anion Gap BUN Creatinine Creat Clearance w eGFR POC Glucometer Random Glucose Calcium Phosphorus Magnesium Total Bilirubin AST ALT Alkaline Phosphatase Creatine Kinase Troponin I < 0.02 < 0.02 Total Protein Albumin Triglycerides Cholesterol Total LDL Cholesterol HDL Cholesterol Urine Color Urine Appearance Urine pH Ur Specific [place] Urine Protein Urine Glucose (UA) Urine Ketones Urine Blood Urine Nitrite Urine Bilirubin Urine Urobilinogen Ur Leukocyte Esterase Blood Type Antibody Screen 12/24/17 12/24/17 05:28 05:28 WBC RBC Hgb Hct MCV MCH MCHC RDW Plt Count MPV Neutrophils % Neutrophils % (Manual) Band Neutrophils % Lymphocytes % Lymphocytes % (Manual) Monocytes % Monocytes % (Manual) Eosinophils % Eosinophils % (Manual) Basophils % Basophils % (Manual) Myelocytes % (Man) Promyelocytes % (Man) Blast Cells % (Manual) Nucleated RBC % Metamyelocytes Platelet Estimate PT with INR INR Sodium 140 Potassium 4.1 Chloride 107 Carbon Dioxide 27 Anion Gap 6 L BUN 15 Creatinine 1.1 H Creat Clearance w eGFR 47.55 POC Glucometer Random Glucose 88 Calcium 9.1 Phosphorus 4.1 Magnesium 2.0 Total Bilirubin 0.3 AST 17 ALT 17 Alkaline Phosphatase 132 H Creatine Kinase Troponin I Total Protein 7.2 Albumin 2.9 L Triglycerides Cholesterol Total LDL Cholesterol HDL Cholesterol Urine Color Urine Appearance Urine pH Ur Specific [place] Urine Protein Urine Glucose (UA) Urine Ketones Urine Blood Urine Nitrite Urine Bilirubin Urine Urobilinogen Ur Leukocyte Esterase Blood Type Antibody Screen Active Medications Generic Name Dose Route Start Last Admin Trade Name Freq PRN Reason Stop Dose Admin Albuterol/Ipratropium 1 amp 12/24/17 10:11 Duoneb - NEB Q6H PRN SHORTNESS OF BREATH Atorvastatin Calcium 80 mg 12/24/17 22:00 Lipitor - PO HS HALIE Heparin Sodium (Porcine) 5,000 unit 12/23/17 22:00 12/24/17 05:01 Heparin - SQ 5,000 unit TID HALIE Administration Hydralazine HCl 10 mg 12/24/17 10:25 Apresoline Injection - IVPUSH Q6H PRN HYPERTENSION Sodium Chloride 1,000 mls @ 42 mls/hr 12/23/17 15:45 12/23/17 16:10 Normal Saline - IV 42 mls/hr ASDIR HALIE Administration Labetalol HCl 10 mg 12/23/17 21:35 Normodyne Injection - IVPUSH Q4H PRN HYPERTENSION Non-Formulary Medication 1 drop 12/24/17 10:00 Olopatadine Hcl [Patanol] OU DAILY HALIE Pantoprazole Sodium 40 mg 12/24/17 10:30 Protonix Iv IVPUSH DAILY [facility] ASSESSMENT/PLAN:
--- NOTE | 2017-12-24 10:29 | PN ---
Teaching Attending Note Name of Resident: Tushar Higuera ATTENDING PHYSICIAN STATEMENT I saw and evaluated the patient. I reviewed the resident's note and discussed the case with the resident. I agree with the resident's findings and plan as documented. SUBJECTIVE: Pt seen and examined in the ICU. Briefly, 82yo female with h/o HTN, hypothyroidism, COPD, breast ca, h/o DVT on xarelto who presented with left arm weakness, left facial droop and dysarthria. Deemed not a tPA candidate by neurology as she was on anticoagulation, transferred to the ICU for further monitoring. Today with improvement in left arm strength, still with left sided facial droop and dysarthria but improving. Denies headache, nausea. No shortness of breath or chest pain. OBJECTIVE: Last Vital Signs Temp Pulse Resp BP Pulse Ox 97.8 F 55 L 18 164/76 98 12/24/17 02:00 12/24/17 06:00 12/24/17 06:00 12/24/17 06:00 12/24/17 08:00 Intake & Output 12/21/17 12/22/17 12/23/17 12/24/17 23:59 23:59 23:59 23:59 Intake Total 126 260 Output Total 300 Balance -174 260 Weight 28.35 kg Gen: NAD at rest, left facial droop Heart: RRR Lung: decreased breath sounds at the bases Abd: soft, nontender Ext: no edema CBC, BMP 12/24/17 05:28 12/24/17 05:28 Active Medications Albuterol/Ipratropium (Duoneb -) 1 amp NEB Q6H PRN PRN Reason: SHORTNESS OF BREATH Atorvastatin Calcium (Lipitor -) 80 mg PO HS [facility] Heparin Sodium (Porcine) (Heparin -) 5,000 unit SQ TID [facility] Last Admin: 12/24/17 05:01 Dose: 5,000 unit Hydralazine HCl (Apresoline Injection -) 10 mg IVPUSH Q6H PRN PRN Reason: HYPERTENSION Sodium Chloride (Normal Saline -) 1,000 mls @ 42 mls/hr IV ASDIR [facility] Last Admin: 12/23/17 16:10 Dose: 42 mls/hr Labetalol HCl (Normodyne Injection -) 10 mg IVPUSH Q4H PRN PRN Reason: HYPERTENSION Non-Formulary Medication (Olopatadine Hcl [Patanol]) 1 drop OU DAILY HALIE Pantoprazole Sodium (Protonix Iv) 40 mg IVPUSH DAILY HALIE ASSESSMENT AND PLAN: Acute CVA LV Sysotlic/Diastolic Dysfunction Pulmonary HTN Hyperlipidemia HTN Breast Ca COPD Rheumatoid Arthritis h/o Spinal Surgery with instrumentation Hypothyroidism h/o DVT - neuro checks - allow permissive hypertension - for MRI brain - statin - echocardiogram - rehab/PT eval - anticoagulation per neurology - telemetry monitoring
[2017-12-24] MEDS ORDERED: PANTOPRAZOLE SODIUM 40 MG VIAL IVPUSH SCH (10:30)
--- NOTE | 2017-12-24 12:08 | CONSULT ---
Admitting History and Physical - Primary Care Physician PCP: Theresa Mcwilliams - Admission History of Present Illness: Patient is an 82F with history of afib and dvt (on xarelto), htn, RA, hypothyroidism, copd, anemia, uti, dementia, GERD, breast cancer admitted with left left arm weakness, left facial droop and dysarthria sec to ischemic stroke. Reported improvement in left arm strength, still with left sided facial droop and dysarthria. NPO. Seen by me during recent admission for UTI ,12/12/17, at which time she was not oriented, flat affect, oral dryness. History Source: Patient, Medical Record Limitations to Obtaining History: No Limitations - Past Medical History Renal/: Yes: UTI. No: Renal Failure, Renal Inusuff, BPH, Cancer, Hematuria, Hemodialysis, Neurogenic Bladder, Renal Calculi, Other Heme/Onc: Yes: Cancer (breast cancer) Rheumatology: Yes: Rheumatoid Arthritis. 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 History of Recent Travel: No History - Admission Reason For Visit: CEREBROVASCULAR ACCIDENT (CVA) - Diagnostics X-ray: Report Reviewed CT Scan: Report Reviewed - General Mental Status: Alert and Oriented, Awake and Alert, Able to Follow Commands Attention: Intact Ability to Follow Directions: Excellent Head/Neck Control: WFL - Hearing Hearing: Normal Speech Evaluation - Communication Primary Language: [place] Communication: Yes: Dysarthria Oral Expression Ability: Yes: Mild Impairment - Speech Production Able to Make Needs Known: Yes: WNL Intelligibility: Yes: Mildly Impaired - Speech Characteristics Voice Loudness: Normal Voice Pitch: Yes: Normal Voice Phonatory-based Quality: Yes: Normal Speech Pattern: Normal Nasal Resonance: Normal Articulation: Yes: Imprecise (mild) - Language/Auditory Comprehension Follows: Yes: 2 Stage Simple Commands - Language/Verbal Expression Able to Respond to Simple Queries: Yes: WNL Able to Communicate Wants and Needs: Yes: WNL Functional Communication Status: Yes: WNL - Swallow Evaluation/Bedside Assessment Current Nutritional Intake: NPO Oral Secretions: Yes: WFL Dentition: Yes: Adequate Facial Symmetry at Rest: Facial Droop Left Facial Symmetry on Retraction: Facial Droop Left Pucker Lips: Droops Left Smile: Droops Left Lingual Movement: Symmetric Lingual Speed of Movement: Normal Lingual Movement Strgth Against Opposition: Normal Lingual Movement Characteristics: Normal Velopharyngeal Movement: Normal Laryngeal Elevation: WFL Laryngeal Movement: Able to Palpate Rate of Intake: WFL Bolus Size: WFL Labial Seal: WFL Chewing: WFL Oral Prep Time: WFL A-P Transit: WFL Pocketing: None Coughing/Throat Clear: No Change in Voice: No Recommendations - Speech Evaluation, Impression/Plan Impression: Verbal, fully oriented for me, good historian. Mild dysarthria, no Aphasia noted. Swallow onset delayed in onset but overtly functional. - Disposition Discharge to: Assisted Facility - Dysphagia Impressions/Plan Swallowing Skills: Impaired Dysphagia Impressions: Mild Impairment *Silent aspiration: cannot be R/O at bedside Dysphagia Treatment Plan: Chin Tuck/Down, 1/2 tsp. at a time, OOB for 1 h. after meals Recommendations: Modified Barium Swallow (if cough, congestion, fever) - Recommendations Diet Consistency: Regular (soft, easy to chew, extra gravy) Medication Administration: Whole with water Liquids: Thin Liquids
--- NOTE | 2017-12-24 12:43 | PN ---
Physical Exam: SUBJECTIVE: Patient seen and examined No acute events overnight. Patient feels well this morning. Patient has improved speech. Denies any neurologic symptoms. OBJECTIVE: Vital Signs Period Temp Pulse Resp BP Sys/Banuelos Pulse Ox Last 24 Hr 97.6 F-98.3 F 55-66 14-23 152-186/69-87 93-100 GENERAL: The patient is awake, alert, and fully oriented, in no acute distress. HEAD: Normal with no signs of trauma. EYES: PERRL, extraocular movements intact, sclera anicteric, conjunctiva clear. No ptosis. ENT: Oropharynx clear without exudates, moist mucous membranes. NECK: Trachea midline, full range of motion, supple. LUNGS: Breath sounds equal, clear to auscultation bilaterally, no wheezes, no crackles, no accessory muscle use. HEART: Regular rate and rhythm, S1, S2 without murmur, rub or gallop. ABDOMEN: Soft, nontender, nondistended, normoactive bowel sounds, no guarding, no rebound, no hepatosplenomegaly, no masses. EXTREMITIES: 2+ pulses, warm, well-perfused, no edema. NEUROLOGICAL: Cranial nerves II through XII grossly intact. Normal speech, + left facial droop, +left arm drift, +LUE/LLE weakness (3/5), sensation intact bilaterally PSYCH: Normal mood, normal affect. SKIN: Warm, dry, normal turgor, no rashes or lesions noted Laboratory Results - last 24 hr 12/23/17 12/23/17 12/23/17 15:43 15:43 15:43 WBC 8.1 RBC 3.17 L Hgb 9.3 L Hct 28.4 L MCV 89.6 MCH 29.2 MCHC 32.6 RDW 14.1 Plt Count 300 D MPV 9.8 Neutrophils % 69.5 Neutrophils % (Manual) Band Neutrophils % Lymphocytes % 17.1 Lymphocytes % (Manual) Monocytes % 8.3 Monocytes % (Manual) Eosinophils % 4.2 D Eosinophils % (Manual) Basophils % 0.9 Basophils % (Manual) Myelocytes % (Man) Promyelocytes % (Man) Blast Cells % (Manual) Nucleated RBC % Metamyelocytes Platelet Estimate PT with INR 13.80 H INR 1.22 H Sodium 138 Potassium 4.6 Chloride 107 Carbon Dioxide 22 Anion Gap 9 BUN 17 Creatinine 1.2 H Creat Clearance w eGFR 43.01 POC Glucometer Random Glucose 97 Calcium 8.8 Phosphorus Magnesium Total Bilirubin 0.3 AST 22 ALT 18 Alkaline Phosphatase 128 H Creatine Kinase 33 Troponin I < 0.02 Total Protein 7.3 Albumin 2.8 L Triglycerides 403 H Cholesterol 200 Total LDL Cholesterol 128 H HDL Cholesterol 31 L Urine Color Urine Appearance Urine pH Ur Specific [place] Urine Protein Urine Glucose (UA) Urine Ketones Urine Blood Urine Nitrite Urine Bilirubin Urine Urobilinogen Ur Leukocyte Esterase Blood Type Antibody Screen 12/23/17 12/23/17 12/23/17 15:43 16:20 17:06 WBC RBC Hgb Hct MCV MCH MCHC RDW Plt Count MPV Neutrophils % Neutrophils % (Manual) Band Neutrophils % Lymphocytes % Lymphocytes % (Manual) Monocytes % Monocytes % (Manual) Eosinophils % Eosinophils % (Manual) Basophils % Basophils % (Manual) Myelocytes % (Man) Promyelocytes % (Man) Blast Cells % (Manual) Nucleated RBC % Metamyelocytes Platelet Estimate PT with INR INR Sodium Potassium Chloride Carbon Dioxide Anion Gap BUN Creatinine Creat Clearance w eGFR POC Glucometer [phone] Random Glucose Calcium Phosphorus Magnesium Total Bilirubin AST ALT Alkaline Phosphatase Creatine Kinase Troponin I Total Protein Albumin Triglycerides Cholesterol Total LDL Cholesterol HDL Cholesterol Urine Color Ltyellow Urine Appearance Clear Urine pH 6.0 Ur Specific [place] 1.009 Urine Protein Negative Urine Glucose (UA) Negative Urine Ketones Negative Urine Blood Negative Urine Nitrite Negative Urine Bilirubin Negative Urine Urobilinogen Negative Ur Leukocyte Esterase Negative Blood Type B POSITIVE Antibody Screen Negative 12/23/17 12/24/17 12/24/17 23:39 05:28 05:28 WBC 11.0 H D RBC 3.16 L Hgb 9.4 L Hct 28.5 L MCV 90.0 MCH 29.8 MCHC 33.1 RDW 14.4 Plt Count 291 MPV 10.2 Neutrophils % No Result Required. Neutrophils % (Manual) 61.0 Band Neutrophils % 0.0 Lymphocytes % No Result Required. Lymphocytes % (Manual) 20.0 Monocytes % Monocytes % (Manual) 10 Eosinophils % Eosinophils % (Manual) 8.0 H Basophils % Basophils % (Manual) 1.0 Myelocytes % (Man) 0 Promyelocytes % (Man) 0 Blast Cells % (Manual) 0 Nucleated RBC % 0 Metamyelocytes 0 Platelet Estimate Normal PT with INR INR Sodium Potassium Chloride Carbon Dioxide Anion Gap BUN Creatinine Creat Clearance w eGFR POC Glucometer Random Glucose Calcium Phosphorus Magnesium Total Bilirubin AST ALT Alkaline Phosphatase Creatine Kinase Troponin I < 0.02 < 0.02 Total Protein Albumin Triglycerides Cholesterol Total LDL Cholesterol HDL Cholesterol Urine Color Urine Appearance Urine pH Ur Specific [place] Urine Protein Urine Glucose (UA) Urine Ketones Urine Blood Urine Nitrite Urine Bilirubin Urine Urobilinogen Ur Leukocyte Esterase Blood Type Antibody Screen 12/24/17 12/24/17 05:28 05:28 WBC RBC Hgb Hct MCV MCH MCHC RDW Plt Count MPV Neutrophils % Neutrophils % (Manual) Band Neutrophils % Lymphocytes % Lymphocytes % (Manual) Monocytes % Monocytes % (Manual) Eosinophils % Eosinophils % (Manual) Basophils % Basophils % (Manual) Myelocytes % (Man) Promyelocytes % (Man) Blast Cells % (Manual) Nucleated RBC % Metamyelocytes Platelet Estimate PT with INR INR Sodium 140 Potassium 4.1 Chloride 107 Carbon Dioxide 27 Anion Gap 6 L BUN 15 Creatinine 1.1 H Creat Clearance w eGFR 47.55 POC Glucometer Random Glucose 88 Calcium 9.1 Phosphorus 4.1 Magnesium 2.0 Total Bilirubin 0.3 AST 17 ALT 17 Alkaline Phosphatase 132 H Creatine Kinase Troponin I Total Protein 7.2 Albumin 2.9 L Triglycerides Cholesterol Total LDL Cholesterol HDL Cholesterol Urine Color Urine Appearance Urine pH Ur Specific [place] Urine Protein Urine Glucose (UA) Urine Ketones Urine Blood Urine Nitrite Urine Bilirubin Urine Urobilinogen Ur Leukocyte Esterase Blood Type Antibody Screen Active Medications Generic Name Dose Route Start Last Admin Trade Name Freq PRN Reason Stop Dose Admin Albuterol/Ipratropium 1 amp 12/24/17 10:11 Duoneb - NEB Q6H PRN SHORTNESS OF BREATH Atorvastatin Calcium 80 mg 12/24/17 22:00 Lipitor - PO HS HALIE Heparin Sodium (Porcine) 5,000 unit 12/23/17 22:00 12/24/17 05:01 Heparin - SQ 5,000 unit TID HALIE Administration Hydralazine HCl 10 mg 12/24/17 10:25 Apresoline Injection - IVPUSH Q6H PRN HYPERTENSION Sodium Chloride 1,000 mls @ 42 mls/hr 12/23/17 15:45 12/23/17 16:10 Normal Saline - IV 42 mls/hr ASDIR HALIE Administration Labetalol HCl 10 mg 12/23/17 21:35 Normodyne Injection - IVPUSH Q4H PRN HYPERTENSION Non-Formulary Medication 1 drop 12/24/17 10:00 Olopatadine Hcl [Patanol] OU DAILY HALIE Pantoprazole Sodium 40 mg 12/24/17 10:30 Protonix Iv IVPUSH DAILY HALIE ASSESSMENT/PLAN: 82 year-old female from [facility] on [place] with a PMH significant for HTN, h/o DVT on Xarelto, COPD, RA, anemia, hypothyroidism, recurrent UTIs, GERD, breast cancer, dementia, and s/p spinal surgery with instrumentation. Placed on observation for possible right MCA stroke #CVA -CT head negative -MRI brain, fax received from [facility]opedic and neurosurgery specialists stating there is no contraindication to MRI from her prior spinal surgeries -Neurology consult, Dr. Lauren -Cardiology consult, Dr. Ceja-- given CVA on ac, will need to assess ac options -Speech/swallow -PT -Echo pending -CUS reviewed #Hypertension -Holding anti-HTN meds, allow permissive htn #History of DVT -Cardiology consult, Dr. Ceja-- given CVA on ac, will need to assess ac options, Xarelto held for now #COPD -duonebs PRN #Rheumatoid athritis -holding PO meds until swallow evaluation #Anemia -h/h stable #Hypothyroidism -holding PO meds #GERD -protonix IV #Breast cancer -stable FEN Fluids: NS @ 42mL/hr Electrolytes: replete as indicated Nutrition: NPO until swallow evaluation DVT prophylaxis: subq heparin Physical therapy Dispo: Full admission. Can transfer to tele Visit type - Emergency Visit Emergency Visit: Yes ED Registration Date: 12/24/17 Care time: The patient presented to the Emergency Department on the above date and was hospitalized for further evaluation of their emergent condition. - New Patient This patient is new to me today: Yes Date on this admission: 12/24/17 - Critical Care Critical Care patient: Yes Total Critical Care Time (in minutes): 38 Critical Care Statement: The care of this patient involved high complexity decision making to prevent further life threatening deterioration of the patient 's condition and/or to evaluate & treat vital organ system(s) failure or risk of failure.
--- NOTE | 2017-12-24 13:05 | PN ---
Teaching Attending Note Name of Resident: Nolberto Kebede ATTENDING PHYSICIAN STATEMENT I saw and evaluated the patient. I reviewed the resident's note and discussed the case with the resident. I agree with the resident's findings and plan as documented. SUBJECTIVE: Patient is awake and alert. She says she feels back to normal. OBJECTIVE: Vital Signs Period Temp Pulse Resp BP Sys/Banuelos Pulse Ox Last 24 Hr 97.6 F-98.3 F 55-66 14-23 152-186/69-87 93-100 HEART: S1S2, RRR LUNGS: Clear ABDOMEN: Soft, non-tender, non-distended, normal BS EXTREMITIES: No edema NEUROLOGICAL: Alert, mild left facial droop, speech clear, tongue midline, mild left pronator drift, strength 4/5 in upper extremities, lower extremities contracted Laboratory Results - last 24 hr 12/23/17 12/23/17 12/23/17 15:43 15:43 15:43 WBC 8.1 RBC 3.17 L Hgb 9.3 L Hct 28.4 L MCV 89.6 MCH 29.2 MCHC 32.6 RDW 14.1 Plt Count 300 D MPV 9.8 Neutrophils % 69.5 Neutrophils % (Manual) Band Neutrophils % Lymphocytes % 17.1 Lymphocytes % (Manual) Monocytes % 8.3 Monocytes % (Manual) Eosinophils % 4.2 D Eosinophils % (Manual) Basophils % 0.9 Basophils % (Manual) Myelocytes % (Man) Promyelocytes % (Man) Blast Cells % (Manual) Nucleated RBC % Metamyelocytes Platelet Estimate PT with INR 13.80 H INR 1.22 H Sodium 138 Potassium 4.6 Chloride 107 Carbon Dioxide 22 Anion Gap 9 BUN 17 Creatinine 1.2 H Creat Clearance w eGFR 43.01 POC Glucometer Random Glucose 97 Calcium 8.8 Phosphorus Magnesium Total Bilirubin 0.3 AST 22 ALT 18 Alkaline Phosphatase 128 H Creatine Kinase 33 Troponin I < 0.02 Total Protein 7.3 Albumin 2.8 L Triglycerides 403 H Cholesterol 200 Total LDL Cholesterol 128 H HDL Cholesterol 31 L Urine Color Urine Appearance Urine pH Ur Specific [place] Urine Protein Urine Glucose (UA) Urine Ketones Urine Blood Urine Nitrite Urine Bilirubin Urine Urobilinogen Ur Leukocyte Esterase Blood Type Antibody Screen 12/23/17 12/23/17 12/23/17 15:43 16:20 17:06 WBC RBC Hgb Hct MCV MCH MCHC RDW Plt Count MPV Neutrophils % Neutrophils % (Manual) Band Neutrophils % Lymphocytes % Lymphocytes % (Manual) Monocytes % Monocytes % (Manual) Eosinophils % Eosinophils % (Manual) Basophils % Basophils % (Manual) Myelocytes % (Man) Promyelocytes % (Man) Blast Cells % (Manual) Nucleated RBC % Metamyelocytes Platelet Estimate PT with INR INR Sodium Potassium Chloride Carbon Dioxide Anion Gap BUN Creatinine Creat Clearance w eGFR POC Glucometer [phone] Random Glucose Calcium Phosphorus Magnesium Total Bilirubin AST ALT Alkaline Phosphatase Creatine Kinase Troponin I Total Protein Albumin Triglycerides Cholesterol Total LDL Cholesterol HDL Cholesterol Urine Color Ltyellow Urine Appearance Clear Urine pH 6.0 Ur Specific [place] 1.009 Urine Protein Negative Urine Glucose (UA) Negative Urine Ketones Negative Urine Blood Negative Urine Nitrite Negative Urine Bilirubin Negative Urine Urobilinogen Negative Ur Leukocyte Esterase Negative Blood Type B POSITIVE Antibody Screen Negative 12/23/17 12/24/17 12/24/17 23:39 05:28 05:28 WBC 11.0 H D RBC 3.16 L Hgb 9.4 L Hct 28.5 L MCV 90.0 MCH 29.8 MCHC 33.1 RDW 14.4 Plt Count 291 MPV 10.2 Neutrophils % No Result Required. Neutrophils % (Manual) 61.0 Band Neutrophils % 0.0 Lymphocytes % No Result Required. Lymphocytes % (Manual) 20.0 Monocytes % Monocytes % (Manual) 10 Eosinophils % Eosinophils % (Manual) 8.0 H Basophils % Basophils % (Manual) 1.0 Myelocytes % (Man) 0 Promyelocytes % (Man) 0 Blast Cells % (Manual) 0 Nucleated RBC % 0 Metamyelocytes 0 Platelet Estimate Normal PT with INR INR Sodium Potassium Chloride Carbon Dioxide Anion Gap BUN Creatinine Creat Clearance w eGFR POC Glucometer Random Glucose Calcium Phosphorus Magnesium Total Bilirubin AST ALT Alkaline Phosphatase Creatine Kinase Troponin I < 0.02 < 0.02 Total Protein Albumin Triglycerides Cholesterol Total LDL Cholesterol HDL Cholesterol Urine Color Urine Appearance Urine pH Ur Specific [place] Urine Protein Urine Glucose (UA) Urine Ketones Urine Blood Urine Nitrite Urine Bilirubin Urine Urobilinogen Ur Leukocyte Esterase Blood Type Antibody Screen 12/24/17 12/24/17 05:28 05:28 WBC RBC Hgb Hct MCV MCH MCHC RDW Plt Count MPV Neutrophils % Neutrophils % (Manual) Band Neutrophils % Lymphocytes % Lymphocytes % (Manual) Monocytes % Monocytes % (Manual) Eosinophils % Eosinophils % (Manual) Basophils % Basophils % (Manual) Myelocytes % (Man) Promyelocytes % (Man) Blast Cells % (Manual) Nucleated RBC % Metamyelocytes Platelet Estimate PT with INR INR Sodium 140 Potassium 4.1 Chloride 107 Carbon Dioxide 27 Anion Gap 6 L BUN 15 Creatinine 1.1 H Creat Clearance w eGFR 47.55 POC Glucometer Random Glucose 88 Calcium 9.1 Phosphorus 4.1 Magnesium 2.0 Total Bilirubin 0.3 AST 17 ALT 17 Alkaline Phosphatase 132 H Creatine Kinase Troponin I Total Protein 7.2 Albumin 2.9 L Triglycerides Cholesterol Total LDL Cholesterol HDL Cholesterol Urine Color Urine Appearance Urine pH Ur Specific [place] Urine Protein Urine Glucose (UA) Urine Ketones Urine Blood Urine Nitrite Urine Bilirubin Urine Urobilinogen Ur Leukocyte Esterase Blood Type Antibody Screen Current Medications Generic Name Dose Route Start Last Admin Trade Name Freq PRN Reason Stop Dose Admin Albuterol/Ipratropium 1 amp 12/24/17 10:11 Duoneb - NEB Q6H PRN SHORTNESS OF BREATH Atorvastatin Calcium 80 mg 12/24/17 22:00 Lipitor - PO HS HALIE Heparin Sodium (Porcine) 5,000 unit 12/23/17 22:00 12/24/17 05:01 Heparin - SQ 5,000 unit TID HALIE Administration Hydralazine HCl 10 mg 12/24/17 10:25 Apresoline Injection - IVPUSH Q6H PRN HYPERTENSION Sodium Chloride 1,000 mls @ 42 mls/hr 12/23/17 15:45 12/23/17 16:10 Normal Saline - IV 42 mls/hr ASDIR HALIE Administration Labetalol HCl 10 mg 12/23/17 21:35 Normodyne Injection - IVPUSH Q4H PRN HYPERTENSION Non-Formulary Medication 1 drop 12/24/17 10:00 Olopatadine Hcl [Patanol] OU DAILY HALIE Pantoprazole Sodium 40 mg 12/24/17 10:30 Protonix Iv IVPUSH DAILY HALIE ASSESSMENT AND PLAN: 82 year-old female from [facility] on [place] with a PMH significant for HTN, h/o DVT on Xarelto, COPD, RA, anemia, hypothyroidism, recurrent UTIs, GERD, breast cancer, dementia, and spinal surgery with instrumentation who presented with slurred speech and left facial droop. 1. Possible right MCA ischemic infarct - Symptoms improving - MRI today if possible, otherwise will repeat head CT - Unclear if patient has history of PAF - she was on Xarelto for DVTs - Restart anticoagulation pending results of MRI/CT and cardiology evaluation - Swallow evaluation noted - Physical therapy 2. Hypertension - Atenolol, lisinopril on hold allowing permissive HTN for now 3. History of DVTs - Anticoagulation on hold 4. COPD - Stable - Continue DuoNeb as needed 5. Rheumatoid athritis - Restart Arava 6. Anemia - Hemoglobin stable - Resume ferrous sulfate 7. Hypothyroidism - Resume Synthroid 8. Breast cancer, history of left lumpectomy 9. Dementia
--- NOTE | 2017-12-24 15:32 | EKG ---
Test Reason : Blood Pressure : / mmHG Vent. Rate : 063 BPM Atrial Rate : 063 BPM P-R Int : 154 ms QRS Dur : 096 ms QT Int : 422 ms P-R-T Axes : 061 -12 -01 degrees QTc Int : 431 ms NORMAL SINUS RHYTHM NORMAL ECG WHEN COMPARED WITH ECG OF 23-DEC-2017 15:57, T WAVE INVERSION NO LONGER EVIDENT IN ANTERIOR LEADS Confirmed by NASEEM LEONG, PAUL ([id number]) on 12/24/2017 3:32:06 PM Referred By: Crystal DIGGS Confirmed By:PAUL GUSMAN MD
--- NOTE | 2017-12-24 15:54 | CON.CARD ---
Consult Consult Specialty:: Cardiology Referred by:: Ms. Oj NP Reason for Consultation:: Possible right MCA stroke whille on Xarelto - History of Present Illness Chief Complaint: Weakness History of Present Illness: 82 year-old woman with a PMHx of DVT and paroxysmal atrial fibrillation on Xarelto, HTN, COPD, RA, hypothyroidism, COPD, anemia, UTI, dementia, GERD, and breast cancer admitted 12/23/2017 with facial droop and left arm weakness with presumed right MCA stroke. CT scan showed no bleed. Blood work was unremarkable. tPA was withheld due to patient's age and anticoagulation status. The patient was seen in ICU. She was awake and alert. She has improved weakness. She reports no palpitation, chest pain or SOB. ECG 12/23/2017 showed normal sinus rhythm. LVH by voltage and anterior T wave abnormalities. Telemetry: Sinus with rare VPCs. No evidence of atrial fibrillation. Carotid duplex 12/23/2017: No hemodynamically significant stenosis. Echocardiogram 12/24/2017: Normal LV size, wall motion and systolic function. Normal RV. Normal LA and RA is size. MVP with moderate MR. 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 No: Renal Failure, Renal Inusuff, BPH, Cancer, Hematuria, Hemodialysis, Neurogenic Bladder, Renal Calculi, Other Rheumatology: Yes: Rheumatoid Arthritis. 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 History of Recent Travel: No Home Medications - Allergies Allergies/Adverse Reactions: Allergies Allergy/AdvReac Type Severity Reaction Status Date / Time Penicillins Allergy Verified 12/23/17 15:54 Sulfa (Sulfonamide Allergy Verified 12/23/17 15:54 Antibiotics) - Home Medications Home Medications: Ambulatory Orders Acetaminophen 650 mg PO PRN 12/08/17 Acidoph/L.bulg/Bif.b/S.thermop [Leonela-Bid Caplet] 1 each PO BID 12/08/17 Atenolol [Tenormin -] 50 mg PO DAILY 12/08/17 Docusate Sodium 200 mg PO HS 12/08/17 Duloxetine HCl [Cymbalta] 60 mg PO DAILY 12/08/17 Ferrous Sulfate 325 mg PO BID 12/08/17 Fluconazole 200 mg PO DAILY 12/08/17 Gabapentin [Neurontin] 100 mg PO TID 12/08/17 Lansoprazole [Prevacid] 30 mg PO DAILY 12/08/17 Leflunomide [Arava -] 10 mg PO DAILY 12/08/17 Levothyroxine [Synthroid -] 112 mcg PO DAILY 12/08/17 Lisinopril [Prinivil] 10 mg PO DAILY 12/08/17 Loratadine [Claritin] 10 mg PO DAILY 12/08/17 Mag Hydrox/Aluminum Hyd/Simeth [Maalox Advanced Suspension] 30 ml PO TID PRN 05/19 Magnesium Hydroxide [Milk of Magnesia] 30 ml PO DAILY PRN 12/08/17 Melatonin 3 mg PO HS 12/08/17 Mirtazapine 22.5 mg PO DAILY 12/08/17 Olopatadine HCl [Patanol] 1 drop OU DAILY 12/08/17 Oxybutynin Chloride [Oxybutynin Chloride ER] 5 mg PO DAILY 12/08/17 Rivaroxaban [Xarelto -] 15 mg PO HS 12/08/17 Sennosides [Senna -] 1 tab PO HS 12/08/17 Mirtazapine [Remeron -] 30 mg PO DAILY 12/23/17 Sennosides [Senna] 2 tab PO HS 12/23/17 Family Disease History - Family Disease History Family Disease History: Heart Disease: Mother, CA: Sister (breast), Respiratory : Father Vital Signs: Vital Signs Temperature 98.6 F 12/24/17 14:00 Pulse Rate 64 12/24/17 14:00 Respiratory Rate 20 12/24/17 14:00 Blood Pressure 170/70 12/24/17 14:00 O2 Sat by Pulse Oximetry (%) 98 12/24/17 08:00 General: Well developed. Chronic ill. No acute distress. Head: Normocephalic. Atraumatic, Eyes: PERRLA, EOMI. Sclerae anicteric. Conjunctivae clear. Neck: Supple. No JVD. No bruits. Heart: Normal S1, S2: Regularly regular rhythm and rate. II/ holosystolic murmur. No gallop or rub. Lungs: Symmetrical air entry. Clear to auscultation. No crackle. No wheezing or rhonchi. Abdomen: Soft. Bowel sound positive. Non tender. No masses. Extremities: No edema. No clubbing or cyanosis. - Other Data Labs, Other Data: CBC, BMP 12/24/17 05:28 12/24/17 05:28 INR, PTT INR 1.22 (0.82-1.09) H 12/23/17 15:43 Troponin, BNP 12/23/17 12/23/17 12/24/17 15:43 23:39 05:28 Troponin I < 0.02 < 0.02 < 0.02 Troponin, BNP 12/23/17 12/23/17 12/24/17 15:43 23:39 05:28 Troponin I < 0.02 < 0.02 < 0.02 Assessment/Plan 82 year-old woman with a PMHx of DVT and paroxysmal atrial fibrillation on Xarelto, HTN, COPD, RA, hypothyroidism, COPD, anemia, UTI, dementia, GERD, and breast cancer admitted 12/23/2017 with facial droop and left arm weakness with presumed right MCA stroke. CT scan showed no bleed. Blood work was unremarkable. tPA was withheld due to patient's age and anticoagulation status. The patient was seen in ICU. She was awake and alert. She has improved weakness. She reports no palpitation, chest pain or SOB. ECG 12/23/2017 showed normal sinus rhythm. LVH by voltage and anterior T wave abnormalities. Telemetry: Sinus with rare VPCs. No evidence of atrial fibrillation. Carotid duplex 12/23/2017: No hemodynamically significant stenosis. Echocardiogram 12/24/2017: Normal LV size, wall motion and systolic function. Normal RV. Normal LA and RA is size. MVP with moderate MR. 1) Possible right MCA CVA and Xarelto failure The patient has a history of paroxysmal atrial fibrillation on Xarelto admitted with possible right MCA stroke, possible due to Xarelto failure. There were case reports of Xarelto failures. I have three patients with persistent/ paroxysmal atrial fibrillation who developed TIA while on Xarolto. Change Xarelto to Eliquis 5 mg BID when she is ready. 2) Hypertension. BP control as per ICU team. Please call us for reconsult as needed.
[2017-12-24] MEDS: SODIUM CHLORIDE 1,000 ML IV SCH (18:53)
[2017-12-24] MEDS ORDERED: LABETALOL HCL 5 MG/1 ML (100MG/20 ML VIAL) IVPUSH PRN (21:00)
[2017-12-24] MEDS ORDERED: SODIUM CHLORIDE 1,000 ML IV SCH (21:00)
[2017-12-24] MEDS ORDERED: ATORVASTATIN CA 80 MG TABLET (FP) PO SCH (22:00)
[2017-12-24] MEDS: ATORVASTATIN CA 80 MG TABLET (FP) PO SCH (22:30)
[2017-12-25] MEDS: HEPARIN NA (PORCINE) 5,000 UNITS/ML 1ML VIAL SQ SCH (05:19)
[2017-12-25 07:22] LABS: BASO % 1.1 % (0-2.0); EOS % 3.6 % (0-4.5); HEMATOCRIT 25.1 % (32.4-45.2); HEMOGLOBIN 8.3 GM/dL (10.7-15.3); LYMPH % 18.7 % (8-40); MCH 29.5 pg (25.7-33.7); MCHC 33.1 g/dl (32.0-36.0); MEAN CELL VOLUME 89.3 fl (80-96); MEAN PLT VOLUME 9.3 fl (7.5-11.1); MONO % 12.3 % (3.8-10.2); NEUT % 64.3 % (42.8-82.8); PLATELET COUNT 272 K/MM3 (134-434); RDW 14.2 % (11.6-15.6); WHITE BLOOD COUNT 7.1 K/mm3 (4.0-10.0)
[2017-12-25 07:24] LABS: ALBUMIN 2.7 g/dl (3.4-5.0); ALK PHOS 116 U/L (45-117); ANION GAP 10 (8-16); BILIRUBIN,TOTAL 0.4 mg/dL (0.2-1.0); BLOOD UREA NITROGEN 12 mg/dL (7-18); CALCIUM 8.8 mg/dL (8.5-10.1); CHLORIDE 106 mmol/L (98-107); CO2 25 mmol/L (21-32); GLUCOSE,RANDOM 91 mg/dL (74-106); PHOSPHOROUS 3.2 mg/dL (2.5-4.9); POTASSIUM 3.7 mmol/L (3.5-5.1); SGOT/AST 16 U/L (15-37); SGPT/ALT 12 U/L (12-78); SODIUM 141 mmol/L (136-145); TOT PROT 6.5 g/dl (6.4-8.2)
[2017-12-25] MEDS ORDERED: MAG HYDROX/AL HYDROX/SIMETH 30 ML UNIT-DOSE CUP PO PRN (08:03)
[2017-12-25] MEDS ORDERED: MAGNESIUM HYDROX 2400MG/30ML ORAL SUSPENSION 30 ML CUP PO PRN (08:03)
--- NOTE | 2017-12-25 09:12 | PN ---
Progress Note (short form) - Note Progress Note: Neurology History of Present Illness - History of Present Illness "The patient is a 82 year old female, from [facility], with a significant PMH of hypertension, COPD, RA, anemia, hypothyroidism, UTI, dementia, GERD, breast cancer, who presents to the emergency department with slurred speech and left sided facial droop reportedly at 2:30 pm. As per the senior living staff the patient was last seen normal at 1:45 pm. At 2:30, [place] staff found pt had developed a facial droop and had difficulty raising her left arm. The patient states that at around this time, she noticed her speech started to slur. She was brought to [facility] and I was contacted by the ER. CT head was completed and patient on Xarelto and therefore not TPA candidate. She was seen by me in the ER and did have focal deficits including slurred speech, L sided weakness. We were joined at the bedside by her daughter, eBv who stated she is the health care proxy, and son in law. I had an extensive conversation with the patient and family regarding pathology of CVA, pathophysiology, possible etiology, CT results, and possible treatment options. Discussed with them thrombectomy as possible intervention and had spoken cerebrovascular specialist on the phone as well. After half hour conversation discussing risks, benefits, alternatives, the family and patient decided to forgo endovascular intervention. The patient has been DNR/DNI in the past and is currently wheelchair bound at [place] due to rhematoid arthritis and thus there was question of what would be salvaged in terms of motor function. They felt speech may improve with therapy and concern for endovascular procedure risk including anesthesia were very high for them. Discussed with them further treatment options while admitted at [facility] and workup that would be needed and they were in agreement. Patient now in ICU under critical care monitoring this AM. Her speech has improved though still with some dysarthria that's mild, slight aphasia. SHe is raising her arms this AM with improved strength though still pronator drift noted on LUE. Daughter at bedside and discussed clinical course and plan. Permissive HTN may have helped with functionality now. Carotid doppler w/o hemodynamic significant stenosis. Can gradually reduce BP, maintain < 160/90. MRI brain completed and reviewed and discussed with patient and daughter. R basal ganglia infarct, acute noted. Chronic Left internal capsule infarct also noted. AC was being held, can restart AC as now >48hrs. Daughter in agreement, spoke to her on phone. LDL 128, has been started on Lipitor 80mg. Also Reviewed Echo with normal LV function, wall motion normal. Cardiology note reviewed. Active Medications Al Hydroxide/Mg Hydroxide (Mylanta Oral Suspension -) 30 ml PO TID PRN PRN Reason: PAIN Albuterol/Ipratropium (Duoneb -) 1 amp NEB Q6H PRN PRN Reason: SHORTNESS OF BREATH Atenolol (Tenormin -) 50 mg PO DAILY [facility] Atorvastatin Calcium (Lipitor -) 80 mg PO HS [facility] Last Admin: 12/24/17 22:30 Dose: 80 mg Docusate Sodium (Colace -) 200 mg PO HS [facility] Duloxetine HCl (Cymbalta -) 60 mg PO DAILY [facility] Ferrous Sulfate (Feosol -) 325 mg PO BID [facility] Gabapentin (Neurontin -) 100 mg PO TID [facility] Heparin Sodium (Porcine) (Heparin -) 5,000 unit SQ TID [facility] Last Admin: 12/25/17 05:19 Dose: 5,000 unit Sodium Chloride (Normal Saline -) 1,000 mls @ 42 mls/hr IV ASDIR [facility] Last Admin: 12/24/17 22:29 Dose: 42 mls/hr Labetalol HCl (Normodyne Injection -) 10 mg IVPUSH Q4H PRN PRN Reason: HYPERTENSION Leflunomide (Arava -) 10 mg PO DAILY [facility] Levothyroxine Sodium (Synthroid -) 112 mcg PO DAILY@0700 [facility] Lisinopril (Prinivil) 10 mg PO DAILY [facility] Loratadine (Claritin -) 10 mg PO DAILY [facility] Magnesium Hydroxide (Milk Of Magnesia -) 30 ml PO DAILY PRN PRN Reason: PAIN Melatonin (Melatonin) 3 mg PO HS [facility] Mirtazapine (Remeron -) 22.5 mg PO DAILY [facility] Non-Formulary Medication (Olopatadine Hcl [Patanol]) 1 drop OU DAILY [facility] Non-Formulary Medication (Acidoph/L.Bulg/Bif.B/S.Thermop [Leonela-Bid Caplet]) 1 each PO BID [facility] Oxybutynin Chloride (Ditropan -) 5 mg PO DAILY [facility] Pantoprazole Sodium (Protonix Iv) 40 mg IVPUSH DAILY [facility] Senna (Senna -) 1 tab PO HS [facility] Senna (Senna -) 2 tab PO HS [facility] *Physical Exam Vital Signs Period Temp Pulse Resp BP Sys/Banuelos Pulse Ox Last 24 Hr 97.8 F-98.6 F 63-84 20-22 134-188/70-88 98 "GENERAL: Awake, alert, and fully oriented, in no acute distress. HEAD: No signs of trauma EYES: PERRLA, EOMI, sclera anicteric, conjunctiva clear ENT: Auricles normal inspection, hearing grossly normal, nares patent, oropharynx clear without exudates. Moist mucosa NECK: Nontender, no stepoffs, Normal ROM, supple, no lymphadenopathy, JVD, or masses LUNGS: Breath sounds equal, clear to auscultation bilaterally. No wheezes, and no crackles HEART: Regular rate and rhythm, normal S1 and S2, no murmurs, rubs or gallops ABDOMEN: Soft, nontender, normoactive bowel sounds. No guarding, no rebound. No masses EXTREMITIES: Normal range of motion, no edema. No clubbing or cyanosis. No cords, erythema, or tenderness NEUROLOGICAL: + L facial droop, +L pronator drift, +LLE weakness 3-/5, sensation intact throughout, LUE 4+/5 SKIN: Warm, Dry, normal turgor, no rashes or lesions noted Gait deferred CBCD WBC 7.1 K/mm3 (4.0-10.0) D 12/25/17 05:35 RBC 2.80 M/mm3 (3.60-5.2) L 12/25/17 05:35 Hgb 8.3 GM/dL (10.7-15.3) L D 12/25/17 05:35 Hct 25.1 % (32.4-45.2) L 12/25/17 05:35 MCV 89.3 fl (80-96) 12/25/17 05:35 MCHC 33.1 g/dl (32.0-36.0) 12/25/17 05:35 RDW 14.2 % (11.6-15.6) 12/25/17 05:35 Plt Count 272 K/MM3 (134-434) 12/25/17 05:35 MPV 9.3 fl (7.5-11.1) 12/25/17 05:35 CMP Sodium 141 mmol/L (136-145) 12/25/17 05:35 Potassium 3.7 mmol/L (3.5-5.1) 12/25/17 05:35 Chloride 106 mmol/L (98-107) 12/25/17 05:35 Carbon Dioxide 25 mmol/L (21-32) 12/25/17 05:35 Anion Gap 10 (8-16) 12/25/17 05:35 BUN 12 mg/dL (7-18) 12/25/17 05:35 Creatinine 1.0 mg/dL (0.55-1.02) 12/25/17 05:35 Creat Clearance w eGFR 53.08 (>60) 12/25/17 05:35 Calcium 8.8 mg/dL (8.5-10.1) 12/25/17 05:35 Total Bilirubin 0.4 mg/dL (0.2-1.0) D 12/25/17 05:35 AST 16 U/L (15-37) 12/25/17 05:35 ALT 12 U/L (12-78) 12/25/17 05:35 Alkaline Phosphatase 116 U/L (45-117) 12/25/17 05:35 Total Protein 6.5 g/dl (6.4-8.2) 12/25/17 05:35 Albumin 2.7 g/dl (3.4-5.0) L 12/25/17 05:35 CT head reviewed Carotid Doppler without HD significant strenosis MRI brain reviewed Echo reviewed PLAN: 82 year old female, from [facility], with a significant PMH of hypertension, COPD , RA, anemia, hypothyroidism, UTI, dementia, GERD, breast cancer, who presents to the emergency department with slurred speech and left sided facial droop possibly with R MCA stroke. CT head was completed and patient on Xarelto and therefore not TPA candidate. Discussed with them thrombectomy as possible intervention and had spoken cerebrovascular specialist on the phone as well. After half hour conversation discussing risks, benefits, alternatives, the family and patient decided to forgo endovascular intervention Patient was in trendelenberg to allow cerebral perfusion Blood pressure control, goal < 160/90 Can restart Anti-HTN MRI brain reviewed, R basal ganglia infarct confirmed Caridiology consult reviewed, recommened Eliquis instead of Xarelto Can restart AC Started on lipitor 80, LDL 128 Physcial therapy Plan is to go back to [facility] DVT ppx Discussed with patient Discussed with nurse Discussed with daughter via phone
[2017-12-25] MEDS ORDERED: DULoxetine HCL 30 MG CAPSULE.DR (FP) PO ONE (09:38)
[2017-12-25] MEDS ORDERED: PT OWN MED DRAWER 7, Y5N ONE ×2 (09:40→22:11)
[2017-12-25] MEDS: FERROUS SO4 325 MG TABLET (FP) PO SCH ×2 (09:47→22:13)
[2017-12-25] MEDS: MIRTAZAPINE 15 MG TABLET (FP) PO SCH (09:47)
[2017-12-25] MEDS: LISINOPRIL 10 MG TABLET (FP) PO SCH (09:47)
[2017-12-25] MEDS: ATENOLOL 50 MG TABLET (FP) PO SCH (09:47)
[2017-12-25] MEDS: LORATADINE 10 MG TABLET PO SCH (09:47)
[2017-12-25] MEDS: OXYBUTYNIN CHLORIDE 5 MG TABLET PO SCH (09:47)
[2017-12-25] MEDS ORDERED: OLOPATADINE HCL OU SCH (10:00)
[2017-12-25] MEDS ORDERED: DULoxetine HCL 60 MG CAPSULE.DR PO SCH (10:00)
[2017-12-25] MEDS ORDERED: PATIENT'S OWN MEDICATION (NON-FORMULARY) (Acidoph/L.Bulg/Bif.B/S.Thermop [Risa-Bid Caplet] PO SCH (10:00)
[2017-12-25] MEDS ORDERED: MIRTAZAPINE 30 MG TABLET (FP) PO SCH (10:00)
[2017-12-25] MEDS ORDERED: PANTOPRAZOLE SODIUM 40 MG VIAL IVPUSH SCH (10:00)
[2017-12-25] MEDS ORDERED: PATIENT'S OWN MEDICATION (NON-FORMULARY) (Lansoprazole [Prevacid] 30 MG) PO SCH (10:00)
[2017-12-25] MEDS: LEFLUNOMIDE 10 MG TABLET PO SCH (11:34)
[2017-12-25] MEDS: APIXABAN 5 MG TABLET PO SCH ×2 (11:34→22:14)
[2017-12-25] MEDS: GABAPENTIN 100 MG CAPSULE (FP) PO SCH ×2 (14:27→22:16)
--- NOTE | 2017-12-25 16:27 | DS ---
Physical Exam: Microbiology 12/23/17 17:06 Urine - Urine - Catheterized Urine Culture - Final Selected Entries 12/26/17 12/26/17 08:50 10:00 Temperature 97.6 F Pulse Rate 65 Respiratory 19 Rate Blood Pressure 156/71 O2 Sat by Pulse 94 L Oximetry (%) Oxygen Flow 2 Rate Laboratory Tests 12/23/17 12/23/17 12/23/17 15:43 15:43 17:06 WBC Hgb Hct Plt Count PT with INR 13.80 H INR 1.22 H Sodium Potassium Chloride Carbon Dioxide Anion Gap BUN Creatinine Troponin I < 0.02 Albumin 2.8 L Triglycerides 403 H Cholesterol 200 Total LDL Cholesterol 128 H HDL Cholesterol 31 L Urine Color Ltyellow Urine Appearance Clear Urine pH 6.0 Ur Specific [place] 1.009 Urine Protein Negative Urine Glucose (UA) Negative Urine Ketones Negative Urine Blood Negative Urine Nitrite Negative Urine Bilirubin Negative Urine Urobilinogen Negative Ur Leukocyte Esterase Negative 12/23/17 12/24/17 12/25/17 23:39 05:28 05:35 WBC 7.1 D Hgb 8.3 L D Hct 25.1 L Plt Count 272 PT with INR INR Sodium Potassium Chloride Carbon Dioxide Anion Gap BUN Creatinine Troponin I < 0.02 < 0.02 Albumin Triglycerides Cholesterol Total LDL Cholesterol HDL Cholesterol Urine Color Urine Appearance Urine pH Ur Specific [place] Urine Protein Urine Glucose (UA) Urine Ketones Urine Blood Urine Nitrite Urine Bilirubin Urine Urobilinogen Ur Leukocyte Esterase 12/25/17 05:35 WBC Hgb Hct Plt Count PT with INR INR Sodium 141 Potassium 3.7 Chloride 106 Carbon Dioxide 25 Anion Gap 10 BUN 12 Creatinine 1.0 Troponin I Albumin Triglycerides Cholesterol Total LDL Cholesterol HDL Cholesterol Urine Color Urine Appearance Urine pH Ur Specific [place] Urine Protein Urine Glucose (UA) Urine Ketones Urine Blood Urine Nitrite Urine Bilirubin Urine Urobilinogen Ur Leukocyte Esterase HEAD CT- no acute pathology Chest XRAY- No acute pathology CUS- no evidence of significant stenosis Brain MRI- 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 Patient admitted for acute cva. Patient not in tPA window. Patient underwent head ct- negative. Cardiology reviewed the case and discontinued her xarelto and started her on eliquis. She was evaluated by speech/swallow and found to have mild impairment. Neurology saw the patient and Started lipitor 80 mg. Patient improved over the next few days. She will be d/c back to [facility] to complete rehab. She will f/u with pcp and neurology within 1 week. Minutes to complete discharge: 38 Discharge Summary Reason For Visit: CEREBROVASCULAR ACCIDENT (CVA) Current Active Problems Cerebrovascular accident (CVA) (Acute) Dementia (Chronic) HTN (hypertension) (Chronic) History of DVT (deep vein thrombosis) (Chronic) Hypothyroidism (Chronic) Rheumatoid arthritis (Chronic) UTI (urinary tract infection) (Chronic) Condition: Stable - Instructions Diet, Activity, Other Instructions: You were in the hospital for a stroke. Follow-up with your primary care physician, [facility]. Follow up with the neurologist within 1 week. Referrals have been provided. Stop taking Xarelto. Start taking Eliquis 5 mg by mouth twice per day. Continue your other home medications as prescribed. If you develop new symptoms, have chest pain, or shortness of breath please come back to the hospital immediately. Referrals: Panfilo Ibarra MD [Staff Physician] - Biju Lauren MD [Staff Physician] - Disposition: RESIDENTIAL FACILITY - Home Medications Comprehensive Discharge Medication List: Ambulatory Orders Acetaminophen 650 mg PO PRN 12/08/17 Acidoph/L.bulg/Bif.b/S.thermop [Leonela-Bid Caplet] 1 each PO BID 12/08/17 Atenolol [Tenormin -] 50 mg PO DAILY 12/08/17 Docusate Sodium 200 mg PO HS 12/08/17 Duloxetine HCl [Cymbalta] 60 mg PO DAILY 12/08/17 Ferrous Sulfate 325 mg PO BID 12/08/17 Fluconazole 200 mg PO DAILY 12/08/17 Gabapentin [Neurontin] 100 mg PO TID 12/08/17 Lansoprazole [Prevacid] 30 mg PO DAILY 12/08/17 Leflunomide [Arava -] 10 mg PO DAILY 12/08/17 Levothyroxine [Synthroid -] 112 mcg PO DAILY 12/08/17 Lisinopril [Prinivil] 10 mg PO DAILY 12/08/17 Loratadine [Claritin] 10 mg PO DAILY 12/08/17 Mag Hydrox/Aluminum Hyd/Simeth [Maalox Advanced Suspension] 30 ml PO TID PRN 05/19 Magnesium Hydroxide [Milk of Magnesia] 30 ml PO DAILY PRN 12/08/17 Melatonin 3 mg PO HS 12/08/17 Mirtazapine 22.5 mg PO DAILY 12/08/17 Olopatadine HCl [Patanol] 1 drop OU DAILY 12/08/17 Oxybutynin Chloride [Oxybutynin Chloride ER] 5 mg PO DAILY 12/08/17 Sennosides [Senna -] 1 tab PO HS 12/08/17 Sennosides [Senna -] 2 tab PO HS 12/23/17 Apixaban [Eliquis -] 5 mg PO BID tablet 12/25/17 Atorvastatin Ca [Lipitor] 80 mg PO HS tablet 12/25/17 This patient is new to me today: Yes Date on this admission: 12/26/17 Emergency Visit: No Critical Care patient: No - Discharge Referral Referred to [facility] No
--- NOTE | 2017-12-25 16:46 | PN ---
Teaching Attending Note Name of Resident: Nolberto Kebede ATTENDING PHYSICIAN STATEMENT I saw and evaluated the patient. I reviewed the resident's note and discussed the case with the resident. I agree with the resident's findings and plan as documented. SUBJECTIVE: Patient has no complaints. OBJECTIVE: Vital Signs Period Temp Pulse Resp BP Sys/Banuelos Pulse Ox Last 24 Hr 97.8 F-98.6 F 69-84 19-20 134-164/78-98 98-98 HEART: S1S2, RRR LUNGS: Clear ABDOMEN: Soft, non-tender, non-distended, normal BS EXTREMITIES: No edema NEUROLOGICAL: Alert, mild left facial droop, speech clear Laboratory Results - last 24 hr 12/25/17 12/25/17 05:35 05:35 WBC 7.1 D RBC 2.80 L Hgb 8.3 L D Hct 25.1 L MCV 89.3 MCH 29.5 MCHC 33.1 RDW 14.2 Plt Count 272 MPV 9.3 Neutrophils % 64.3 Lymphocytes % 18.7 Monocytes % 12.3 H Eosinophils % 3.6 Basophils % 1.1 Sodium 141 Potassium 3.7 Chloride 106 Carbon Dioxide 25 Anion Gap 10 BUN 12 Creatinine 1.0 Creat Clearance w eGFR 53.08 Random Glucose 91 Calcium 8.8 Phosphorus 3.2 Magnesium 2.0 Total Bilirubin 0.4 D AST 16 ALT 12 Alkaline Phosphatase 116 Total Protein 6.5 Albumin 2.7 L Current Medications Generic Name Dose Route Start Last Admin Trade Name Freq PRN Reason Stop Dose Admin Al Hydroxide/Mg Hydroxide 30 ml 12/25/17 08:03 Mylanta Oral Suspension - PO TID PRN PAIN Albuterol/Ipratropium 1 amp 12/24/17 21:00 Duoneb - NEB Q6H PRN SHORTNESS OF BREATH Apixaban 5 mg 12/25/17 10:00 12/25/17 11:34 Eliquis - PO 5 mg BID [facility] Administration Atenolol 50 mg 12/25/17 10:00 12/25/17 09:47 Tenormin - PO 50 mg DAILY [facility] Administration Atorvastatin Calcium 80 mg 12/24/17 22:00 12/24/17 22:30 Lipitor - PO 80 mg HS [facility] Administration Docusate Sodium 200 mg 12/25/17 22:00 Colace - PO HS [facility] Duloxetine HCl 60 mg 12/25/17 10:00 12/25/17 09:47 Cymbalta - PO 60 mg DAILY [facility] Administration Ferrous Sulfate 325 mg 12/25/17 10:00 12/25/17 09:47 Feosol - PO 325 mg BID [facility] Administration Gabapentin 100 mg 12/25/17 14:00 12/25/17 14:27 Neurontin - PO 100 mg TID [facility] Administration Sodium Chloride 1,000 mls @ 42 mls/hr 12/24/17 21:00 12/24/17 22:29 Normal Saline - IV 42 mls/hr ASDIR [facility] Administration Labetalol HCl 10 mg 12/24/17 21:00 Normodyne Injection - IVPUSH Q4H PRN HYPERTENSION Leflunomide 10 mg 12/25/17 10:00 12/25/17 11:34 Arava - PO 10 mg DAILY [facility] Administration Levothyroxine Sodium 112 mcg 12/26/17 07:00 Synthroid - PO DAILY@0700 [facility] Lisinopril 10 mg 12/25/17 10:00 12/25/17 09:47 Prinivil PO 10 mg DAILY [facility] Administration Loratadine 10 mg 12/25/17 10:00 12/25/17 09:47 Claritin - PO 10 mg DAILY [facility] Administration Magnesium Hydroxide 30 ml 12/25/17 08:03 Milk Of Magnesia - PO DAILY PRN PAIN Melatonin 3 mg 12/25/17 22:00 Melatonin PO HS [facility] Mirtazapine 22.5 mg 12/25/17 10:00 12/25/17 09:47 Remeron - PO 22.5 mg DAILY [facility] Administration Oxybutynin Chloride 5 mg 12/25/17 10:00 12/25/17 09:47 Ditropan - PO 5 mg DAILY [facility] Administration Pantoprazole Sodium 40 mg 12/25/17 10:00 12/25/17 09:47 Protonix Iv IVPUSH 40 mg DAILY [facility] Administration Senna 2 tab 12/25/17 22:00 Senna - PO HS [facility] ASSESSMENT AND PLAN: This is an 82 year old woman from [facility] with a history of HTN, DVTs, COPD, RA, anemia, hypothyroidism, recurrent UTIs, GERD, breast cancer, dementia , and spinal surgery with instrumentation who presented to the ED with slurred speech and left facial droop. 1. 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 Hypertension - Atenolol, lisinopril restarted 3. History of DVTs - Xarelto changed to Eliquis 4. COPD - Stable - Continue DuoNeb as needed 5. Rheumatoid athritis - Continue Arava 6. Anemia - Continue ferrous sulfate 7. Hypothyroidism - Continue Synthroid 8. Breast cancer, history of left lumpectomy 9. Dementia 10. Ok for discharge to [facility] michel Hernandez
[2017-12-25] MEDS ORDERED: MELATONIN 1 MG TABLET PO SCH (22:00)
[2017-12-25] MEDS ORDERED: SENNOSIDES 8.6MG TABLET (FP) PO SCH ×2 (22:00)
[2017-12-25] MEDS ORDERED: DOCUSATE SODIUM 100 MG CAPSULE (FP) PO SCH (22:00)
[2017-12-25] MEDS: ATORVASTATIN CA 80 MG TABLET (FP) PO SCH (22:14)
[2017-12-26] MEDS: GABAPENTIN 100 MG CAPSULE (FP) PO SCH ×2 (06:13→13:27)
[2017-12-26] MEDS ORDERED: LEVOTHYROXINE NA 112 MCG TABLET (FP) PO SCH (07:00)
--- NOTE | 2017-12-26 09:47 | PN ---
Progress Note (short form) - Note Progress Note: Neurology History of Present Illness - History of Present Illness "The patient is a 82 year old female, from [facility], with a significant PMH of hypertension, COPD, RA, anemia, hypothyroidism, UTI, dementia, GERD, breast cancer, who presents to the emergency department with slurred speech and left sided facial droop reportedly at 2:30 pm. As per the senior care staff the patient was last seen normal at 1:45 pm. At 2:30, [place] staff found pt had developed a facial droop and had difficulty raising her left arm. The patient states that at around this time, she noticed her speech started to slur. She was brought to [facility] and I was contacted by the ER. CT head was completed and patient on Xarelto and therefore not TPA candidate. She was seen by me in the ER and did have focal deficits including slurred speech, L sided weakness. We were joined at the bedside by her daughter, Bev who stated she is the health care proxy, and son in law. I had an extensive conversation with the patient and family regarding pathology of CVA, pathophysiology, possible etiology, CT results, and possible treatment options. Discussed with them thrombectomy as possible intervention and had spoken cerebrovascular specialist on the phone as well. After half hour conversation discussing risks, benefits, alternatives, the family and patient decided to forgo endovascular intervention. The patient has been DNR/DNI in the past and is currently wheelchair bound at [place] due to rhematoid arthritis and thus there was question of what would be salvaged in terms of motor function. They felt speech may improve with therapy and concern for endovascular procedure risk including anesthesia were very high for them. Her speech has improved considerably miniam dysarthria that's mild, slight aphasia. SHe is raising her arms this AM with improved strength though still pronator drift noted on LUE. Carotid doppler w/o hemodynamic significant stenosis. Can reduce BP, maintain < 160/90. MRI brain completed and R basal ganglia infarct, acute noted. Chronic Left internal capsule infarct also noted. AC was being held, restarted. LDL 128, has been started on Lipitor 80mg. Also Reviewed Echo with normal LV function, wall motion normal. daughter aware of above. Plan is for back to [facility] for rehab. Active Medications Al Hydroxide/Mg Hydroxide (Mylanta Oral Suspension -) 30 ml PO TID PRN PRN Reason: PAIN Albuterol/Ipratropium (Duoneb -) 1 amp NEB Q6H PRN PRN Reason: SHORTNESS OF BREATH Apixaban (Eliquis -) 5 mg PO BID [facility] Last Admin: 12/25/17 22:14 Dose: 5 mg Atenolol (Tenormin -) 50 mg PO DAILY [facility] Last Admin: 12/25/17 09:47 Dose: 50 mg Atorvastatin Calcium (Lipitor -) 80 mg PO HS [facility] Last Admin: 12/25/17 22:14 Dose: 80 mg Docusate Sodium (Colace -) 200 mg PO HS [facility] Last Admin: 12/25/17 22:14 Dose: 200 mg Duloxetine HCl (Cymbalta -) 60 mg PO DAILY [facility] Ferrous Sulfate (Feosol -) 325 mg PO BID [facility] Last Admin: 12/25/17 22:13 Dose: 325 mg Gabapentin (Neurontin -) 100 mg PO TID [facility] Last Admin: 12/26/17 06:13 Dose: 100 mg Labetalol HCl (Normodyne Injection -) 10 mg IVPUSH Q4H PRN PRN Reason: HYPERTENSION Leflunomide (Arava -) 10 mg PO DAILY [facility] Last Admin: 12/25/17 11:34 Dose: 10 mg Levothyroxine Sodium (Synthroid -) 112 mcg PO DAILY@0700 [facility] Last Admin: 12/26/17 06:13 Dose: 112 mcg Lisinopril (Prinivil) 10 mg PO DAILY [facility] Last Admin: 12/25/17 09:47 Dose: 10 mg Loratadine (Claritin -) 10 mg PO DAILY [facility] Last Admin: 12/25/17 09:47 Dose: 10 mg Magnesium Hydroxide (Milk Of Magnesia -) 30 ml PO DAILY PRN PRN Reason: PAIN Melatonin (Melatonin) 3 mg PO HS [facility] Last Admin: 12/25/17 22:22 Dose: Not Given Mirtazapine (Remeron -) 22.5 mg PO DAILY [facility] Last Admin: 12/25/17 09:47 Dose: 22.5 mg Oxybutynin Chloride (Ditropan -) 5 mg PO DAILY [facility] Last Admin: 12/25/17 09:47 Dose: 5 mg Pantoprazole Sodium (Protonix -) 40 mg PO DAILY [facility] Senna (Senna -) 2 tab PO HS [facility] Last Admin: 12/25/17 22:13 Dose: 2 tab *Physical Exam Vital Signs Period Temp Pulse Resp BP Sys/Banuelos Pulse Ox Last 24 Hr 98.1 F-98.9 F 59-78 16-20 140-159/54-98 94-96 "GENERAL: Awake, alert, and fully oriented, in no acute distress. HEAD: No signs of trauma EYES: PERRLA, EOMI, sclera anicteric, conjunctiva clear ENT: Auricles normal inspection, hearing grossly normal, nares patent, oropharynx clear without exudates. Moist mucosa NECK: Nontender, no stepoffs, Normal ROM, supple, no lymphadenopathy, JVD, or masses LUNGS: Breath sounds equal, clear to auscultation bilaterally. No wheezes, and no crackles HEART: Regular rate and rhythm, normal S1 and S2, no murmurs, rubs or gallops ABDOMEN: Soft, nontender, normoactive bowel sounds. No guarding, no rebound. No masses EXTREMITIES: Normal range of motion, no edema. No clubbing or cyanosis. No cords, erythema, or tenderness NEUROLOGICAL: + L facial droop, minimal dysarthria, +L pronator drift, +LLE weakness 4-/5, sensation intact throughout, LUE 4+/5 SKIN: Warm, Dry, normal turgor, no rashes or lesions noted Gait deferred CBCD WBC 7.1 K/mm3 (4.0-10.0) D 12/25/17 05:35 RBC 2.80 M/mm3 (3.60-5.2) L 12/25/17 05:35 Hgb 8.3 GM/dL (10.7-15.3) L D 12/25/17 05:35 Hct 25.1 % (32.4-45.2) L 12/25/17 05:35 MCV 89.3 fl (80-96) 12/25/17 05:35 MCHC 33.1 g/dl (32.0-36.0) 12/25/17 05:35 RDW 14.2 % (11.6-15.6) 12/25/17 05:35 Plt Count 272 K/MM3 (134-434) 12/25/17 05:35 MPV 9.3 fl (7.5-11.1) 12/25/17 05:35 CMP Sodium 141 mmol/L (136-145) 12/25/17 05:35 Potassium 3.7 mmol/L (3.5-5.1) 12/25/17 05:35 Chloride 106 mmol/L (98-107) 12/25/17 05:35 Carbon Dioxide 25 mmol/L (21-32) 12/25/17 05:35 Anion Gap 10 (8-16) 12/25/17 05:35 BUN 12 mg/dL (7-18) 12/25/17 05:35 Creatinine 1.0 mg/dL (0.55-1.02) 12/25/17 05:35 Creat Clearance w eGFR 53.08 (>60) 12/25/17 05:35 Calcium 8.8 mg/dL (8.5-10.1) 12/25/17 05:35 Total Bilirubin 0.4 mg/dL (0.2-1.0) D 12/25/17 05:35 AST 16 U/L (15-37) 12/25/17 05:35 ALT 12 U/L (12-78) 12/25/17 05:35 Alkaline Phosphatase 116 U/L (45-117) 12/25/17 05:35 Total Protein 6.5 g/dl (6.4-8.2) 12/25/17 05:35 Albumin 2.7 g/dl (3.4-5.0) L 12/25/17 05:35 CT head reviewed Carotid Doppler without HD significant strenosis MRI brain reviewed Echo reviewed PLAN: 82 year old female, from [facility], with a significant PMH of hypertension, COPD , RA, anemia, hypothyroidism, UTI, dementia, GERD, breast cancer, who presents to the emergency department with slurred speech and left sided facial droop possibly with R MCA stroke. CT head was completed and patient on Xarelto and therefore not TPA candidate. Discussed with them thrombectomy as possible intervention, the family and patient decided to forgo endovascular intervention Patient was in trendelenberg to allow cerebral perfusion, improved in strenght and speech Blood pressure control, goal < 160/90 for now, < 130/90 as outpatient MRI brain reviewed, R basal ganglia infarct confirmed Caridiology consult reviewed, recommened Eliquis instead of Xarelto AC restarted Started on lipitor 80, LDL 128, may be able to reduce as outpatient to 40mg after recheck LDL in 4 weeks Physcial therapy Plan is to go back to [facility]
[2017-12-26] MEDS ORDERED: PANTOPRAZOLE 40 MG TABLET (FP) PO SCH (10:00)
[2017-12-26] MEDS ORDERED: DULoxetine HCL 30 MG CAPSULE.DR (FP) PO SCH (10:00)
--- NOTE | 2017-12-26 10:06 | PN ---
Progress Note, THERAPY ASSISTANT - Note Progress Note: MRI brain- Acute R basal ganglia infarct Selected Entries 12/25/17 12/25/17 12/25/17 01:37 05:00 09:00 Breakfast Supper Temperature 98.2 F 97.8 F 98.1 F 12/25/17 12/25/17 12/25/17 10:31 14:00 18:00 Breakfast 50% Supper Temperature 98.6 F 98.1 F 12/25/17 12/25/17 12/26/17 18:33 22:00 02:00 Breakfast Supper 25% Temperature 98.1 F 98.9 F 12/26/17 05:50 Breakfast Supper Temperature 98.2 F Laboratory Tests 12/24/17 12/25/17 05:28 05:35 WBC 11.0 H D 7.1 D Speech production /cognition good. Left facial. Pt reports that she is eating well. REC: Reg diet/thin liquid. Supplements, as indicated
[2017-12-26] MEDS ORDERED: PT OWN MED DRAWER 7, Y5N ONE (10:10)
[2017-12-26] MEDS: LORATADINE 10 MG TABLET PO SCH (10:12)
[2017-12-26] MEDS: APIXABAN 5 MG TABLET PO SCH (10:12)
[2017-12-26] MEDS: LISINOPRIL 10 MG TABLET (FP) PO SCH (10:12)
[2017-12-26] MEDS: MIRTAZAPINE 15 MG TABLET (FP) PO SCH (10:13)
[2017-12-26] MEDS: OXYBUTYNIN CHLORIDE 5 MG TABLET PO SCH (10:13)
[2017-12-26] MEDS: FERROUS SO4 325 MG TABLET (FP) PO SCH (10:13)
[2017-12-26] MEDS: ATENOLOL 50 MG TABLET (FP) PO SCH (10:14)
[2017-12-26] MEDS: LEFLUNOMIDE 10 MG TABLET PO SCH (10:14)
--- NOTE | 2017-12-26 14:21 | PN ---
Physical Exam: SUBJECTIVE: Patient seen and examined No acute events overnight. Patient feels well this morning. Denies any complaints. Tolerating diet without n/v. Denies weakness, numbness, tingling. OBJECTIVE: Vital Signs Period Temp Pulse Resp BP Sys/Banuelos Pulse Ox Last 24 Hr 97.6 F-98.9 F 59-78 16-19 140-159/54-83 94-96 GENERAL: The patient is awake, alert, and fully oriented, in no acute distress. HEAD: Normal with no signs of trauma. EYES: PERRL, Extraocular movements intact, sclera anicteric, conjunctiva clear. No ptosis. ENT: Oropharynx clear without exudates, moist mucous membranes. NECK: Trachea midline, full range of motion, supple. LUNGS: Breath sounds equal, clear to auscultation bilaterally, no wheezes, no crackles, no accessory muscle use. HEART: Regular rate and rhythm, S1, S2 without murmur, rub or gallop. ABDOMEN: Soft, nontender, nondistended, normoactive bowel sounds, no guarding, no rebound, no hepatosplenomegaly, no masses. EXTREMITIES: 2+ pulses, warm, well-perfused, no edema. NEUROLOGICAL: Cranial nerves II through XII grossly intact. Normal speech, + mild left facial droop, +LUE/LLE strength (4/5), sensation intact bilaterally PSYCH: Normal mood, normal affect. SKIN: Warm, dry, normal turgor, no rashes or lesions noted Active Medications Generic Name Dose Route Start Last Admin Trade Name Freq PRN Reason Stop Dose Admin Al Hydroxide/Mg Hydroxide 30 ml 12/25/17 08:03 Mylanta Oral Suspension - PO TID PRN PAIN Albuterol/Ipratropium 1 amp 12/24/17 21:00 Duoneb - NEB Q6H PRN SHORTNESS OF BREATH Apixaban 5 mg 12/25/17 10:00 12/26/17 10:12 Eliquis - PO 5 mg BID [facility] Administration Atenolol 50 mg 12/25/17 10:00 12/26/17 10:14 Tenormin - PO 50 mg DAILY [facility] Administration Atorvastatin Calcium 80 mg 12/24/17 22:00 12/25/17 22:14 Lipitor - PO 80 mg HS [facility] Administration Docusate Sodium 200 mg 12/25/17 22:00 12/25/17 22:14 Colace - PO 200 mg HS [facility]IE Administration Duloxetine HCl 60 mg 12/26/17 10:00 12/26/17 10:12 Cymbalta - PO 60 mg DAILY [facility] Administration Ferrous Sulfate 325 mg 12/25/17 10:00 12/26/17 10:13 Feosol - PO 325 mg BID [facility] Administration Gabapentin 100 mg 12/25/17 14:00 12/26/17 13:27 Neurontin - PO 100 mg TID [facility] Administration Labetalol HCl 10 mg 12/24/17 21:00 Normodyne Injection - IVPUSH Q4H PRN HYPERTENSION Leflunomide 10 mg 12/25/17 10:00 12/26/17 10:14 Arava - PO 10 mg DAILY [facility] Administration Levothyroxine Sodium 112 mcg 12/26/17 07:00 12/26/17 06:13 Synthroid - PO 112 mcg DAILY@0700 [facility] Administration Lisinopril 10 mg 12/25/17 10:00 12/26/17 10:12 Prinivil PO 10 mg DAILY [facility] Administration Loratadine 10 mg 12/25/17 10:00 12/26/17 10:12 Claritin - PO 10 mg DAILY [facility] Administration Magnesium Hydroxide 30 ml 12/25/17 08:03 Milk Of Magnesia - PO DAILY PRN PAIN Melatonin 3 mg 12/25/17 22:00 12/25/17 22:22 Melatonin PO Not Given HS [facility] Mirtazapine 22.5 mg 12/25/17 10:00 12/26/17 10:13 Remeron - PO 22.5 mg DAILY [facility] Administration Oxybutynin Chloride 5 mg 12/25/17 10:00 12/26/17 10:13 Ditropan - PO 5 mg DAILY [facility] Administration Pantoprazole Sodium 40 mg 12/26/17 10:00 12/26/17 10:12 Protonix - PO 40 mg DAILY [facility] Administration Senna 2 tab 12/25/17 22:00 12/25/17 22:13 Senna - PO 2 tab HS [facility] Administration ASSESSMENT/PLAN: 82 year-old female from [facility] [address] [place] with a PMH significant for HTN, h/o DVT on Xarelto, COPD, RA, anemia, hypothyroidism, recurrent UTIs, GERD, breast cancer, dementia, and s/p spinal surgery presented with acute cva #CVA, acute -CT head negative -MRI brain reviewed -Neurology consult, Dr. Lauren -Cardiology consult, Dr. Ceja-- given CVA on ac -Patient switched to eliquis 5 mg po bid from xarelto -Lipitor 80 mg po hs #Hypertension -Atenolol 50 mg daily -Lisinopril 10 mg daily #History of DVT -Switched xarelto to eliquis 5 mg po bid #COPD -duonebs PRN #Rheumatoid athritis -cont leflunomide #Anemia -h/h stable #Hypothyroidism -Cont synthroid #GERD -cont protonix PO #Breast cancer -stable FEN Fluids: no ivf Electrolytes: replete as indicated Nutrition: soft diet DVT prophylaxis: eliquis Physical therapy Dispo: Full admission. Can transfer to tele Visit type - Emergency Visit Emergency Visit: Yes ED Registration Date: 12/24/17 Care time: The patient presented to the Emergency Department on the above date and was hospitalized for further evaluation of their emergent condition. - New Patient This patient is new to me today: No - Critical Care Critical Care patient: No
--- NOTE | 2017-12-26 14:22 | PN ---
Teaching Attending Note Name of Resident: Nolberto Kebede ATTENDING PHYSICIAN STATEMENT I saw and evaluated the patient. I reviewed the resident's note and discussed the case with the resident. I agree with the resident's findings and plan as documented. SUBJECTIVE: Patient is awake and alert, calm and cooperative, waiting for transfer to SNF today. OBJECTIVE: Last Vital Signs Temp Pulse Resp BP Pulse Ox 97.6 F 65 19 156/71 94 L 12/26/17 10:12/26/17 10:12/26/17 10:12/26/17 10:12/26/17 08:50 Lungs are clear, heart is without M, abd soft and NT ASSESSMENT AND PLAN: CVA, postive MRI for R basal ganglia CVA On elequis now for PAF and hx of DVT, was switched from Xarelto for possible xarelto failure Would avoid antiplatelet superimposed on anticoagulant as risks of bleeding outweigh the benefits in this patient BP meds restarted, to follow blood pressure control in [place] Urine culture no growth, stop antibiotics.
[2017-12-26 19:02] VITALS: BP 153/75; PULSE 72; TEMP 98
== END 2017-12-26 19:04 | DRG 65 ==
LOC: JER 15:34 → JERBED 19:33 → JICU 21:07 → OBSVTOIN 12-24 13:43 → J4S 12-24 21:29
PROVIDERS: ADMIT Hospitalist; ATTEND Emergency Medicine
DX: I63.8 Other cerebral infarction (principal); G81.94 Hemiplegia, unspecified affecting left nondominant side; R47.01 Aphasia; I69.328 Other speech and language deficits following cerebral infarction; R29.810 Facial weakness; L89.302 Pressure ulcer of unspecified buttock, stage 2; I48.0 Paroxysmal atrial fibrillation; J44.9 Chronic obstructive pulmonary disease, unspecified; I10 Essential (primary) hypertension; E03.9 Hypothyroidism, unspecified; M06.9 Rheumatoid arthritis, unspecified; Z86.718 Personal history of other venous thrombosis and embolism; Z79.01 Long term (current) use of anticoagulants; F03.90 Unspecified dementia, unspecified severity, without behavioral disturbance, psychotic disturbance, mood disturbance, and anxiety; Z85.3 Personal history of malignant neoplasm of breast; Z88.0 Allergy status to penicillin; F32.9 Major depressive disorder, single episode, unspecified; K21.9 Gastro-esophageal reflux disease without esophagitis; D64.9 Anemia, unspecified; I27.20 Pulmonary hypertension, unspecified; R29.704 NIHSS score 4; Z99.3 Dependence on wheelchair; Z66 Do not resuscitate; I34.0 Nonrheumatic mitral (valve) insufficiency
CPT/HCPCS: 36415; 70450-TC; 70551-TC; 71045-TC-FY; 80053; 81003; 82465; 82550; 82962; 83718; 83721; 83735; 84100; 84478; 84484; 85025; 85610; 86850; 86900; 86901; 87086; 93005; 93010; 93306-TC; 93880-TC; 97116-GP; 97161-GP; 99285-25; G0378; J1644; J7030